=== PATIENT | female | born 1930 | race Caucasian/White ===

== ENCOUNTER 2017-08-10 09:43 | Observation (INO) | payer MEDICARE, OTHER ==
[~2017-08-10] VITALS: Ht 162.6 cm; Wt 63.5 kg
[~2017-08-10 09:43] MED LIST: ADVAIR 100-501 EACH; ALLEGRA ALLERG180 MG PO; AMLODIPINE-BEN1 EACH PO; ASPIRIN81 MG PO; BILBERRY PO; BRIMONIDINE OU; BRINZOLAMIDE OU; CALCIUM,MAG,ZINC PO; CENTRUM COMPLE1 EACH PO; CLOBETASOL1 EA/15 GM TOP; CYANOCOBALAMIN SL; FISH OIL 1,0001 EAC2 PO; LEVOTHYROXINE100 MCG PO; MYRBETRIQ50 MG PO; NEXIUM40 MG PO; NIACIN500 M2 PO; PONARIS NASAL E30 ML; TOPROL XL100 MG PO; TRICOR145 MG PO; VESICARE5 MG PO; ZANTAC150 MG PO; ZETIA10 MG PO
[2017-08-10 10:34] LABS: BASOPHILS % 0.3 % (0.0-1.0); EOSINOPHILS % 0.3 % (0.0-6.0); HEMATOCRIT 40.9 % (34.2-44.1); HEMOGLOBIN 13.8 g/dL (12.0-16.0); LYMPHOCYTES # (AUTO) 1.2 (1.0-3.2); LYMPHOCYTES % 10.2 % (18.0-39.1); MEAN CORPUSCULAR HEMOGLOBIN 29.4 pg (28-32); MEAN CORPUSCULAR HGB CONC 33.7 g/dL (31-35); MONOCYTES # (AUTO) 0.8 (0.2-0.8); MONOCYTES % 7.1 % (4.4-11.3); NEUTROPHILS # (AUTO) 9.4 (2.1-6.9); NEUTROPHILS % 81.8 % (38.7-80.0); PLATELET COUNT 337 x10e3/uL (140-360); RED CELL DISTRIBUTION WIDTH 14.6 % (11.7-14.4)
[2017-08-10 10:38] LABS: INR 1.66; PROTHROMBIN TIME 18.4 seconds (11.9-14.5)
[2017-08-10 10:40] LABS: PARTIAL THROMBOPLASTIN TIME 29.1 seconds (23.8-35.5)
[2017-08-10 10:47] LABS: ALBUMIN 3.7 g/dL (3.5-5.0); ALBUMIN/GLOBULIN RATIO 1.2 (0.8-2.0); ANION GAP 14.9 mmol/L (8-16); CALCIUM 9.4 mg/dL (8.4-10.2); CREATININE, SERUM 1.19 mg/dL (0.57-1.11); MAGNESIUM 1.8 MG/DL (1.3-2.1); POTASSIUM 3.9 mmol/L (3.5-5.1)
[2017-08-10 10:55] LABS: CREATINE KINASE MB 2.7 ng/mL (0-5.0)
[2017-08-10 10:55] LABS: CLARITY,URINE CLEAR (CLEAR); COLOR,URINE YELLOW (YELLOW)
[2017-08-10 10:56] LABS: BILIRUBIN,URINE NEGATIVE (NEGATIVE); KETONES,URINE NEGATIVE (NEGATIVE); LEUKOCYTE ESTERASE ,URINE NEGATIVE (NEGATIVE); NITRITE,URINE NEGATIVE (NEGATIVE); PROTEIN,URINE DIPSTICK NEGATIVE (NEGATIVE); URINE UROBILINOGEN 0.2 mg/dL (0.2 - 1)
[2017-08-10 11:08] LABS: EPITHELIAL CELLS,URINE RARE /LPF
[2017-08-10 11:09] LABS: RBC,URINE 0-5 /HPF (0-5); WBC,URINE (MAN) 0-5 /HPF (0-5)
[2017-08-10 11:10] LABS: HYALINE CASTS 0-1 (0-1)
--- NOTE | 2017-08-10 11:25 | Diagnostic Imaging Report ---
History:Confused Comparison studies:None Technique: Axial images were obtained from the skull base to the vertex. Coronal and sagittal images reconstructed from the axial data. Intravenous contrast: None Findings: Scalp/skull: No abnormalities. Extra-axial spaces: No masses. No fluid collections. Brain sulci: Mildly prominent. Ventricles: Mild compensatory dilatation. No hydrocephalus. Parenchyma: Ill-defined confluent hypodensities in the supratentorial white matter are small vessel ischemic changes. No masses, hemorrhage, acute or chronic cortical vascular insults. Sellar/suprasellar region: No abnormalities. Craniocervical junction: Patent foramen magnum. No Chiari one malformation. Incidental findings: Atherosclerotic calcifications in the carotid siphons and distal vertebral arteries. Impression: No acute abnormalities. Chronic findings: 1. Mild generalized volume loss. 2. Diffuse supratentorial white matter small vessel ischemic changes. Signed by: Dr. Gee Martínez M.D. on 08/10/2017 4:40 PM
[2017-08-10] MEDS ORDERED: SODIUM CHLORIDE 0.9% 1000ML 1,000 ML ONE (13:08)
--- NOTE | 2017-08-10 13:49 | Diagnostic Imaging Report ---
PROCEDURE: A single AP view of the chest. COMPARISON: None. INDICATIONS: COUGH FINDINGS: Lines/tubes: None. Lungs: The lungs are well inflated and clear. Mild bibasilar atelectasis. There is no evidence of pneumonia or pulmonary edema. Pleura: There is no pleural effusion or pneumothorax. Heart and mediastinum: Calcified mediastinal lymph node. The heart and the mediastinum are unremarkable. Bones: No acute bony abnormality. Upper abdomen: No free air under the diaphragm. IMPRESSION: No acute cardiopulmonary disease. Dictated by: Ivan Paredes M.D. on 08/10/2017 at 13:54 Electronically approved by: Ivan Paredes M.D. on 08/10/2017 at 13:54
[2017-08-10] MEDS ORDERED: AMLODIPINE BESYL5 MG PO (14:07)
[2017-08-10] MEDS ORDERED: METOPROLOL TART50 MG PO (14:14)
[2017-08-10] MEDS ORDERED: COLACE100 MG PO (14:17)
[2017-08-10] MEDS ORDERED: DIGOXIN125 MCG PO (14:19)
[2017-08-10] MEDS ORDERED: LASIX20 MG PO (14:19)
[2017-08-10] MEDS ORDERED: e PO (14:23)
[2017-08-10] MEDS ORDERED: LISINOPRIL10 MG PO (14:24)
[2017-08-10] MEDS ORDERED: LATANOPROST2.5 ML OP (14:24)
[2017-08-10] MEDS ORDERED: TOPROL XL50 MG PO (15:00)
[2017-08-10] MEDS ORDERED: VESICARE5 MG PO (15:01)
[2017-08-10] MEDS ORDERED: AZELASTINE HCL6 ML OU (15:06)
[2017-08-10] MEDS ORDERED: AMLODIPINE-BEN1 EACH PO (15:18)
[2017-08-10 15:19] VITALS: BP 91/55
[2017-08-10 16:44] VITALS: BP 118/81
[2017-08-10] MEDS ORDERED: [UNRECOGNIZED DRUG - OTHER] PO SCH (17:45)
[2017-08-10] MEDS ORDERED: FAMOTIDINE 20 MG TAB PO PRN (17:45)
[2017-08-10] MEDS ORDERED: DOCUSATE SODIUM 100 MG CAP PO PRN (17:45)
--- NOTE | 2017-08-10 19:29 | History and Physical ---
HISTORY OF PRESENT ILLNESS: This is an 86-year-old female patient of mine who presented to the emergency room from [facility]. The history was obtained from the patient with the help of the daughter. The patient had recently moved from [place], and the patient was recently admitted to [facility] with atrial fibrillation with rapid ventricular rate and pneumonia, and from there the patient was discharged home. The patient was having some issues at home, so the patient was admitted to the [facility] senior care care unit and the patient was supposed to be discharged tomorrow from the [facility], and the patient was found to be confused last night. The patient was disoriented and anxious as per family, and so the patient was transferred to the ER for further evaluation. The patient was confused with increased BUN and creatinine. ALLERGIES: LATEX. PAST MEDICAL HISTORY: Hypertension, atrial fibrillation, hypothyroidism, dementia, GERD, hyperlipidemia. Recent history of pneumonia. Frequent falls. SOCIAL HISTORY: Denies smoking, denies using alcohol. FAMILY HISTORY: Hypertension. REVIEW OF SYSTEMS: As per history of present illness. The patient has weakness, moderate and generalized. PHYSICAL EXAMINATION VITAL SIGNS: Temperature 98, pulse rate 84, respirations 20, blood pressure 148/74. Pulse ox 100% on room air. HEENT: Normocephalic atraumatic. NECK: No JVD, no lymphadenopathy. LUNGS: Bilateral equal air entry; no rales, no rhonchi. HEART: S1, S2, irregularly irregular systolic murmur. ABDOMEN: Soft, bowel sounds present. NEUROLOGIC: No neurological deficit. EXTREMITIES: No edema. ADMITTING IMPRESSION DIAGNOSES: 1. Altered mental status, possible metabolic encephalopathy. 2. Frequent urination, urinary incontinence. 3. Atrial fibrillation with rapid ventricular rate. 4. Congestive heart failure secondary to atrial fibrillation. 5. Hypertension. 6. Hypothyroidism. 7. Hyperlipidemia. 8. Incontinence. 9. Gastroesophageal reflux disease. 10. Dementia. PLAN: The patient was admitted with the above diagnoses. Will restart her digoxin that was stopped because of non-availability including to control her heart rate, to be monitored. Will do PT and OT evaluation, and also will have case management evaluation for possible placement in assisted living facility and outpatient services. Will repeat laboratory examination tomorrow. The patient has elevated white count. I have discussed in detail with this patient's family. Job#: [id number] [place]
[2017-08-10 20:00] VITALS: BP 105/63
[2017-08-10] MEDS ORDERED: LATANOPROST(OPTH) 2.5 ML BTL OP SCH (21:00)
[2017-08-10] MEDS ORDERED: SOLIFENACIN SUCCINATE 5 MG TAB PO SCH (21:00)
[2017-08-11] VITALS: BP 122/60
[2017-08-11 04:00] VITALS: BP 128/74
[2017-08-11] MEDS ORDERED: APIXABAN 5 MG TABLET PO SCH (05:45)
[2017-08-11] MEDS ORDERED: LEVOTHYROXINE SODIUM 100 MCG TAB PO SCH (06:00)
[2017-08-11 06:14] LABS: BASOPHILS % 0.4 % (0.0-1.0); EOSINOPHILS # (AUTO) 0.1 (0.0-0.4); EOSINOPHILS % 1.3 % (0.0-6.0); HEMATOCRIT 37.3 % (34.2-44.1); HEMOGLOBIN 12.3 g/dL (12.0-16.0); LYMPHOCYTES # (AUTO) 1.5 (1.0-3.2); LYMPHOCYTES % 16.7 % (18.0-39.1); MEAN CORPUSCULAR HEMOGLOBIN 29.3 pg (28-32); MEAN CORPUSCULAR VOLUME 88.8 fL (81-99); MONOCYTES # (AUTO) 0.9 (0.2-0.8); MONOCYTES % 9.4 % (4.4-11.3); NEUTROPHILS # (AUTO) 6.5 (2.1-6.9); NEUTROPHILS % 71.9 % (38.7-80.0); PLATELET COUNT 275 x10e3/uL (140-360); RED CELL DISTRIBUTION WIDTH 14.9 % (11.7-14.4)
[2017-08-11 06:45] LABS: ALBUMIN 3.1 g/dL (3.5-5.0); ALBUMIN/GLOBULIN RATIO 1.2 (0.8-2.0); CALCIUM 8.6 mg/dL (8.4-10.2); CREATININE, SERUM 0.98 mg/dL (0.57-1.11)
--- NOTE | 2017-08-11 06:57 | Diagnostic Imaging Report ---
EXAMINATION: CHEST 2 VIEWS INDICATION: CHF. COMPARISON: 08/10/2017 FINDINGS: TUBES and LINES: None. LUNGS: Lungs are well inflated. Left lung base ill-defined nodularity only seen on AP view measuring 1.5 cm in diameter. There is no evidence of pneumonia or pulmonary edema. PLEURA: No pleural effusion or pneumothorax. HEART AND MEDIASTINUM: The cardiomediastinal silhouette is stable with calcified aortopulmonary window lymph node.. BONES AND SOFT TISSUES: No acute osseous lesion. Soft tissues are unremarkable. UPPER ABDOMEN: No free air under the diaphragm. IMPRESSION: 1. No acute thoracic abnormality. 2. Indeterminate nodule in the left hemithorax measuring 1.5 cm in diameter only seen on AP view Signed by: Dr. John Lopez M.D. on 08/11/2017 6:54 AM
[2017-08-11 08:00] VITALS: BP 112/68
[2017-08-11] MEDS ORDERED: METOPROLOL TARTRATE INJ 1 MG/ML VIAL IV PRN (08:15)
[2017-08-11] MEDS ORDERED: AZELASTINE HCL(OPTH) 6 ML BOTTLE OP SCH (09:00)
[2017-08-11] MEDS ORDERED: FENOFIBRATE 145 MG TAB PO SCH (09:00)
[2017-08-11] MEDS ORDERED: EZETIMIBE 10 MG TAB PO SCH (09:00)
[2017-08-11] MEDS ORDERED: NON-FORMULARY MEDICATION (Amlodipine Besylate/Benazepril (Amlodipine-Benazepril 5-20 Mg) 1 PO SCH (09:00)
[2017-08-11] MEDS ORDERED: BENAZEPRIL HCL 10 MG TAB PO SCH (09:00)
[2017-08-11] MEDS ORDERED: DIGOXIN 0.125 MG TAB PO SCH (09:00)
[2017-08-11] MEDS ORDERED: METOPROLOL SUCCINATE 50 MG TAB XL PO SCH ×2 (09:00)
[2017-08-11] MEDS ORDERED: PANTOPRAZOLE SOD 40 MG TABEC PO SCH (09:00)
[2017-08-11] MEDS ORDERED: AMLODIPINE BESYLATE 5 MG TAB PO SCH (09:00)
--- NOTE | 2017-08-11 09:54 | Consultation ---
DATE OF CONSULTATION: August 10, 2017 CARDIOLOGY CONSULTATION INDICATIONS: AFib. HPI: This is a pleasant 86-year-old female that presented with dysuria, urinary frequency and altered mental status. According to the patient and daughter at the bedside, she used to live at [facility], and relocated to [place], [place], to spend some time with her daughter. While over here, she was admitted at [facility] with pneumonia and later discharged to [facility] for rehab. Over there, she developed some confusion, urinary frequency, and she was admitted for evaluation. She has a history of AFib that was diagnosed earlier this year by her command center analyst in [facility]. She was started on Eliquis. She also stated she had a history of right leg DVT, and was on Coumadin for over 6 months, and later was stopped by her command center analyst over there. She denies any chest pain, any dizziness, any shortness of breath, any diaphoresis, or headache. She also complained of bilateral lower extremity coolness and pain and on the fingers also. BNP was 370. EKG showed AFib, irregularly irregular. Troponin was negative. PAST MEDICAL HISTORY: Hypothyroidism, AFib, hypertension, dementia, GERD, hyperlipidemia, falls, pneumonia, incontinence, broken back bone on the neck, allergies, DVT on the right leg, and pain to lower extremities. PAST SURGICAL HISTORY: Hernia repair and bilateral cataract surgery. FAMILY HISTORY: Positive for hypertension. SOCIAL HISTORY: No smoking. No drinking. She is living with her daughter over here. MEDICATIONS: She was on Norvasc, Colace, Nexium, Zetia, TriCor, Synthroid, metoprolol, Zantac, VESIcare, Eliquis, digoxin, metoprolol, benazepril, pantoprazole, and eye drops. ALLERGIES: SHE IS ALLERGIC TO LATEX. REVIEW OF SYSTEMS: Negative except those mentioned above. PHYSICAL EXAMINATION VITAL SIGNS: Temperature 97, heart rate 90, blood pressure 110/70, respirations 18, oxygen saturation 100% on room air. GENERAL: She is awake, alert and oriented times 3, but complaining of coolness to lower extremities and on the fingers. HEENT: Mucous membrane moist. NECK: Supple. LUNGS: Lungs bilateral clear to auscultation. CARDIOVASCULAR: Irregularly irregular. ABDOMEN: Soft. NEUROLOGICAL: Intact. EXTREMITIES: With no edema. LABS: Sodium 139, potassium 4, chloride 105, CO2 26, BUN 39, creatinine 0.98, glucose 92. White blood cell 9.03, hemoglobin 12.3, hematocrit 37.3, and platelets 275,000. PT 18.4, PTT 29.1 and INR 1.66. IMPRESSION 1. Atrial fibrillation. 2. Hypothyroidism. 3. History of deep venous thrombosis on the right leg. 4. Hypertension. 5. Altered mental status. 6. Hyperlipidemia. PLAN 1. Will go ahead and get an echocardiogram to assess the LV and the valve function. 2. Heart rate fluctuates. She is on Eliquis, beta bethanie and digoxin. Will go ahead and get bilateral lower extremity venous Doppler to rule out any DVT. Will also get bilateral carotid Doppler to rule out any occlusion due to the altered mental status. Will check a dig level and get an EKG. Her blood pressure has been running in the 110s. Will go ahead and decrease the beta bethanie. Further cardiac workup pending clinical course. Thank you for this consultation. DICTATED BY NICCI LORENZANA NP Job#: [id number] [place]
[2017-08-11 12:00] VITALS: BP 103/56
--- NOTE | 2017-08-11 14:23 | Discharge Summary ---
She is an 86-year-old female patient who was admitted under observation for altered mental status, metabolic encephalopathy. ADMITTING IMPRESSION/DIAGNOSIS 1. Altered mental status. 2. Urinary frequency. 3. Atrial fibrillation with rapid rate. 4. Decompensated congestive heart failure secondary to the atrial fibrillation with the uncontrolled rate. 5. Recent pneumonia. 6. Dementia. 7. Hypertension. 8. Hypothyroidism. 9. Urinary incontinence. HOSPITAL COURSE SUMMARY: Patient was admitted with the above diagnoses. Patient was admitted under observation. Telemetry monitoring was done. Patient's urine was negative for an infection. Patient was given metoprolol 100 mg twice a day. Patient will need local wound care for the foot abrasions that were secondary to the compression stockings. Patient's metoprolol will be increased to 100 mg twice a day. Patient will be followed up as outpatient with me tomorrow. Patient was recently admitted at [facility]; so, her previous echocardiogram and all the results will be obtained, and if necessary other workup will be done as outpatient. The patient will be discharged home with home health therapy. The patient will be followed up as outpatient with me as well as Cardiology. EMELIA BECKFORD MD Job#: [id number] MARTINA
== END 2017-08-11 14:46 | disposition home or self-care (01) ==
LOC: ER 09:47 → ERHOLD 12:54 → MED/SURG2 13:38
PROVIDERS: ADMIT Internal Medicine; ATTEND Internal Medicine
DX: G93.41 Metabolic encephalopathy (principal); R30.0 Dysuria; N39.41 Urge incontinence; I48.91 Unspecified atrial fibrillation; E03.9 Hypothyroidism, unspecified; E78.5 Hyperlipidemia, unspecified; K21.9 Gastro-esophageal reflux disease without esophagitis; F03.90 Unspecified dementia, unspecified severity, without behavioral disturbance, psychotic disturbance, mood disturbance, and anxiety; Z86.718 Personal history of other venous thrombosis and embolism; Z79.01 Long term (current) use of anticoagulants; S90.812A Abrasion, left foot, initial encounter; S90.811A Abrasion, right foot, initial encounter; I11.0 Hypertensive heart disease with heart failure; I50.9 Heart failure, unspecified
CPT/HCPCS: 36415 ×2; 70450; 71045; 71046; 80053 ×2; 80162; 81001; 82150; 82550; 82553; 83690; 83735; 83880; 84484; 85025 ×2; 85610; 85730; 87086; 93005; 93306; 93880; 93970; 97116; 97161; 99285; G0378 ×2; J7030; S0164

== ENCOUNTER → 2017-08-15 | Outpatient (CLI) | payer MEDICARE, OTHER ==
[~2017-08-15] MED LIST changes: +AMLODIPINE BESYL5 MG PO; +AZELASTINE HCL6 ML OU; +COLACE100 MG PO; +DIGOXIN125 MCG PO; +GADOBENATE DIMEGLUMINE 1 ML IV ONE; +LASIX20 MG PO; +LATANOPROST2.5 ML OP; +LISINOPRIL10 MG PO; +METOPROLOL TART50 MG PO; +TOPROL XL50 MG PO; +e PO
--- NOTE | 2017-08-15 18:29 | Diagnostic Imaging Report ---
EXAMINATION: MRI of the brain with and without contrast HISTORY: Confusion, hallucinations. COMPARISON: Head CT on 08/10/2017 TECHNIQUE: Pre-contrast: Sagittal T2; axial T1-IR, T2, MPGR, DWI, FLAIR; Post-contrast: axial and coronal T1. Intravenous contrast: 10 mL of Gadavist. IMAGE QUALITY: Motion artifact limits evaluation of the sequences. FINDINGS: Parenchyma: 1. Scattered and moderate confluent periventricular white matter T2 hyperintense foci, most likely nonspecific chronic medical vascular ischemic changes. Otherwise no areas of abnormal signal intensity or enhancement in the brain parenchyma. 2. No mass or hemorrhage. No acute or chronic vascular insult. Skull: No abnormal signal intensity or enhancement. Major arteries: Expected flow voids present. Dural sinuses: Expected flow voids present. Ventricles: No hydrocephalus or displacement. Subarachnoid spaces: No abnormal signal intensity or enhancement. Brain volume: Normal for age. Foramen magnum: No mass, Chiari malformation, or basilar invagination. Sella: No gross mass. Paranasal/mastoid sinuses: Unremarkable. IMPRESSION: Mild chronic microvascular ischemic changes, otherwise no intracranial abnormalities. Signed by: Dr. Yamile Amador M.D. on 08/15/2017 6:25 PM
== END ==
LOC: MRI 14:26
PROVIDERS: ATTEND Internal Medicine
DX: F03.91 Unspecified dementia, unspecified severity, with behavioral disturbance (principal)
CPT/HCPCS: 70553

== ENCOUNTER 2017-11-14 22:39 | Emergency (ER) | payer MEDICARE, OTHER ==
[~2017-11-14] VITALS: Ht 162.6 cm; Wt 63.5 kg
[~2017-11-14 22:39] MED LIST changes: -GADOBENATE DIMEGLUMINE 1 ML IV ONE
[2017-11-14] MEDS ORDERED: ACETAMINOPHEN 325 MG TAB PO ONE (23:00)
[2017-11-14] MEDS ORDERED: ASPIRIN 81 MG CHEW TAB PO ONE (23:00)
[2017-11-14 23:55] LABS: BASOPHILS # (AUTO) 0.1 (0.0-0.1); BASOPHILS % 0.6 % (0.0-1.0); EOSINOPHILS # (AUTO) 0.8 (0.0-0.4); EOSINOPHILS % 8.2 % (0.0-6.0); HEMOGLOBIN 12.2 g/dL (12.0-16.0); LYMPHOCYTES # (AUTO) 1.6 (1.0-3.2); LYMPHOCYTES % 16.3 % (18.0-39.1); MEAN CORPUSCULAR HEMOGLOBIN 28.6 pg (28-32); MEAN CORPUSCULAR HGB CONC 32.1 g/dL (31-35); MONOCYTES # (AUTO) 0.8 (0.2-0.8); MONOCYTES % 7.8 % (4.4-11.3); NEUTROPHILS # (AUTO) 6.5 (2.1-6.9); NEUTROPHILS % 66.8 % (38.7-80.0); PLATELET COUNT 332 x10e3/uL (140-360); RED BLOOD COUNT 4.27 x10e6/uL (3.6-5.1); RED CELL DISTRIBUTION WIDTH 14.1 % (11.7-14.4)
[2017-11-15 00:04] LABS: INR 1.23; PROTHROMBIN TIME 16.6 seconds (11.9-14.5)
[2017-11-15 00:05] LABS: PARTIAL THROMBOPLASTIN TIME 32.6 seconds (23.8-35.5)
[2017-11-15 00:16] LABS: ALANINE AMINOTRANSFERASE 19 IU/L (0-55); ALBUMIN 3.2 g/dL (3.5-5.0); ALBUMIN/GLOBULIN RATIO 0.8 (0.8-2.0); ALKALINE PHOSPHATASE 61 IU/L (40-150); ANION GAP 16.6 mmol/L (8-16); BLOOD UREA NITROGEN 15 mg/dL (7-26); BUN/CREATININE RATIO 18 (6-25); CALCIUM 9.1 mg/dL (8.4-10.2); CARBON DIOXIDE 27 mmol/L (22-29); CHLORIDE 102 mmol/L (98-107); CREATINE KINASE 28 IU/L (29-168); CREATININE, SERUM 0.84 mg/dL (0.57-1.11); EST GLOMERULAR FILTRATION RATE > 60 ML/MIN (60-); GLUCOSE 111 mg/dL (74-118); POTASSIUM 3.6 mmol/L (3.5-5.1); SODIUM 142 mmol/L (136-145)
--- NOTE | 2017-11-15 00:31 | Diagnostic Imaging Report ---
History:AMS, high blood pressure Comparison studies:None Technique: Axial images were obtained from the skull base to the vertex. Coronal and sagittal images reconstructed from the axial data. Intravenous contrast: None Dose modulation, iterative reconstruction, and/or weight based adjustment of the mA/kV was utilized to reduce the radiation dose to as low as reasonably achievable. Findings: Scalp/skull: No abnormalities. Extra-axial spaces: No masses. No fluid collections. Brain sulci: Mildly prominent. Ventricles: Mild compensatory dilatation. No hydrocephalus. Parenchyma: Scattered small hypodensities in the supratentorial white matter are small vessel ischemic changes. No masses, hemorrhage, acute or chronic cortical vascular insults. Sellar/suprasellar region: No abnormalities. Craniocervical junction: Patent foramen magnum. No Chiari one malformation. Incidental findings: Atherosclerotic calcifications in the carotid siphons . Impression: No acute abnormalities. Chronic findings: 1. Mild generalized volume loss. 2. Mild to moderate supratentorial white matter small vessel ischemic changes. Signed by: DR Chencho Zhong M.D. on 11/15/2017 12:28 AM
[2017-11-15 02:44] VITALS: BP 151/78
== END 2017-11-15 03:20 | disposition home or self-care (01) ==
LOC: ER 22:39
DX: G44.1 Vascular headache, not elsewhere classified (principal); I48.91 Unspecified atrial fibrillation; I10 Essential (primary) hypertension; E03.9 Hypothyroidism, unspecified; K21.9 Gastro-esophageal reflux disease without esophagitis; E78.5 Hyperlipidemia, unspecified; Z91.81 History of falling; Z79.01 Long term (current) use of anticoagulants
CPT/HCPCS: 36415; 70450; 80053; 82550; 82553; 84484; 85025; 85610; 85730; 93005; 99284

== ENCOUNTER 2017-11-28 08:09 | Emergency (ER) | payer MEDICARE, OTHER ==
[~2017-11-28] VITALS: Ht 162.6 cm; Wt 63.5 kg
--- NOTE | 2017-11-28 10:04 | Diagnostic Imaging Report ---
History:Fall, on blood thinners Comparison studies:CT head 11/15/2017 and 08/10/2017. MRI brain 2017 Technique: Axial images were obtained from the skull base to the vertex. Coronal and sagittal images reconstructed from the axial data. Intravenous contrast: None Dose modulation, iterative reconstruction, and/or weight based adjustment of the mA/kV was utilized to reduce the radiation dose to as low as reasonably achievable. Findings: Scalp/skull: No abnormalities. Extra-axial spaces: No masses. No fluid collections. Brain sulci: Mildly prominent. Ventricles: Mild compensatory dilatation. No hydrocephalus. Parenchyma: Scattered hypodensities in the supratentorial white matter are small vessel ischemic changes. No masses, hemorrhage, acute or chronic cortical vascular insults. Sellar/suprasellar region: No abnormalities. Craniocervical junction: Patent foramen magnum. No Chiari one malformation. Incidental findings: Atherosclerotic calcifications in the carotid siphons and vertebral arteries . Impression: No acute abnormalities. Chronic findings: 1. Mild generalized volume loss. 2. Moderate supratentorial white matter small vessel ischemic changes. Signed by: DR Chencho Zhong M.D. on 11/28/2017 10:01 AM
--- NOTE | 2017-11-28 10:08 | Diagnostic Imaging Report ---
History: Fall Comparison studies: None Technique: Axial images were obtained through the cervical region.. Coronal and sagittal images reconstructed from the axial data.. Intravenous contrast: None Dose modulation, iterative reconstruction, and/or weight based adjustment of the mA/kV was utilized to reduce the radiation dose to as low as reasonably achievable. Findings: Fractures: None. Soft tissues: No gross abnormalities. Atlantoaxial articulation: Degenerative changes without acute abnormality. Alignment: Normal lordosis. No scoliosis. Cervicomedullary junction: No abnormalities. The foramen magnum is patent. Vertebrae: No infection or neoplasm. Small limbus vertebra at C5 superior endplate. Degenerative changes: Uncinate process and facet hypertrophy results in multilevel moderate foraminal narrowing, from C4 through C6 without significant canal stenosis. Atherosclerotic calcifications of the carotid bulbs IMPRESSION: 1. No acute cervical spine abnormalities. 2. Cannot exclude ligament, spinal cord and or vascular abnormalities on the basis of this examination. Signed by: DR Chencho Zhong M.D. on 11/28/2017 10:05 AM
[2017-11-28 11:10] VITALS: BP 158/85
[2017-11-28] MEDS ORDERED: NIFEDIPINE 10 MG CAP PO ONE (11:30)
== END 2017-11-28 12:50 | disposition home or self-care (01) ==
LOC: ER 08:09
DX: Z04.3 Encounter for examination and observation following other accident (principal); W06.XXXA Fall from bed, initial encounter; Y93.84 Activity, sleeping; Y92.003 Bedroom of unspecified non-institutional (private) residence as the place of occurrence of the external cause; I10 Essential (primary) hypertension; E03.9 Hypothyroidism, unspecified; I50.9 Heart failure, unspecified
CPT/HCPCS: 70450; 72125; 99283

== ENCOUNTER 2017-12-29 14:05 | Inpatient (IN) | payer MEDICARE, OTHER ==
[~2017-12-29] VITALS: Ht 160 cm; Wt 63.1 kg
--- OUTSIDE RECORDS SUMMARY | 2017-12-29 14:09 | XMS REPORT | Continuity of Care Document ---
Author Author [facility] Interface Address Unknown Phone Unavailable Problems Problem Status Onset Date Classification Date Reported Comments Source XRAY Active 07/06/2017 [facility] AFIB Active 06/23/2017 [facility] PNEUMONIA, A FIB, CHF Active 06/23/2017 [facility] Pneumonia, unspecified organism 06/29/2017 [facility] UNSPECIFIED ATRIAL FIBRILLATION Active [facility] PNEUMONIA, UNSPECIFIED ORGANISM Active [facility] HEART FAILURE, UNSPECIFIED Active [facility] COUGH Active [facility] Medications Medication Details Route Status Patient Instructions Ordering Provider Order Date Source Furosemide 40 MG Oral Tablet [Lasix] 40 mg, 1 tab, Route: PO, Drug form: TAB, Daily, Dosing Weight 71.591, kg, Start date: 06/27/17 9:00:00 CDT, Duration: 30 day, Stop date: 07/26/17 9:00:00 CDTNotes: (Same as: Lasix) May cause GI upset. Give with food or milk. No Longer Active 06/27/2017 [facility] Amlodipine 5 MG / Benazepril hydrochloride 20 MG Oral Capsule 1 cap, Route: PO, Drug Form: CAP, Dosing Weight 71.591, kg, Daily, Start date: 06/26/17 17:00:00 CDT, Duration: 30 day, Stop date: 07/26/17 9:00:00 CDT No Longer Active 06/26/2017 [facility] potassium chloride 10 mEq oral tablet, extended release 10 mEq=1 tab, PO, Daily, # 14 tab, 0 Refill(s), Pharmacy: [facility] [id number] Active 06/26/2017 [facility] Digoxin 0.25 MG Oral Tablet 0.25 mg=1 tab, PO, Daily, # 30 tab, 0 Refill(s), Pharmacy: [facility] [id number] Active 06/26/2017 [facility] Saccharomyces boulardii lyo 250 MG Oral Capsule [Florastor] 250 mg=1 cap, PO, BID, X 7 day, # 20 cap, 0 Refill(s), Pharmacy: [facility] [id number] Active 06/26/2017 [facility] Cefuroxime 500 MG Oral Tablet [Ceftin] 500 mg=1 tab, PO, Q12H, X 5 day, # 10 tab, 0 Refill(s), Pharmacy: [facility] [id number] Active 06/26/2017 [facility] Furosemide 20 MG Oral Tablet [Lasix] 20 mg=1 tab, PO, Daily, # 30 tab, 0 Refill(s), Pharmacy: [facility] [place] [id number] Active 06/26/2017 [facility] Dextromethorphan Hydrobromide 2 MG/ML / Guaifenesin 20 MG/ML Oral Solution 10 mL, PO, Q4H, PRN Cough, X 7 day, # 120 mL, 0 Refill(s), Pharmacy: [facility] [place] [id number] Active 06/26/2017 [facility] potassium chloride 20 mEq oral tablet, extended release 40 mEq, 2 tab, Route: PO, Drug form: ERTAB, ONCE, Dosing Weight 71.591, kg, Start date: 06/26/17 11:31:00 CDT, Stop date: 06/26/17 11:31:00 CDTNotes: (Same as: K-Dur 20) "Do Not Crush" For patients unable to swallow tablet, dissolve in one half glass of water. Allow about 2 minutes for the tablets to disintegrate. Stir before giving to prepare slurry and administer. Please exclude Patient’s with feeding tube less than 14 Norwegian (Dobhoff, J-tube etc) and pediatric and patients. With food and full glass of water Inactive 06/26/2017 [facility] amLODIPine 5 mg, 1 tab, Route: PO, Drug form: TAB, Daily, Start date: 06/25/17 17:00:00 CDT, Duration: 30 day, Stop date: 07/24/17 17:00:00 CDTNotes: (Same as: Norvasc) No Longer Active 06/25/2017 [facility] lisinopril 20 mg, 1 tab, Route: PO, Drug form: TAB, Q24H, Start date: 06/25/17 14:00:00 CDT, Duration: 30 day, Stop date: 07/24/17 17:00:00 CDTNotes: (Same as: Prinivil, Zestril) No Longer Active 06/25/2017 [facility] Digoxin 0.25 MG Oral Tablet 0.25 mg, 1 tab, Route: PO, Drug form: TAB, Daily, Dosing Weight 71.591, kg, Priority: Routine, Start date: 06/25/17 9:00:00 CDT, Duration: 30 day, Stop date: 07/24/17 9:00:00 CDTNotes: Take on an Empty Stomach (Same as: Lanoxin) No Longer Active 06/25/2017 [facility] Lasix 40 mg, 4 mL, Route: IVP, Drug form: INJ, Daily, Dosing Weight 71.591, kg, Priority: NOW, Start date: 06/24/17 11:19:00 CDT, Duration: 30 day, Stop date: 07/24/17 9:00:00 CDTNotes: (Same as: Lasix) MEDICATION WASTE Product Size: 40 mg Product Wasted: ___ mg No Longer Active 06/24/2017 [facility] pneumococcal capsular polysaccharide type 1 vaccine / pneumococcal capsular polysaccharide type 10A vaccine / pneumococcal capsular polysaccharide type 11A vaccine / pneumococcal capsular polysaccharide type 12F vaccine / pneumococcal capsular polysacchar 0.5 mL, Route: IM, Drug Form: INJ, Daily, Start date: 06/24/17 11:00:00 CDT, Duration: 1 doses or times, Stop date: 06/24/17 11:00:00 CDTNotes: (Same as: Pneumovax 23) Refrigerate Inactive 06/24/2017 [facility] Tricor 145 mg, 1 tab, Route: PO, Drug form: TAB, Daily, Dosing Weight 71.591, kg, Start date: 06/24/17 9:00:00 CDT, Duration: 30 day, Stop date: 07/23/17 9:00:00 CDTNotes: (Same as: Tricor) No Longer Active 06/24/2017 [facility] Zetia 10 mg, 1 tab, Route: PO, Drug form: TAB, Daily, Dosing Weight 71.591, kg, Start date: 06/24/17 9:00:00 CDT, Duration: 30 day, Stop date: 07/23/17 9:00:00 CDTNotes: (Same as: Zetia) No Longer Active 06/24/2017 [facility] Nexium 40 mg, Route: PO, Drug form: ECCAP, Daily, Dosing Weight 71.591, kg, Start date: 06/24/17 9:00:00 CDT, Duration: 30 day, Stop date: 07/23/17 9:00:00 CDT No Longer Active 06/24/2017 [facility] 24 HR mirabegron 50 MG Extended Release Tablet [Myrbetriq] 50 mg, 1 tab, Route: PO, Drug form: ERTAB, Daily, Dosing Weight 71.591, kg, Start date: 06/24/17 9:00:00 CDT, Duration: 30 day, Stop date: 07/23/17 9:00:00 CDT No Longer Active 06/24/2017 [facility] Protonix 40 mg, 1 tab, Route: PO, Drug form: ECTAB, Daily, Start date: 06/24/17 9:00:00 CDT, Duration: 30 day, Stop date: 07/23/17 9:00:00 CDTNotes: Tablet should not be chewed or crushed. (Same as: Protonix) No Longer Active 06/24/2017 [facility] Niacin 500 mg, 1 tab, Route: PO, Drug form: TAB, Daily, Dosing Weight 71.591, kg, Start date: 06/24/17 9:00:00 CDT, Duration: 30 day, Stop date: 07/23/17 9:00:00 CDTNotes: With food. No Longer Active 06/24/2017 [facility] please bring pt's MYRBETRIQ to pharmacy for verification please bring pt's MYRBETRIQ to pharmacy for verification, reminder, Drug form: MISC, Route: MISC, Daily, 06/24/17 9:00:00 CDT, Duration: 30 day, Stop date: 07/23/17 9:00:00 CDT No Longer Active 06/24/2017 [facility] *Pts own med-Myrbetriq* *Pts own med-Myrbetriq*, 50 mg, 1 tab, Drug form: MISC, Route: PO, Daily, 06/24/17 9:00:00 CDT, Duration: 30 day, Stop date: 07/23/17 9:00:00 CDT No Longer Active 06/24/2017 [facility] Synthroid 100 microgram, 1 tab, Route: PO, Drug form: TAB, [id number], Dosing Weight 71.591, kg, Start date: 06/24/17 6:30:00 CDT, Duration: 30 day, Stop date: 07/23/17 6:30:00 CDTNotes: Take 1 hour before or 2 hours after meal; Enteral feeds may interefere with the absorption of this medication. (Same as:Levothroid, Synthroid) No Longer Active 06/24/2017 [facility] Azithromycin 500 mg, 2 tab, Route: PO, Drug form: TAB, [id number], Dosing Weight 71.591, kg, Start date: 06/24/17 6:00:00 CDT, Duration: 2 day, Stop date: 06/25/17 6:00:00 CDT, ABX Indication: PneumoniaNotes: Take 1 ho ur before or 2 hours after meals. (Same As: Zithromax) No Longer Active 06/24/2017 [facility] Eliquis 5 mg, 1 tab, Route: PO, Drug form: TAB, Q12H, Dosing Weight 71.591, kg, Start date: 06/23/17 21:00:00 CDT, Duration: 30 day, Stop date: 07/23/17 9:00:00 CDTNotes: Same as: Eliquis No Longer Active 06/24/2017 [facility] 24 HR Metoprolol Tartrate 100 MG Extended Release Tablet [Toprol] 100 mg, 1 tab, Route: PO, Drug form: ERTAB, Q12H, Start date: 06/23/17 21:00:00 CDT, Duration: 30 day, Stop date: 07/23/17 9:00:00 CDTNotes: (Same as: Toprol XL) May split tab, but do not crush. No Longer Active 06/24/2017 [facility] Azelastine hydrochloride 0.5 MG/ML Ophthalmic Solution 1 drp, Route: BOTH EYES, BID, Drug form: SOLN, PRN Allergic reaction, Start date: 06/23/17 20:29:00 CDT, Duration: 30 day, Stop date: 07/23/17 20:28:00 CDTNotes: Non-Formulary Drug (Same As: Optivar) No Longer Active 06/24/2017 [facility] latanoprost 1 drp, Route: BOTH EYES, QPM, Drug form: SOLN, Start date: 06/23/17 17:00:00 CDT, Duration: 30 day, Stop date: 07/22/17 17:00:00 CDTNotes: Keep refrigerated. (Same as:Xalatan) Opened bottle may be s tored at room temperature for 6 weeks No Longer Active 06/23/2017 [facility] Budesonide 0.5 mg, 2 mL, Route: NEB, Drug form: SUSP, RBID, Dosing Weight 71.591, kg, Start date: 06/23/17 16:12:00 CDT, Duration: 30 day, Stop date: 07/23/17 8:00:00 CDTNotes: (Same As: Pulmicort) No Longer Active 06/23/2017 [facility] potassium chloride 20 mEq oral tablet, extended release 20 mEq, 1 tab, Route: PO, Drug form: ERTAB, Q4H, Dosing Weight 71.591, kg, Start date: 06/23/17 16:00:00 CDT, Duration: 2 doses or times, Stop date: 06/23/17 20:00:00 CDTNotes: (Same as: K-Dur 20) "Do Not Crush" For patients unable to swallow tablet, dissolve in one half glass of water. Allow about 2 minutes for the tablets to disintegrate. Stir before giving to prepare slurry and administer. Please exclude Patients with feeding tube less than 14 Norwegian (Dobhoff, J-tube etc) and pediatric and patients. With food and full glass of water Inactive 06/23/2017 [facility] Omnipaque 350 100 ml, Route: IV, Drug Form: SOLN, Dosing Weight 71.591, kg, ONCE, Start date: 06/23/17 15:37:00 CDT, Stop date: 06/23/17 15:37:00 CDTNotes: (same as:Omnipaque 350). WASTE: F/P - Black; E - Municipal Trash Bin Inactive 06/23/2017 [facility] Digoxin 0.25 mg, 1 mL, Route: IVP, Drug form: INJ, Daily, Dosing Weight 71.591, kg, Start date: 06/23/17 15:30:00 CDT, Duration: 30 day, Stop date: 07/22/17 15:30:00 CDTNotes: (Same as: Lanoxin) No Longer Active 06/23/2017 [facility] normal saline 0.9% IV 1,000 mL 1,000 mL, Rate: 75 ml/hr, Infuse over: 13.3 hr, Route: IV, Dosing Weight 71.591 kg, Total Volume: 1,000, Start date: 06/23/17 14:58:00 CDT, Duration: 30 day, Stop date: 07/23/17 14:57:00 CDT, 1.77, m2 No Longer Active 06/23/2017 [facility] NS (Bolus) IV 250 mL, 250 ml/hr, Infuse Over: 1 hr, Route: IV, 250, Drug form: INJ, ONCE, Priority: STAT, Dosing Weight 71.591 kg, Start date: 06/23/17 14:58:00 CDT, Stop date: 06/23/17 14:58:00 CDT Inactive 06/23/2017 [facility] normal saline 0.9% IV 500 mL 500 mL, Rate: 60 ml/hr, Infuse over: 8.3 hr, Route: IV, Dosing Weight 71.591 kg, Total Volume: 500, Start date: 06/23/17 14:45:00 CDT, Duration: 30 day, Stop date: 07/23/17 14:44:00 CDT, 1.77, m2 Inactive 06/23/2017 [facility] Pepcid AC 10 mg, 1 tab, Route: PO, Drug form: TAB, Q12H, PRN Heartburn, Start date: 06/23/17 10:05:00 CDT, Duration: 30 day, Stop date: 07/23/17 10:04:00 CDTNotes: (Same as: Pepcid AC) No Longer Active 06/23/2017 [facility] Docusate Sodium 100 MG Oral Capsule [Colace] 100 mg, 1 cap, Route: PO, Drug form: CAP, BID, Dosing Weight 71.591, kg, PRN Constipation, Start date: 06/23/17 9:58:00 CDT, Duration: 30 day, Stop date: 07/23/17 9:57:00 CDTNotes: (Same as: Colace) (Do Not Crush) No Longer Active 06/23/2017 [facility] Zantac 75 mg, Route: PO, BID, Dosing Weight 71.591, kg, PRN Heartburn, Start date: 06/23/17 9:58:00 CDT, Duration: 30 day, Stop date: 07/23/17 9:57:00 CDT Inactive 06/23/2017 [facility] azelastine 1 drp, BOTH EYES, BID, 0 Refill(s) Active 06/23/2017 [facility] Zyrtec 10 mg, PO, Daily, 0 Refill(s) No Longer Active 06/23/2017 [facility] Docusate Sodium 100 MG Oral Capsule [Colace] 100 mg=1 cap, PO, BID, PRN as needed for constipation, # 60 cap, 0 Refill(s) Active 06/23/2017 [facility] oral tablet 1 tab, PO, Daily, 0 Refill(s) Active 06/23/2017 [facility] Streptococcus pneumoniae serotype 1 capsular antigen diphtheria [id number] protein conjugate vaccine / Streptococcus pneumoniae serotype 14 capsular antigen diphtheria [id number] protein conjugate vaccine / Streptococcus pneumoniae serotype 18C capsular antigen d 0.5 mL, Route: IM, Drug Form: INJ, Daily, Start date: 06/23/17 9:00:00 CDT, Duration: 1 doses or times, Stop date: 06/23/17 9:00:00 CDT No Longer Active 06/23/2017 [facility] metoprolol tartrate 25 mg, 1 tab, Route: PO, Drug form: TAB, Q12H, kg, Start date: 06/23/17 9:00:00 CDT, Duration: 30 day, Stop date: 07/22/17 21:00:00 CDTNotes: (Same as: Lopressor) Inactive 06/23/2017 [facility] Eliquis 5 mg, 1 tab, Route: PO, Drug form: TAB, Q12H, kg, Start date: 06/23/17 9:00:00 CDT, Duration: 30 day, Stop date: 07/22/17 21:00:00 CDTNotes: Same as: Eliquis Inactive 06/23/2017 [facility] Calcium 500+D 1 tab, CHEW, BID, 0 Refill(s) Active 06/23/2017 [facility] Zantac 75 mg, PO, BID, PRN Heartburn, 0 Refill(s) Active 06/23/2017 [facility] Amlodipine 5 MG / Benazepril hydrochloride 20 MG Oral Capsule 1 cap, PO, Daily, # 30 cap, 0 Refill(s) Active 06/23/2017 [facility] biotin PO, Daily, 0 Refill(s) Active 06/23/2017 [facility] Esomeprazole 40 MG Enteric Coated Capsule [Nexium] 40 mg=1 cap, PO, Daily, # 30 cap, 0 Refill(s) Active 06/23/2017 [facility] Levothyroxine Sodium 0.1 MG Oral Tablet [Synthroid] 100 microgram=1 tab, PO, Daily, # 30 tab, 0 Refill(s) Active 06/23/2017 [facility] ezetimibe 10 MG Oral Tablet [Zetia] 10 mg=1 tab, PO, Daily, # 30 tab, 0 Refill(s) Active 06/23/2017 [facility] Tricor 145 mg, PO, Daily, 0 Refill(s) Active 06/23/2017 [facility] 24 HR Metoprolol Tartrate 100 MG Extended Release Tablet [Toprol] 100 mg=1 tab, PO, BID, 0 Refill(s) Active 06/23/2017 [facility] latanoprost 1 drp, BOTH EYES, QPM, 0 Refill(s) Active 06/23/2017 [facility] apixaban 5 MG Oral Tablet [Eliquis] 5 mg, PO, Q12H, 0 Refill(s) Active 06/23/2017 [facility] solifenacin succinate 5 MG Oral Tablet [VESICARE] 5 mg=1 tab, PO, Daily, # 30 tab, 0 Refill(s) No Longer Active 06/23/2017 [facility] niacin 500 mg oral capsule 500 mg=1 cap, PO, Daily, 0 Refill(s) Active 06/23/2017 [facility] 24 HR mirabegron 50 MG Extended Release Tablet [Myrbetriq] 50 mg=1 tab, PO, Daily, # 30 tab, 0 Refill(s) Active 06/23/2017 [facility] calcium carbonate-magnesium carbonate 250 mg-300 mg oral tablet 1 tab, PO, Daily, 0 Refill(s) Active 06/23/2017 [facility] Ceftriaxone 1 gm, Route: IV, [id number], kg, Start date: 06/23/17 5:00:00 CDT, Duration: 7 day, Stop date: 06/29/17 17:00:00 CDT, ABX Indication: PneumoniaNotes: (Same As: Rocephin). Use with 100 mL NS and infuse over 30 min MEDICATION WASTE Product Size: 1000 mg Product Wasted: ___ mg No Longer Active 06/23/2017 [facility] RN UPDATE H/W/A RN UPDATE H/W/A, ATTN:RN - UPDATE, Drug form: MISC, Route: MISC, Q5Min, 06/23/17 3:40:00 CDT, Duration: 2 hr, Stop date: 06/23/17 5:35:00 CDT Inactive 06/23/2017 [facility] Azithromycin 500 mg, Route: IVPB, [id number], kg, Start date: 06/23/17 3:00:00 CDT, Duration: 3 day, Stop date: 06/25/17 3:00:00 CDT, ABX Indication: PneumoniaNotes: (Same As: Zithromax IV) Inactive 06/23/2017 [facility] Codeine Phosphate 2 MG/ML / Guaifenesin 20 MG/ML Oral Solution 5 mL, Route: PO, Drug Form: LIQ, kg, Q4H, PRN Cough, Start date: 06/23/17 2:02:00 CDT, Duration: 30 day, Stop date: 07/23/17 2:01:00 CDTNotes: (Same As: Robitussin AC) No Longer Active 06/23/2017 [facility] Dextromethorphan Hydrobromide 2 MG/ML / Guaifenesin 20 MG/ML Oral Solution 10 mL, Route: PO, Drug Form: LIQ, kg, Q4H, PRN Cough, Start date: 06/23/17 2:02:00 CDT, Duration: 30 day, Stop date: 07/23/17 2:01:00 CDTNotes: (dextromethorphan-guaifenesin 10-100/5 ml LIQ) (Same as: Robitussin-DM) No Longer Active 06/23/2017 [facility] Acetaminophen 650 mg, 2 tab, Route: PO, Drug form: TAB, Q4H, kg, PRN Pain Score 1-3, For fever > 100.4. Not to exceed 4 grams in 24 hours, Start date: 06/23/17 2:02:00 CDT, Duration: 30 day, Stop date: 07/23/17 2:01:00 CDTNotes: Do not exceed 4 gm/day. (Same as: Tylenol) No Longer Active 06/23/2017 [facility] Allergies, Adverse Reactions, Alerts Substance Category Reaction Severity Reaction type Status Date Reported Comments Source Latex Assertion Mild Allergy to substance Active [facility] Immunizations Immunization Date Given Site Status Last Updated Comments Source influenza virus vaccine, inactivated<sup>1</sup> 06/24/2017 completed [facility] Note: recieved Nov 2016 [facility] pneumococcal 23-valent vaccine 06/24/2017 Right deltoid completed [facility] pneumococcal 13-valent vaccine<sup>2</sup> 06/24/2017 completed [facility] Note: received at dr's office 2 yrs ago [facility] Results Order Name Results Value Reference Range Date Interpretation Comments Source Chest 2 views DX Chest 2 views DX PROCEDURE: Chest, PA and lateral radiographs, 2 views. INDICATION: R05 Cough. COMPARISON: None. FINDINGS: No pleural effusion or pneumothorax. Lungs are clear without acute infiltrates. Calcified granuloma within the aorticopulmonary window. Mild aortic wall calcifications. Mediastinum is otherwise unremarkable. Degenerative changes in the spine and shoulders. Decreased bone density. IMPRESSION: 1. No evidence for acute infiltrates. SL: [id number] 07/06/2017 - - Read by: Renzo Roy MD Dictated Date/time: 07/06/17 18:06 Electronically Signed by: Renzo Roy MD 07/06/17 18:07 FINAL REPORT [facility] CHEM PANEL eGFR 54 mL/min/1.73m2 06/26/2017 Result Comment: The eGFR is calculated using the CKD-EPI formula. In most young, healthy individuals the eGFR will be >90 mL/min/1.73m2. The eGFR declines with age. An eGFR of 60-89 may be normal in some populations, particularly the elderly, for whom the CKD-EPI formula has not been extensively validated. Use of the eGFR is not recommended in the following populations: Individuals with unstable creatinine concentrations, including patients and those with serious co-morbid conditions. Patients with extremes in muscle mass or diet. The data above are obtained from the National Kidney Disease Education Program (NKDEP) which additionally recommends that when the eGFR is used in patients with extremes of body mass index for purposes of drug dosing, the eGFR should be multiplied by the estimated BMI. [facility] CHEM PANEL Glucose Lvl 103 mg/dL 70 - 99 06/26/2017 [facility] CHEM PANEL Sodium Lvl 140 meq/L 135 - 145 06/26/2017 [facility] CHEM PANEL Chloride Lvl 99 meq/L 95 - 109 06/26/2017 [facility] CHEM PANEL Creatinine Lvl 0.97 mg/dL 0.50 - 1.40 06/26/2017 [facility] CHEM PANEL BUN 23 mg/dL 7 - 22 06/26/2017 [facility] CHEM PANEL Potassium Lvl 3.3 meq/L 3.5 - 5.1 06/26/2017 [facility] CHEM PANEL Calcium Lvl 8.9 mg/dL 8.5 - 10.5 06/26/2017 [facility] CHEM PANEL CO2 34 meq/L 24 - 32 06/26/2017 [facility] CHEM PANEL AGAP 10.3 meq/L 10.0 - 20.0 06/26/2017 [facility] CHEM PANEL Magnesium Lvl 2.0 mg/dL 1.8 - 2.4 06/26/2017 [facility] MPV 8.8 fL 7.4 - 10.4 06/26/2017 [facility] Platelet 304 K/CMM 133 - 450 06/26/2017 [facility] RDW 14.6 % 11.5 - 14.5 06/26/2017 [facility] MCHC 33.8 g/dL 32.0 - 36.0 06/26/2017 [facility] MCH 29.3 pg 27.0 - 31.0 06/26/2017 [facility] MCV 86.6 fL 80.0 - 98.0 06/26/2017 [facility] RBC 4.35 M/CMM 4.20 - 5.40 06/26/2017 [facility] Hct 37.7 % 36.0 - 48.0 06/26/2017 [facility] Hgb 12.7 g/dL 12.0 - 16.0 06/26/2017 [facility] WBC 7.0 K/CMM 3.7 - 10.4 06/26/2017 [facility] Monocytes # 0.7 K/CMM 0.0 - 0.8 06/26/2017 [facility] HEMATOLOGY Eosinophils # 0.4 K/CMM 0.0 - 0.5 06/26/2017 [facility] HEMATOLOGY Lymphocytes # 1.3 K/CMM 1.0 - 5.5 06/26/2017 [facility] HEMATOLOGY Segs-Bands # 4.6 K/CMM 1.5 - 8.1 06/26/2017 [facility] HEMATOLOGY Lymphocytes 18.4 % 20.0 - 40.0 06/26/2017 [facility] HEMATOLOGY Segs 64.8 % 45.0 - 75.0 06/26/2017 [facility] HEMATOLOGY Monocytes 10.0 % 2.0 - 12.0 06/26/2017 [facility] HEMATOLOGY Basophils 0.5 % 0.0 - 1.0 06/26/2017 [facility] HEMATOLOGY Eosinophils 6.3 % 0.0 - 4.0 06/26/2017 [facility] CHEM PANEL eGFR 59 mL/min/1.73m2 06/25/2017 Result Comment: The eGFR is calculated using the CKD-EPI formula. In most young, healthy individuals the eGFR will be >90 mL/min/1.73m2. The eGFR declines with age. An eGFR of 60-89 may be normal in some populations, particularly the elderly, for whom the CKD-EPI formula has not been extensively validated. Use of the eGFR is not recommended in the following populations: Individuals with unstable creatinine concentrations, including patients and those with serious co-morbid conditions. Patients with extremes in muscle mass or diet. The data above are obtained from the National Kidney Disease Education Program (NKDEP) which additionally recommends that when the eGFR is used in patients with extremes of body mass index for purposes of drug dosing, the eGFR should be multiplied by the estimated BMI. [facility] CHEM PANEL AGAP 11.6 meq/L 10.0 - 20.0 06/25/2017 [facility] CHEM PANEL Calcium Lvl 8.5 mg/dL 8.5 - 10.5 06/25/2017 [facility] CHEM PANEL CO2 34 meq/L 24 - 32 06/25/2017 [facility] CHEM PANEL Potassium Lvl 3.6 meq/L 3.5 - 5.1 06/25/2017 [facility] CHEM PANEL Chloride Lvl 101 meq/L 95 - 109 06/25/2017 [facility] CHEM PANEL Sodium Lvl 143 meq/L 135 - 145 06/25/2017 [facility] CHEM PANEL BUN 19 mg/dL 7 - 22 06/25/2017 [facility] CHEM PANEL Glucose Lvl 97 mg/dL 70 - 99 06/25/2017 [facility] CHEM PANEL Creatinine Lvl 0.90 mg/dL 0.50 - 1.40 06/25/2017 [facility] TOXICOLOGY Digoxin Lvl 0.5 ng/mL 0.8 - 2.0 06/25/2017 [facility] CHEM PANEL eGFR 65 mL/min/1.73m2 06/24/2017 Result Comment: The eGFR is calculated using the CKD-EPI formula. In most young, healthy individuals the eGFR will be >90 mL/min/1.73m2. The eGFR declines with age. An eGFR of 60-89 may be normal in some populations, particularly the elderly, for whom the CKD-EPI formula has not been extensively validated. Use of the eGFR is not recommended in the following populations: Individuals with unstable creatinine concentrations, including patients and those with serious co-morbid conditions. Patients with extremes in muscle mass or diet. The data above are obtained from the National Kidney Disease Education Program (NKDEP) which additionally recommends that when the eGFR is used in patients with extremes of body mass index for purposes of drug dosing, the eGFR should be multiplied by the estimated BMI. [facility] CHEM PANEL Sodium Lvl 140 meq/L 135 - 145 06/24/2017 [facility] CHEM PANEL Creatinine Lvl 0.83 mg/dL 0.50 - 1.40 06/24/2017 [facility] CHEM PANEL BUN 16 mg/dL 7 - 22 06/24/2017 [facility] CHEM PANEL Glucose Lvl 91 mg/dL 70 - 99 06/24/2017 [facility] CHEM PANEL Potassium Lvl 4.3 meq/L 3.5 - 5.1 06/24/2017 [facility] CHEM PANEL Calcium Lvl 8.5 mg/dL 8.5 - 10.5 06/24/2017 [facility] CHEM PANEL CO2 31 meq/L 24 - 32 06/24/2017 [facility] CHEM PANEL Chloride Lvl 105 meq/L 95 - 109 06/24/2017 [facility] CHEM PANEL AGAP 8.3 meq/L 10.0 - 20.0 06/24/2017 [facility] HEMATOLOGY Hct 35.2 % 36.0 - 48.0 06/24/2017 [facility] HEMATOLOGY WBC 7.7 K/CMM 3.7 - 10.4 06/24/2017 [facility] HEMATOLOGY RBC 3.99 M/CMM 4.20 - 5.40 06/24/2017 [facility] Hgb 11.7 g/dL 12.0 - 16.0 06/24/2017 [facility] Platelet 234 K/CMM 133 - 450 06/24/2017 [facility] MPV 8.7 fL 7.4 - 10.4 06/24/2017 [facility] MCV 88.2 fL 80.0 - 98.0 06/24/2017 [facility] MCH 29.4 pg 27.0 - 31.0 06/24/2017 [facility] MCHC 33.3 g/dL 32.0 - 36.0 06/24/2017 [facility] RDW 14.6 % 11.5 - 14.5 06/24/2017 [facility] Eosinophils # 0.5 K/CMM 0.0 - 0.5 06/24/2017 [facility] Monocytes # 0.5 K/CMM 0.0 - 0.8 06/24/2017 [facility] Segs-Bands # 5.9 K/CMM 1.5 - 8.1 06/24/2017 [facility] Lymphocytes # 0.7 K/CMM 1.0 - 5.5 06/24/2017 [facility] Basophils 0.7 % 0.0 - 1.0 06/24/2017 [facility] Eosinophils 6.7 % 0.0 - 4.0 06/24/2017 [facility] Monocytes 6.6 % 2.0 - 12.0 06/24/2017 [facility] Segs 77.0 % 45.0 - 75.0 06/24/2017 [facility] Lymphocytes 9.0 % 20.0 - 40.0 06/24/2017 [facility] Chest Pulmonary Embolism CTA Chest Pulmonary Embolism CTA Patient Name: YOLANDE ARIZMENDI : 1930; Age: 86 years y/o Female MR: [id number] Study: Chest Pulmonary Embolism CTA 06/23/2017 2:43 PM CDT Ordering Physician: Rigo Corona MD Clinical Indication: Shortness of Breath - dyspna, tachycardia, tachypnea Comparison: None TECHNIQUE: Sequential trans-axial images were obtained thru the chest and upper abdomen after administration of iodinated contrast. Coronal, sagittal and MIP reconstructions were obtained. 100 mL of Omnipaque intravenously were used for the exam. Dose: NPH=275.64 mGy-cm FINDINGS: LUNG PARENCHYMA AND PLEURA: The lungs are notable for LLL air space disease, otherwise no acute pathology. There are no pleural effusions. There is no pneumothorax. AIRWAY: The central airway is demonstrates no acute pathology. MEDIASTINUM: No significant mediastinal lymphadenopathy. Coronary artery calcifications noted. HEART: There is no evidence of RV strain. The cardiac chambers are otherwise unremarkable. There is no pericardial effusion. VASCULAR STRUCTURES: There are no filling defects appreciated to suggest PE. The great vessels are unremarkable. The thoracic aorta demonstrates no aneurysm or dissection. The superior vena cava is unremarkable. OSSEOUS STRUCTURES: There are no definite significant osseous abnormalities seen. VISUALIZED UPPER ABDOMEN: Included portions of the upper abdomen demonstrate no acute pathology. Gallstones noted, no clifton acute cholecystitis. IMPRESSION: LLL pneumonia, otherwise no PE or other acute pathology appreciated. Cholelithiasis. Follow up recommended to document resolution and exclude underlying lesion. SL: LASHONDA 06/23/2017 - - Read by: Tabatha Stafford MD Dictated Date/time: 06/23/17 22:47 Electronically Signed by: Tabatha Stafford MD 06/23/17 23:10 FINAL REPORT [facility] CARDIAC ENZYMES BNP 764 pg/mL <=100 pg/mL 06/23/2017 [facility] HEMATOLOGY D-Dimer 0.73 ug/mL FEU 06/23/2017 [facility] VIRAL - SEROLOGY Influ A Negative (06/23/17 9:40 AM) Negative 06/23/2017 [facility] VIRAL - SEROLOGY Influ B Negative (06/23/17 9:40 AM) Negative 06/23/2017 [facility] CARDIAC ENZYMES CK MB 2.4 ng/mL 0.5 - 3.6 06/23/2017 [facility] CARDIAC ENZYMES CK MB Index 1.5 0.0 - 2.5 06/23/2017 [facility] CARDIAC ENZYMES Troponin-I null 0.00 - 0.40 06/23/2017 [facility] CARDIAC ENZYMES Total CK 156 unit/L 12 - 191 06/23/2017 [facility] CHEM PANEL Lactic Acid Lvl 1.4 mMol/L 0.5 - 2.2 06/23/2017 [facility] CARDIAC ENZYMES Total CK 157 unit/L 12 - 191 06/23/2017 [facility] CARDIAC ENZYMES Troponin-I null 0.00 - 0.40 06/23/2017 [facility] CARDIAC ENZYMES CK MB Index 1.3 0.0 - 2.5 06/23/2017 [facility] CARDIAC ENZYMES CK MB 2.0 ng/mL 0.5 - 3.6 06/23/2017 [facility] CHEM PANEL Lactic Acid Lvl 2.7 mMol/L 0.5 - 2.2 06/23/2017 [facility] CHEM PANEL A/G Ratio 0.8 0.7 - 1.6 06/23/2017 [facility] CHEM PANEL Globulin 4.1 g/dL 2.7 - 4.2 06/23/2017 [facility] CHEM PANEL B/C Ratio 15 6 - 25 06/23/2017 [facility] CHEM PANEL Albumin Lvl 3.1 g/dL 3.5 - 5.0 06/23/2017 [facility] CHEM PANEL Total Protein 7.2 g/dL 6.4 - 8.4 06/23/2017 [facility] CHEM PANEL AST 17 unit/L 0 - 37 06/23/2017 [facility] CHEM PANEL Bili Total 0.9 mg/dL 0.2 - 1.3 06/23/2017 [facility] CHEM PANEL Alk Phos 46 unit/L 39 - 136 06/23/2017 [facility] CHEM PANEL ALT 19 unit/L 0 - 65 06/23/2017 [facility] HEMATOLOGY MPV 9.0 fL 7.4 - 10.4 06/23/2017 [facility] HEMATOLOGY Platelet 255 K/CMM 133 - 450 06/23/2017 [facility] HEMATOLOGY RDW 14.9 % 11.5 - 14.5 06/23/2017 [facility] MCHC 33.1 g/dL 32.0 - 36.0 06/23/2017 [facility] MCH 29.1 pg 27.0 - 31.0 06/23/2017 [facility] HEMATOLOGY MCV 87.8 fL 80.0 - 98.0 06/23/2017 [facility] HEMATOLOGY Hct 38.4 % 36.0 - 48.0 06/23/2017 [facility] HEMATOLOGY Hgb 12.7 g/dL 12.0 - 16.0 06/23/2017 [facility] HEMATOLOGY RBC 4.37 M/CMM 4.20 - 5.40 06/23/2017 [facility] HEMATOLOGY WBC 15.6 K/CMM 3.7 - 10.4 06/23/2017 [facility] HEMATOLOGY Eosinophils 0.1 % 0.0 - 4.0 06/23/2017 [facility] HEMATOLOGY Basophils 0.3 % 0.0 - 1.0 06/23/2017 [facility] HEMATOLOGY Monocytes 3.4 % 2.0 - 12.0 06/23/2017 [facility] HEMATOLOGY Segs 90.2 % 45.0 - 75.0 06/23/2017 [facility] HEMATOLOGY Lymphocytes 6.0 % 20.0 - 40.0 06/23/2017 [facility] HEMATOLOGY Monocytes # 0.5 K/CMM 0.0 - 0.8 06/23/2017 [facility] HEMATOLOGY Segs-Bands # 14.0 K/CMM 1.5 - 8.1 06/23/2017 [facility] HEMATOLOGY Lymphocytes # 0.9 K/CMM 1.0 - 5.5 06/23/2017 [facility] Chest 1view DX Chest 1view DX Chest 1view DX CLINICAL HISTORY:Pneumonia - SOB COMPARISON: None FINDINGS: Limited AP portable study. Support Lines/Devices: none Lungs: There is mild generalized prominence of the interstitium. Mild scarring is present in the upper lobes and at the lung bases. No consolidation or effusion. Cardiomediastinum: Cardiac silhouette size is mildly enlarged. Bone and Soft Tissues: No acute bony abnormality is evident. Multiple EKG leads and other wires project over the patient's chest. IMPRESSION: No acute abnormality is noted in the chest. SL: [id number] 06/23/2017 - - Read by: Rafiq Wallace MD Dictated Date/time: 06/23/17 07:02 Electronically Signed by: Rafiq Wallace MD 06/23/17 07:03 FINAL REPORT [facility] Vital Signs Vital Sign Value Date Comments Source Systolic (mm Hg) 133 06/26/2017 [facility] Diastolic (mm Hg) 75 06/26/2017 [facility] Heart Rate 83 06/26/2017 [facility] Temperature Oral (F) 97.3 F 06/26/2017 [facility] Systolic (mm Hg) 136 06/26/2017 [facility] Diastolic (mm Hg) 79 06/26/2017 [facility] Temperature Oral (F) 98.5 F 06/26/2017 [facility] Heart Rate 83 06/26/2017 [facility] Respitory Rate 16 06/26/2017 [facility] Systolic (mm Hg) 151 06/26/2017 [facility] Diastolic (mm Hg) 94 06/26/2017 [facility] Respitory Rate 17 06/26/2017 [facility] Heart Rate 81 06/26/2017 [facility] Temperature Oral (F) 97.7 F 06/26/2017 [facility] Respitory Rate 17 06/26/2017 [facility] Weight 71.591 06/23/2017 [facility] BMI Calculated 30.82 06/23/2017 [facility] Height 152.4 cm 06/23/2017 [facility] Encounters Location Location Details Encounter Type Encounter Number Reason For Visit Attending Provider ADM Date DC Date Status Source [facility] Inpatient [id number] Rigo Kratfati 06/23/2017 06/27/[address] [facility] Outpatient [id number] Abhay Dumont 07/06/2017 07/07/2017 [facility] Procedures Procedure Code Date Perfomer Comments Source Cataract surgery [id number] 02/14/2015 [facility] Hernia repair [id number] 02/14/2015 [facility] D&C - Dilatation and curettage [id number] 02/15/1952 [facility]
[2017-12-29 15:02] LABS: BASOPHILS % 0.4 % (0.0-1.0); EOSINOPHILS # (AUTO) 0.1 (0.0-0.4); EOSINOPHILS % 1.4 % (0.0-6.0); HEMATOCRIT 39.3 % (34.2-44.1); HEMOGLOBIN 12.6 g/dL (12.0-16.0); MEAN CORPUSCULAR HEMOGLOBIN 27.8 pg (28-32); MEAN CORPUSCULAR HGB CONC 32.1 g/dL (31-35); MEAN CORPUSCULAR VOLUME 86.8 fL (81-99); MONOCYTES # (AUTO) 0.8 (0.2-0.8); MONOCYTES % 7.9 % (4.4-11.3); NEUTROPHILS % 79.9 % (38.7-80.0); PLATELET COUNT 304 x10e3/uL (140-360); RED BLOOD COUNT 4.53 x10e6/uL (3.6-5.1); RED CELL DISTRIBUTION WIDTH 13.7 % (11.7-14.4)
--- NOTE | 2017-12-29 15:05 | Diagnostic Imaging Report ---
Exam: Head CT without contrast History: Altered mental status Comparison studies: Multiple prior head CTs which date to 08/10/2017, most recent head CT of 11/28/2017. Brain MRI 08/15/2017. Technique: Axial images were obtained from the skull base to the vertex. Coronal and sagittal images reconstructed from the axial data. Dose modulation, iterative reconstruction, and/or weight based adjustment of the mA/kV was utilized to reduce the radiation dose to as low as reasonably achievable. Radiation dose: Total DLP: 832 mGy*cm. Estimated effective dose: DLP x 0.015 Intravenous contrast: None Findings: Scalp: No abnormalities. Bones: No fractures, blastic or lytic lesions. Brain sulci: Mildly prominent. Ventricles: Moderate compensatory dilatation. No hydrocephalus. Extra-axial spaces: No masses, no fluid collection. Parenchyma: No mass, acute hemorrhage or acute or chronic cortical vascular insults. Confluent hypodensities in the supratentorial white matter are nonspecific but most compatible with chronic microvascular ischemic changes. Sellar/suprasellar region: No abnormalities. Craniocervical junction: Patent foramen magnum. No Chiari one malformation. Incidental findings: Bilateral lens replacements for previous scattered surgery. Atherosclerotic calcifications in the carotid siphons and in the left intradural vertebral artery. IMPRESSION: No acute abnormalities. No changes from the previous head CT of 11/28/2017. Chronic findings: 1. Mild generalized volume loss. 2. Moderate supratentorial microvascular ischemic changes. Signed by: Dr. Neftaly Watt M.D. on 12/29/2017 3:02 PM
[2017-12-29 15:07] LABS: INR 1.28; PROTHROMBIN TIME 17.1 seconds (11.9-14.5)
--- NOTE | 2017-12-29 15:11 | Diagnostic Imaging Report ---
Examination: Single AP view of the chest. COMPARISON: None. INDICATION: Altered mental status DISCUSSION: The lungs are well-inflated. No focal airspace consolidation, pleural effusion, or pneumothorax. Cardiomediastinal contour and pulmonary vasculature are notable for calcified mediastinal lymph node and atherosclerotic calcification of the thoracic aorta. No acute osseous abnormality. IMPRESSION: 1. No acute cardiopulmonary abnormalities. Signed by: Dr. Neftaly Foote M.D. on 12/29/2017 3:08 PM
[2017-12-29 15:17] LABS: ALBUMIN 3.5 g/dL (3.5-5.0); ALBUMIN/GLOBULIN RATIO 1.1 (0.8-2.0); ANION GAP 13.9 mmol/L (8-16); CALCIUM 8.9 mg/dL (8.4-10.2); CREATININE, SERUM 0.93 mg/dL (0.57-1.11)
[2017-12-29 15:18] LABS: CREATINE KINASE MB 0.8 ng/mL (0-5.0)
[2017-12-29 15:19] LABS: POTASSIUM 2.9 mmol/L (3.5-5.1)
[2017-12-29] MEDS ORDERED: POTASSIUM CHLORIDE 20 MEQ TAB CR PO STA (15:25)
[2017-12-29] MEDS ORDERED: SODIUM CHLORIDE 0.9% 1000ML 1,000 ML IV STA (15:25)
[2017-12-29] MEDS ORDERED: IBUPROFEN 200 MG TAB PO PRN (15:30)
[2017-12-29] MEDS ORDERED: ACETAMINOPHEN 325 MG TAB PO PRN (15:30)
[2017-12-29] MEDS ORDERED: ONDANSETRON HCL INJ 2 MG/ML VIAL IV PRN (15:30)
[2017-12-29] MEDS ORDERED: DIPHENHYDRAMINE HCL INJ 50 MG/ML VIAL IV PRN (15:30)
[2017-12-29] MEDS ORDERED: MORPHINE SULFATE 2 MG/ML SYR IV PRN (15:30)
[2017-12-29 17:15] LABS: BILIRUBIN,URINE NEGATIVE (NEGATIVE); CLARITY,URINE SL CLOUDY (CLEAR); COLOR,URINE YELLOW (YELLOW); KETONES,URINE NEGATIVE (NEGATIVE); LEUKOCYTE ESTERASE ,URINE NEGATIVE (NEGATIVE); NITRITE,URINE NEGATIVE (NEGATIVE); PROTEIN,URINE DIPSTICK 1+ (NEGATIVE); URINE UROBILINOGEN 0.2 mg/dL (0.2 - 1)
[2017-12-29 17:31] LABS: BACTERIA,URINE FEW /HPF; MUCUS,URINE MODERATE (RARE); RBC,URINE 0-5 /HPF (0-5)
[2017-12-29] MEDS ORDERED: POTASSIUM CHLORIDE 20MEQ/100ML 100 ML IV ONE ×3 (18:00→23:45)
[2017-12-29] MEDS ORDERED: SODIUM CHLORIDE 0.9% 500ML 500 ML ONE (18:31)
[2017-12-29] MEDS: FAMOTIDINE 20 MG/2 ML VIAL IV SCH (18:44)
[2017-12-29] MEDS: ENALAPRILAT IV INJ 1.25 MG/ML VIAL IV PRN (19:57)
[2017-12-29] MEDS ORDERED: HYDRALAZINE HCL 20 MG/ML VIAL IV STA (20:27)
[2017-12-29] MEDS: CEFTRIAXONE SOD 1 GM VIAL IV SCH (22:37)
[2017-12-29 23:00] VITALS: BP 173/94
[2017-12-29] MEDS: SODIUM CHLORIDE 0.9% 1000ML 1,000 ML IV SCH (23:30)
[2017-12-30] VITALS (9 sets, daily range): BP systolic 134–175; BP diastolic 67–95
[2017-12-30] MEDS ORDERED: ZOLOFT50 MG PO (02:25)
[2017-12-30] MEDS ORDERED: LEVOTHYROXINE75 MCG PO (02:25)
[2017-12-30] MEDS ORDERED: BENAZEPRIL HCL10 MG PO (02:25)
[2017-12-30] MEDS ORDERED: CATAPRES-TTS 11 EACH TD (02:25)
[2017-12-30] MEDS ORDERED: BIOTIN1 MG PO (02:25)
[2017-12-30] MEDS ORDERED: LORAZEPAM0.5 MG PO (02:25)
[2017-12-30] MEDS ORDERED: SINGULAIR10 MG PO (02:25)
[2017-12-30] MEDS ORDERED: DONEPEZIL HCL10 MG PO (02:25)
[2017-12-30] MEDS ORDERED: METOPROLOL TART25 MG PO (02:25)
[2017-12-30] MEDS ORDERED: HYDROCHLOROTHIA25 MG PO (02:25)
[2017-12-30] MEDS ORDERED: ACETAMINOPHEN325 M1 PO (02:25)
[2017-12-30 02:30] LABS: CREATINE KINASE MB 0.9 ng/mL (0-5.0)
[2017-12-30 06:00] LABS: BASOPHILS % 0.4 % (0.0-1.0); EOSINOPHILS # (AUTO) 0.1 (0.0-0.4); EOSINOPHILS % 1.1 % (0.0-6.0); HEMATOCRIT 34.9 % (34.2-44.1); LYMPHOCYTES # (AUTO) 1.1 (1.0-3.2); LYMPHOCYTES % 15.2 % (18.0-39.1); MEAN CORPUSCULAR HEMOGLOBIN 26.9 pg (28-32); MEAN CORPUSCULAR HGB CONC 31.5 g/dL (31-35); MEAN CORPUSCULAR VOLUME 85.3 fL (81-99); MONOCYTES # (AUTO) 0.6 (0.2-0.8); MONOCYTES % 7.6 % (4.4-11.3); NEUTROPHILS # (AUTO) 5.4 (2.1-6.9); NEUTROPHILS % 75.3 % (38.7-80.0); PLATELET COUNT 246 x10e3/uL (140-360); RED BLOOD COUNT 4.09 x10e6/uL (3.6-5.1); RED CELL DISTRIBUTION WIDTH 13.7 % (11.7-14.4)
[2017-12-30 06:25] LABS: ALANINE AMINOTRANSFERASE 11 IU/L (0-55); ALBUMIN/GLOBULIN RATIO 1.1 (0.8-2.0); ALKALINE PHOSPHATASE 57 IU/L (40-150); ANION GAP 13.4 mmol/L (8-16); BLOOD UREA NITROGEN 14 mg/dL (7-26); BUN/CREATININE RATIO 18 (6-25); CALCIUM 7.9 mg/dL (8.4-10.2); CARBON DIOXIDE 27 mmol/L (22-29); CHLORIDE 103 mmol/L (98-107); CREATININE, SERUM 0.76 mg/dL (0.57-1.11); EST GLOMERULAR FILTRATION RATE > 60 ML/MIN (60-); GLUCOSE 84 mg/dL (74-118); MAGNESIUM 1.5 MG/DL (1.3-2.1); PHOSPHORUS 3.6 MG/DL (2.3-4.7); POTASSIUM 3.4 mmol/L (3.5-5.1); SODIUM 140 mmol/L (136-145)
[2017-12-30 07:20] LABS: CREATINE KINASE MB 0.9 ng/mL (0-5.0)
[2017-12-30] MEDS: FAMOTIDINE 20 MG/2 ML VIAL IV SCH ×2 (09:06→16:49)
[2017-12-30] MEDS: CEFTRIAXONE SOD 1 GM VIAL IV SCH ×2 (09:06→21:57)
[2017-12-30] MEDS ORDERED: ACETAMINOPHEN 325 MG TAB PO PRN (10:30)
[2017-12-30] MEDS ORDERED: LORAZEPAM 0.5 MG TAB PO PRN (10:30)
--- NOTE | 2017-12-30 11:28 | History and Physical ---
This 87-year-old female patient of mine presented to the emergency room with altered mental status. HISTORY OF PRESENT ILLNESS: Ms. Mary Callahan is an 87-year-old female patient with a history of dementia, AFib, CHF secondary to diastolic dysfunction and AFib, hypertensive heart disease, GERD, depression, and frequent falls. She was living at assisted living. The patient was found to be more confused. The patient was having trouble staying awake and while eating. She was falling asleep. The patient had urinary frequency and incontinence. The patient also had watery diarrhea on a couple of occasions. REVIEW OF SYSTEMS: As per history of present illness. The patient is not able to give much detailed history, but the patient was having generalized weakness and poor appetite. PAST SURGICAL HISTORY: and hernia repair. PAST MEDICAL HISTORY: AFib, hypertensive heart disease, diastolic CHF, hyperlipidemia, thyroid disease, dementia. ALLERGIES: THE PATIENT IS ALLERGIC TO LATEX. SOCIAL HISTORY: Denies using alcohol or smoking. The patient used to drink 10 years ago. FAMILY HISTORY: Hypertension. PHYSICAL EXAMINATION GENERAL: She is an elderly, female patient lying in bed, not in acute distress. VITAL SIGNS: Temperature 98, pulse rate 88, respirations 16, blood pressure 110/70. HEENT: Normocephalic, atraumatic. NECK: No JVD. No lymphadenopathy. LUNGS: Bilateral equal air entry. No rales. No rhonchi. HEART: S1 and S2, regular. No murmur or gallop. ABDOMEN: Soft. Bowel sounds are present. NEUROLOGIC: The patient is alert but not oriented completely. ADMITTING IMPRESSION AND DIAGNOSES 1. Altered mental status, likely from metabolic encephalopathy. CT scan was negative for any acute stroke. 2. The patient has cloudy urine with some blood, possible urinary tract infection. 3. The patient also has diarrhea, hypokalemia, dehydration. 4. Protein-calorie malnutrition, acute on chronic, with hypoalbuminemia. PLAN: The patient will be admitted with the above diagnoses. We will treat the patient with IV antibiotic Rocephin and IV fluids. We will do calorie count and dietary evaluation, physical therapy and occupational therapy evaluation. Will obtain stool culture as the patient had diarrhea prior to the admission. The patient is coming from the long-term care institution. EMELIA BECKFORD MD Job#: [id number]
[2017-12-30] MEDS ORDERED: POTASSIUM CHLORIDE 20 MEQ TAB CR PO NR (14:45)
[2017-12-30 14:56] LABS: CREATINE KINASE MB 0.9 ng/mL (0-5.0)
[2017-12-30] MEDS: METOPROLOL TARTRATE 25 MG TAB PO SCH ×2 (15:00→21:20)
[2017-12-30] MEDS: SODIUM CHLORIDE 0.9% 1000ML 1,000 ML IV SCH ×2 (15:45→21:16)
[2017-12-30] MEDS ORDERED: POTASSIUM CHLORIDE 20MEQ/100ML 100 ML IV ONE (16:30)
[2017-12-30] MEDS ORDERED: LORAZEPAM INJ 2 MG/ML VIAL IV PRN (16:30)
[2017-12-30] MEDS: AZELASTINE HCL(OPTH) 6 ML BOTTLE OP SCH (16:49)
[2017-12-30] MEDS: ENALAPRILAT IV INJ 1.25 MG/ML VIAL IV PRN (16:54)
[2017-12-30] MEDS: LATANOPROST(OPTH) 2.5 ML BTL OP SCH (21:00)
[2017-12-31] VITALS (8 sets, daily range): BP systolic 167–195; BP diastolic 75–100
[2017-12-31] MEDS: ENALAPRILAT IV INJ 1.25 MG/ML VIAL IV PRN ×2 (01:51→16:58)
[2017-12-31] MEDS: CLONIDINE HCL 0.1 MG TAB PO PRN ×2 (05:30→15:26)
[2017-12-31 06:08] LABS: BASOPHILS % 0.5 % (0.0-1.0); EOSINOPHILS # (AUTO) 0.2 (0.0-0.4); EOSINOPHILS % 1.9 % (0.0-6.0); HEMOGLOBIN 11.1 g/dL (12.0-16.0); LYMPHOCYTES % 12.4 % (18.0-39.1); MEAN CORPUSCULAR HEMOGLOBIN 27.3 pg (28-32); MEAN CORPUSCULAR HGB CONC 31.7 g/dL (31-35); MONOCYTES # (AUTO) 0.7 (0.2-0.8); MONOCYTES % 8.2 % (4.4-11.3); NEUTROPHILS # (AUTO) 6.4 (2.1-6.9); NEUTROPHILS % 76.8 % (38.7-80.0); PLATELET COUNT 243 x10e3/uL (140-360); RED BLOOD COUNT 4.07 x10e6/uL (3.6-5.1)
[2017-12-31] MEDS: LEVOTHYROXINE SODIUM 75 MCG TAB PO SCH (06:25)
[2017-12-31 06:28] LABS: ALANINE AMINOTRANSFERASE 12 IU/L (0-55); ALBUMIN 2.9 g/dL (3.5-5.0); ALBUMIN/GLOBULIN RATIO 1.1 (0.8-2.0); ALKALINE PHOSPHATASE 52 IU/L (40-150); ANION GAP 13.1 mmol/L (8-16); BLOOD UREA NITROGEN 12 mg/dL (7-26); BUN/CREATININE RATIO 16 (6-25); CALCIUM 7.9 mg/dL (8.4-10.2); CARBON DIOXIDE 24 mmol/L (22-29); CHLORIDE 106 mmol/L (98-107); CREATININE, SERUM 0.75 mg/dL (0.57-1.11); EST GLOMERULAR FILTRATION RATE > 60 ML/MIN (60-); GLUCOSE 92 mg/dL (74-118); POTASSIUM 3.1 mmol/L (3.5-5.1); SODIUM 140 mmol/L (136-145)
[2017-12-31 06:32] LABS: CLARITY,URINE HAZY (CLEAR); COLOR,URINE YELLOW (YELLOW); KETONES,URINE NEGATIVE (NEGATIVE); LEUKOCYTE ESTERASE ,URINE NEGATIVE (NEGATIVE); NITRITE,URINE NEGATIVE (NEGATIVE); PROTEIN,URINE DIPSTICK TRACE (NEGATIVE); URINE UROBILINOGEN 0.2 mg/dL (0.2 - 1)
[2017-12-31 06:33] LABS: BILIRUBIN,URINE NEGATIVE (NEGATIVE)
[2017-12-31 06:44] LABS: BACTERIA,URINE FEW /HPF; EPITHELIAL CELLS,URINE FEW /LPF; WBC,URINE (MAN) 0-5 /HPF (0-5)
[2017-12-31] MEDS ORDERED: POTASSIUM CHLORIDE 20 MEQ TAB CR PO STA (07:34)
[2017-12-31] MEDS ORDERED: LEVOTHYROXINE SODIUM 75 MCG TAB PO SCH (09:00)
[2017-12-31] MEDS: BENAZEPRIL HCL 10 MG TAB PO SCH (09:31)
[2017-12-31] MEDS: FAMOTIDINE 20 MG/2 ML VIAL IV SCH ×2 (09:31→17:16)
[2017-12-31] MEDS: SERTRALINE HCL 50 MG TAB PO SCH (09:31)
[2017-12-31] MEDS: CEFTRIAXONE SOD 1 GM VIAL IV SCH ×2 (09:31→21:21)
[2017-12-31] MEDS: PANTOPRAZOLE SOD 40 MG TABEC PO SCH (09:31)
[2017-12-31] MEDS: AZELASTINE HCL(OPTH) 6 ML BOTTLE OP SCH ×2 (09:31→17:16)
[2017-12-31] MEDS: METOPROLOL TARTRATE 25 MG TAB PO SCH ×3 (09:31→21:23)
[2017-12-31] MEDS: MONTELUKAST SODIUM 10 MG TAB PO SCH (09:31)
[2017-12-31] MEDS: SODIUM CHLORIDE 0.9% 1000ML 1,000 ML IV SCH ×3 (10:36→23:56)
[2017-12-31 11:03] LABS: WBC,FECAL (FECAL LACTOFERRIN) POSITIVE (NEGATIVE)
[2017-12-31 13:54] LABS: C DIFFICILE TOXIN A&B AMP PROB NEGATIVE (NEGATIVE)
[2017-12-31] MEDS: LATANOPROST(OPTH) 2.5 ML BTL OP SCH (21:21)
[2017-12-31] MEDS ORDERED: CLONIDINE HCL 0.1 MG TAB PO STA (22:05)
[2017-12-31] MEDS: HYDRALAZINE HCL 20 MG/ML VIAL IV PRN (22:59)
[2018-01-01] VITALS (8 sets, daily range): BP systolic 130–188; BP diastolic 64–100
[2018-01-01] MEDS: LEVOTHYROXINE SODIUM 75 MCG TAB PO SCH (05:01)
[2018-01-01] MEDS: HYDRALAZINE HCL 20 MG/ML VIAL IV PRN ×3 (05:02→22:00)
[2018-01-01 05:22] LABS: ANION GAP 14.5 mmol/L (8-16); BLOOD UREA NITROGEN 10 mg/dL (7-26); BUN/CREATININE RATIO 13 (6-25); CARBON DIOXIDE 23 mmol/L (22-29); CHLORIDE 107 mmol/L (98-107); CREATININE, SERUM 0.76 mg/dL (0.57-1.11); EST GLOMERULAR FILTRATION RATE > 60 ML/MIN (60-); GLUCOSE 96 mg/dL (74-118); MAGNESIUM 1.5 MG/DL (1.3-2.1); POTASSIUM 3.5 mmol/L (3.5-5.1); SODIUM 141 mmol/L (136-145)
[2018-01-01] MEDS ORDERED: POTASSIUM CHLORIDE 20 MEQ TAB CR PO NR (08:00)
[2018-01-01] MEDS: METOPROLOL TARTRATE 25 MG TAB PO SCH ×3 (09:00→21:00)
[2018-01-01] MEDS: SERTRALINE HCL 50 MG TAB PO SCH (09:00)
[2018-01-01] MEDS: MONTELUKAST SODIUM 10 MG TAB PO SCH (09:00)
[2018-01-01] MEDS: PANTOPRAZOLE SOD 40 MG TABEC PO SCH (09:00)
[2018-01-01] MEDS: BENAZEPRIL HCL 10 MG TAB PO SCH (09:00)
[2018-01-01] MEDS: AZELASTINE HCL(OPTH) 6 ML BOTTLE OP SCH ×2 (09:00→16:39)
[2018-01-01] MEDS: FAMOTIDINE 20 MG/2 ML VIAL IV SCH ×2 (09:14→16:29)
[2018-01-01] MEDS: CEFTRIAXONE SOD 1 GM VIAL IV SCH ×2 (09:14→21:59)
--- NOTE | 2018-01-01 11:02 | Consultation ---
DATE OF CONSULTATION: December 31, 2017 REASON FOR CONSULTATION: Elevated high blood pressure. CONSULTING PHYSICIAN: Dr. Kadi Collazo. HPI: This is a pleasant 87-year-old female, resident of assisted living that presented with altered mental status. According to medical record and bedside nurse, she was found with altered mental status, confused with decreased alertness and she was brought over here for evaluation. She has a history of AFib, was anticoagulated with Eliquis. She was also admitted in July 2017 with the same symptoms of altered mental status. She had a carotid Doppler that showed carotid disease with no significant stenosis. She denied any chest pain, any palpitation, any shortness of breath, or diaphoresis. She had chest x-ray done that showed no acute cardiopulmonary abnormalities and also CT of the brain showed mild generalized volume loss and moderate supratentorial microvascular ischemic changes. Troponin x3 was negative. She was also found with diarrhea and low potassium that has been replaced. PAST MEDICAL HISTORY: Multiple falls, UTI, altered mental status, dementia, hypothyroidism, AFib, hypertension, GERD, hyperlipidemia, and pneumonia. PAST SURGICAL HISTORY: Hernia repair, bilateral cataract surgery, and . FAMILY HISTORY: Positive for hypertension. SOCIAL HISTORY: No smoking, no drinking. She lives at assisted living. MEDICATIONS: See med list. ALLERGIES: SHE IS ALLERGIC TO LATEX. REVIEW OF SYSTEMS: Negative except those mentioned above. PHYSICAL EXAMINATION VITAL SIGNS: Temperature 98, heart rate 92, blood pressure 144/60, respirations 20, oxygen saturation 97% on room air. GENERAL: She is awake, but lethargic. HEENT: Mucous membrane dry. NECK: Supple. LUNGS: Bilateral clear to auscultation. CARDIOVASCULAR: Irregularly irregular. ABDOMEN: Soft. NEUROLOGIC: She is able to move all extremities bilaterally. Lower extremities with no edema. LABS: Sodium 141, potassium 3.5, chloride 107, CO2 of 23, BUN 10, creatinine 0.76, glucose 96. White blood cell 8.34, hemoglobin 11.1, hematocrit 35.0, platelet 243. PT 17.1, PTT 29.9, INR 1.28. IMPRESSION 1. Hypertension. 2. Altered mental status with dementia. 3. Atrial fibrillation. 4. Diarrhea with hypokalemia. ASSESSMENT AND PLAN 1. She had an echocardiogram done in July 2017 that showed normal systolic function, ejection fraction 55-60%. 1. She also had a bilateral carotid Doppler that showed some carotid disease without significant carotid stenosis. She is on multiple blood pressure medication. We will continue the same and do some adjustments. Her heart rate is controlled and she has been on Eliquis. 2. She may have possible urinary tract infection. She is pending urinalysis, culture and sensitivity. Potassium has been replaced. Further cardiac workup pending clinical course. Thank you for this consultation. Dictated by: Flavio Martinez NP Job#: [id number] JULES
[2018-01-01] MEDS ORDERED: METOPROLOL TARTRATE INJ 1 MG/ML VIAL IV NR (12:30)
[2018-01-01] MEDS ORDERED: POTASSIUM CHLORIDE 20MEQ/100ML 100 ML IV ONE (12:45)
--- NOTE | 2018-01-01 14:39 | Consultation ---
NEUROLOGY CONSULT NOTE DATE OF CONSULTATION: January 01, 2018 HISTORY OF PRESENT ILLNESS: Ms. Callahan is encephalopathic and is unable to provide any medical history. There are no family members available at the bedside at present. History is obtained from review of the electronic medical records. Ms. Callahan presented to the emergency center at [facility] on December 29, 2017 with a 2 to 3 day history of worsening of baseline confusion, decreased level of alertness, decreased oral intake, urinary frequency and incontinence, watery diarrhea, and generalized weakness. Upon arrival in the emergency room, the patient was afebrile with blood pressure of 156/94 mmHg and a pulse of 77 beats per minute. Ms. Callahan's neurological examination was significant for a decreased level of alertness. The patient did not answer questions and did not follow commands. Routine laboratory data showed the patient to be hypokalemic with a potassium of 2.9 and mildly dehydrated. A CT of the brain without contrast did not show evidence of recent large territorial ischemia or hemorrhage. Ms. Callahan was admitted to [facility] on December 29, 2017, for further evaluation and treatment of encephalopathy as well as hypokalemia. Over the past 2 days, the patient's potassium has been repleted. A urine culture collected on December 29, 2017 revealed no growth at 36 to 48 hours. Blood cultures collected on December 29, 2017 have shown no growth after 48 hours. Stool studies were negative for C. difficile toxin A and B x1. However, stool lactoferrin was positive. Stool cultures are pending. At present, Ms. Callahan is receiving intravenous ceftriaxone for an as yet undetermined infection. In addition to Rocephin, the patient has orders for both morphine sulfate and lorazepam. At present, the patient has not received a dose of lorazepam. Her last dose of morphine sulfate was December 31, 2017 at 2123. REVIEW OF SYSTEMS: Unable to obtain as the patient is encephalopathic. PAST MEDICAL HISTORY: Hypertension, hyperlipidemia, diastolic congestive heart failure, atrial fibrillation, thyroid disease, multiple urinary tract infections, gastroesophageal reflux disease, depression, dementia, type unknown, frequent falls, and pneumonia. PAST SURGICAL HISTORY: section, hernia repair. PAST HOSPITALIZATIONS: Surgeries/procedures as listed, hospitalized at [facility] in July of 2017 for encephalopathy, other hospitalizations are unknown. FAMILY MEDICAL HISTORY: The only documented family medical history is for hypertension. SOCIAL HISTORY: Ms. Callahan is . She resides in an assisted living facility. The patient is retired. There is no reported current or prior tobacco or recreational drug use. The patient does have prior history of alcohol use with last use being approximately 10 years ago. HOME MEDICATIONS: Acetaminophen 325 mg by mouth every 4 hours as needed for pain, azelastine 1 drop OU twice a day, benazepril 40 mg by mouth daily, biotin 1 mg by mouth daily, clonidine, donepezil 10 mg by mouth at bedtime daily, Nexium 40 mg by mouth daily, hydrochlorothiazide 25 mg by mouth daily, latanoprost 2.5 mL OP q.h.s., levothyroxine 75 mcg by mouth daily, lorazepam 0.5 mg by mouth every 6 hours as needed, metoprolol 25 mg by mouth 3 times daily, Myrbetriq 50 mg by mouth at bedtime daily, Singulair 10 mg by mouth daily, multivitamin 1 tablet by mouth daily, Zoloft 100 mg by mouth daily, Eliquis 5 mg by mouth twice daily, calcium, magnesium, and zinc. HOSPITAL MEDICATIONS: Acetaminophen, azelastine, benazepril, ceftriaxone, diphenhydramine, enalapril, famotidine, hydralazine, ibuprofen, latanoprost, levothyroxine, lorazepam, metoprolol, montelukast, morphine, ondansetron, pantoprazole, and sertraline. ALLERGIES: NO KNOWN DRUG ALLERGIES. NO KNOWN FOOD ALLERGIES. THE PATIENT DOES HAVE A DOCUMENTED ALLERGY TO LATEX. NO KNOWN ALLERGIES TO IODINE OR OTHER CONTRAST MATERIALS. PHYSICAL EXAMINATION VITAL SIGNS: Height 63 inches, weight 141 pounds, BMI 25.1 kg per meter squared. Blood pressure 144/80 mmHg, pulse 98 beats per minute, respiratory rate 18 breaths per minute, oxygen saturation 94% on room air. GENERAL: The patient is awake and alert, does not appear distressed. HEENT: Normocephalic, atraumatic. Pupils are equal, round, and reactive to light. Moist mucous membranes. NECK: Supple. No appreciable thyromegaly. No appreciable carotid bruits. CARDIOVASCULAR: S1 and S2, regular rate, but irregular rhythm. No murmurs, rubs, or gallops. RESPIRATORY: Clear to auscultation bilaterally. No wheezes, rhonchi, or rales. EXTREMITIES: The skin is warm and dry. No clubbing, cyanosis, or edema. The posterior tibial and dorsalis pedis pulses are 2+ and symmetric. SKIN: No rashes or lesions. NEUROLOGIC Memory/Attention: The patient is awake and alert, encephalopathic. Cranial Nerves: Cranial nerve I- not tested. Cranial nerve II, III, IV, and - pupils are equal and round, react briskly to light (from 4 mm to 2 mm). Cranial nerve V - sensation to light touch is grossly intact in the bilateral V1 through V3 distributions. Cranial nerve VII - the face is symmetric as are all facial movements. Cranial nerve VIII - hearing is grossly intact to voice bilaterally. Strength: Bulk is mildly diminished throughout. Ms. Callahan was just having her arms and legs moved. Once moved, the patient maintains posture. Tone appears to be normal, but the assessment is limited by the patient maintaining postures. DTRs: Deep tendon reflexes are 1+ and symmetric at the triceps, biceps, brachioradialis, and patellas. Deep tendon reflexes are absent and symmetric at the Achilles. Plantar responses are flexor bilaterally. Sensation: Ms. Callahan withdraws all extremities to peripheral noxious stimulation. Cerebellar: Unable to assess secondary to encephalopathy. Gait: Unable to assess secondary to encephalopathy. Speech: No verbalization. Involuntary Movements: There is a high-frequency, low-amplitude tremor affecting both hands and arms, left greater than right, as well as the mouth. Pronator Drift: None. LABORATORY DATA: The most recent basic metabolic panel is significant for mild hypocalcemia with a calcium of 8.0. Previously ordered hepatic function panels have been unremarkable. Cardiac enzymes are negative x4. Lactic acid 10.3. The CBC with differential and platelets reveals a white blood cell count of 8.34 with 76.8% neutrophils, 12.4% lymphocytes, 8.2% monocytes, 1.9% eosinophils, and 0.5% basophils. PT on December 29, 2017 was 17.1. INR and PTT on December 29, 2017 were within normal limits. A urinalysis collected on December 31, 2017 reveals trace protein, 1+ blood, and 11 to 20 red blood cells. C. difficile toxin A and B is negative x1. Stool lactoferrin is positive on December 31, 2017. Blood cultures collected on December 29, 2017 showed no growth at 48 hours. A urine culture collected on December 29, 2017 showed no growth at 36 to 48 hours. A stool culture is pending. DIAGNOSTIC STUDIES 1. Echocardiogram on August 11, 2017: Ejection fraction 55% to 60%. Mildly enlarged right atrium. Mild mitral and tricuspid regurgitation. 2. Bilateral carotid artery ultrasound with Doppler on August 11, 2017: There is atherosclerosis without hemodynamically significant stenosis at the bilateral carotid bulbs, carotid bifurcations, and external carotid arteries. Flow is antegrade in the bilateral vertebral arteries. 3. Electrocardiogram on December 30, 2017: Atrial fibrillation. Rate controlled at 86 beats per minute. 4. Chest x-ray on December 29, 2017: No acute cardiopulmonary abnormalities. 5. CT of the brain without contrast on December 29, 2017: On my review, there is no evidence of recent large territorial ischemia, hemorrhage, mass, or mass effect. There is diffuse cerebral atrophy, more than expected for age, with compensatory dilatation of the ventricles. There are findings compatible with [id number] chronic small vessel ischemic disease. ASSESSMENT AND PLAN: Ms. Callahan is an 87-year-old woman with an extensive past medical history, including baseline dementia, type unknown, admitted to [facility] on December 29, 2017 with a 2 to 3 day history of worsening of baseline confusion, decreased level of alertness, decreased oral intake, urinary frequency and incontinence, watery diarrhea, and generalized weakness. On neurological examination, the patient is encephalopathic. Other findings of from the patient's neurological examination are detailed above. Ms. Callahan's laboratory data and other diagnostic studies have been reviewed and are documented above. In my opinion, Ms. Callahan probably has a metabolic encephalopathy. In addition to baseline dementia, dehydration, possible infection, treatment with sedative/hypnotic and pain medications, and delirium are the factors resulting in metabolic encephalopathy. RECOMMENDATIONS: Recommendation for further evaluation are as follows; 1. Ms. Callahan is afebrile. She does not have an elevated white blood cell count. There is no evidence of meningismus on general physical and neurological examinations. Therefore, a lumbar puncture will be deferred at present as the suspicion for meningitis is low. 2. Additional laboratory data will be ordered as follows: Thyroid function panel, ammonia level, vitamin B1 level, vitamin B12 level, RPR. 3. The results of pending cultures should be followed. 4. A routine EEG will be ordered to evaluate for metabolic encephalopathy as well as any seizure activity. 5. Limit the use of sedative/hypnotic and pain medications as these will alter the patient's sensorium. To this end, morphine and lorazepam will be removed from the patient's MAR. 6. Utilize environmental cues to combat delirium. 7. Treatment with the patient's home medication of donepezil 10 mg by mouth at bedtime daily will be resumed once access for administration of oral medications is established. 8. Defer treatment of the remaining medical comorbidities to the primary and other services following the patient. Thank you for this consultation. I will continue to follow the patient while she remains in the hospital. Job#: [id number] YAEL DILL
[2018-01-01 15:09] LABS: FREE THYROXINE INDEX 2.1723 (1.4-3.8); THYROID STIMULATING HORMONE 2.512 uIU/mL (0.350-4.940)
[2018-01-01] MEDS: METOPROLOL TARTRATE INJ 1 MG/ML VIAL IV PRN ×2 (16:29→22:01)
[2018-01-01] MEDS: SODIUM CHLORIDE 0.9% 1000ML 1,000 ML IV SCH (16:33)
[2018-01-01] MEDS: LATANOPROST(OPTH) 2.5 ML BTL OP SCH (21:59)
[2018-01-02 00:16] VITALS: BP 177/98
[2018-01-02 05:41] LABS: BASOPHILS # (AUTO) 0.1 (0.0-0.1); BASOPHILS % 0.6 % (0.0-1.0); EOSINOPHILS # (AUTO) 0.1 (0.0-0.4); EOSINOPHILS % 1.2 % (0.0-6.0); HEMATOCRIT 36.1 % (34.2-44.1); HEMOGLOBIN 11.6 g/dL (12.0-16.0); LYMPHOCYTES % 10.7 % (18.0-39.1); MEAN CORPUSCULAR HEMOGLOBIN 27.8 pg (28-32); MEAN CORPUSCULAR HGB CONC 32.1 g/dL (31-35); MEAN CORPUSCULAR VOLUME 86.4 fL (81-99); MONOCYTES # (AUTO) 0.8 (0.2-0.8); MONOCYTES % 8.5 % (4.4-11.3); NEUTROPHILS # (AUTO) 7.1 (2.1-6.9); NEUTROPHILS % 78.6 % (38.7-80.0); PLATELET COUNT 268 x10e3/uL (140-360); RED BLOOD COUNT 4.18 x10e6/uL (3.6-5.1); RED CELL DISTRIBUTION WIDTH 14.4 % (11.7-14.4)
[2018-01-02] MEDS: LEVOTHYROXINE SODIUM 75 MCG TAB PO SCH ×2 (05:44→21:57)
[2018-01-02 05:51] VITALS: BP 149/85
[2018-01-02 06:17] LABS: ALANINE AMINOTRANSFERASE 13 IU/L (0-55); ALBUMIN 2.8 g/dL (3.5-5.0); ALBUMIN/GLOBULIN RATIO 0.8 (0.8-2.0); ALKALINE PHOSPHATASE 55 IU/L (40-150); ANION GAP 14.5 mmol/L (8-16); BLOOD UREA NITROGEN 12 mg/dL (7-26); BUN/CREATININE RATIO 14 (6-25); CALCIUM 8.9 mg/dL (8.4-10.2); CARBON DIOXIDE 21 mmol/L (22-29); CHLORIDE 109 mmol/L (98-107); CREATININE, SERUM 0.85 mg/dL (0.57-1.11); EST GLOMERULAR FILTRATION RATE > 60 ML/MIN (60-); GLUCOSE 87 mg/dL (74-118); POTASSIUM 3.5 mmol/L (3.5-5.1); SODIUM 141 mmol/L (136-145)
[2018-01-02 08:00] VITALS: BP 168/84
[2018-01-02] MEDS: PANTOPRAZOLE SOD 40 MG TABEC PO SCH (09:00)
[2018-01-02] MEDS: SERTRALINE HCL 50 MG TAB PO SCH (09:00)
[2018-01-02] MEDS: BENAZEPRIL HCL 10 MG TAB PO SCH (09:00)
[2018-01-02] MEDS: AZELASTINE HCL(OPTH) 6 ML BOTTLE OP SCH ×2 (09:00→17:00)
[2018-01-02] MEDS: CEFTRIAXONE SOD 1 GM VIAL IV SCH ×2 (09:00→21:00)
[2018-01-02] MEDS: MONTELUKAST SODIUM 10 MG TAB PO SCH (09:00)
[2018-01-02] MEDS: METOPROLOL TARTRATE 25 MG TAB PO SCH ×3 (09:00→21:00)
[2018-01-02] MEDS: FAMOTIDINE 20 MG/2 ML VIAL IV SCH ×2 (09:00→17:00)
[2018-01-02] MEDS: KCL 20MEQ/.9 SOD CHL 1,000 ML IV SCH ×2 (11:00→23:50)
[2018-01-02 12:00] VITALS: BP 175/85
[2018-01-02] MEDS: HYDRALAZINE HCL 20 MG/ML VIAL IV PRN ×2 (12:14→18:47)
[2018-01-02] MEDS: METOPROLOL TARTRATE INJ 1 MG/ML VIAL IV PRN ×2 (16:09→22:40)
[2018-01-02] MEDS: DRONABINOL 2.5MG PO SCH (16:30)
[2018-01-02 20:00] VITALS: BP 141/79
[2018-01-02] MEDS: LATANOPROST(OPTH) 2.5 ML BTL OP SCH (21:00)
[2018-01-03] VITALS (7 sets, daily range): BP systolic 129–190; BP diastolic 77–100
[2018-01-03 05:37] LABS: BASOPHILS % 0.4 % (0.0-1.0); EOSINOPHILS # (AUTO) 0.1 (0.0-0.4); EOSINOPHILS % 1.8 % (0.0-6.0); HEMATOCRIT 34.9 % (34.2-44.1); HEMOGLOBIN 10.9 g/dL (12.0-16.0); LYMPHOCYTES # (AUTO) 1.1 (1.0-3.2); LYMPHOCYTES % 14.3 % (18.0-39.1); MEAN CORPUSCULAR HEMOGLOBIN 27.2 pg (28-32); MEAN CORPUSCULAR HGB CONC 31.2 g/dL (31-35); MONOCYTES # (AUTO) 0.7 (0.2-0.8); MONOCYTES % 9.9 % (4.4-11.3); NEUTROPHILS # (AUTO) 5.4 (2.1-6.9); NEUTROPHILS % 73.3 % (38.7-80.0); PLATELET COUNT 233 x10e3/uL (140-360); RED BLOOD COUNT 4.01 x10e6/uL (3.6-5.1); RED CELL DISTRIBUTION WIDTH 14.6 % (11.7-14.4)
[2018-01-03 06:01] LABS: ALANINE AMINOTRANSFERASE 10 IU/L (0-55); ALBUMIN 2.6 g/dL (3.5-5.0); ALBUMIN/GLOBULIN RATIO 0.8 (0.8-2.0); ALKALINE PHOSPHATASE 52 IU/L (40-150); ANION GAP 14.3 mmol/L (8-16); BLOOD UREA NITROGEN 14 mg/dL (7-26); BUN/CREATININE RATIO 18 (6-25); CALCIUM 8.5 mg/dL (8.4-10.2); CARBON DIOXIDE 21 mmol/L (22-29); CHLORIDE 108 mmol/L (98-107); EST GLOMERULAR FILTRATION RATE > 60 ML/MIN (60-); GLUCOSE 67 mg/dL (74-118); POTASSIUM 3.3 mmol/L (3.5-5.1); SODIUM 140 mmol/L (136-145)
[2018-01-03] MEDS: DRONABINOL 2.5MG PO SCH ×2 (08:45→16:30)
[2018-01-03] MEDS: METOPROLOL TARTRATE 25 MG TAB PO SCH ×2 (09:00→15:00)
[2018-01-03] MEDS: SERTRALINE HCL 50 MG TAB PO SCH (09:00)
[2018-01-03] MEDS: FAMOTIDINE 20 MG/2 ML VIAL IV SCH ×2 (09:00→17:00)
[2018-01-03] MEDS: AZELASTINE HCL(OPTH) 6 ML BOTTLE OP SCH ×2 (09:00→17:00)
[2018-01-03] MEDS: PANTOPRAZOLE SOD 40 MG TABEC PO SCH (09:00)
[2018-01-03] MEDS: CEFTRIAXONE SOD 1 GM VIAL IV SCH (09:00)
[2018-01-03] MEDS: MONTELUKAST SODIUM 10 MG TAB PO SCH (09:00)
[2018-01-03] MEDS: BENAZEPRIL HCL 10 MG TAB PO SCH (09:00)
[2018-01-03] MEDS: KCL 20MEQ/.9 SOD CHL 1,000 ML IV SCH ×2 (12:19→17:00)
[2018-01-03] MEDS: HYDRALAZINE HCL 20 MG/ML VIAL IV PRN ×2 (15:58→20:20)
--- NOTE | 2018-01-03 19:24 | Electroencephalogram ---
DATE OF STUDY: January 03, 2018 PROCEDURE: Electroencephalogram. REQUESTING PHYSICIAN: Dr. Park Pickett PATIENT HISTORY: This 87-year-old woman with a history of encephalopathy, is having an EEG for evaluation of epileptiform activity. The patient is not taking any medications that might affect the EEG. TECHNIQUE: This is a routine, portable EEG, recorded digitally, using the international 10/20 electrode placement system, and done in the inpatient setting with the patient awake and confused. The EEG is technically limited because of muscle and electrical artifact. DESCRIPTION: Well-organized, well-sustained 6 to 7 Hz activity is best seen symmetrically over the posterior head regions. No focal or epileptiform activity is recorded. Sleep is not recorded. Photic stimulation produces a driving response. Hyperventilation is not performed. INTERPRETATION: This electroencephalogram is abnormal with the patient awake and confused due to diffuse slowing of background electrocortical activity compatible with mild generalized encephalopathy. No epileptiform discharges are seen. Clinical correlation is recommended. Job#: [id number] DR DILL
== END 2018-01-03 20:25 | DRG 689 ==
LOC: ER 14:05 → ERHOLD 18:43 → MED/SURG3 22:51
PROVIDERS: ADMIT Internal Medicine; ATTEND Internal Medicine
DX: N39.0 Urinary tract infection, site not specified (principal); G93.41 Metabolic encephalopathy; E43 Unspecified severe protein-calorie malnutrition; I50.32 Chronic diastolic (congestive) heart failure; F03.90 Unspecified dementia, unspecified severity, without behavioral disturbance, psychotic disturbance, mood disturbance, and anxiety; R19.7 Diarrhea, unspecified; E87.6 Hypokalemia; E86.0 Dehydration; I48.91 Unspecified atrial fibrillation; I11.0 Hypertensive heart disease with heart failure; E78.5 Hyperlipidemia, unspecified; I48.2 Chronic atrial fibrillation; Z79.01 Long term (current) use of anticoagulants; F32.9 Major depressive disorder, single episode, unspecified
CPT/HCPCS: 36415; 51700; 70450; 71045; 80048; 80053; 81001; 82140; 82550; 82553; 82607; 83605; 83630; 83735; 84100; 84425; 84436; 84443; 84479; 84484; 85025; 85610; 85730; 86592; 87040; 87045; 87086; 87493; 93005; 95816; 97139; 99284; J0360; J0696; J2270; J3480; J7030; J7040

== ENCOUNTER 2019-01-24 11:32 | Inpatient (IN) | payer MEDICARE, OTHER ==
[~2019-01-24] VITALS: Ht 160 cm; Wt 63.6 kg
[~2019-01-24 11:32] MED LIST changes: +ACETAMINOPHEN325 M1 PO; +BENAZEPRIL HCL10 MG PO; +BIOTIN1 MG PO; +CATAPRES-TTS 11 EACH TD; +DONEPEZIL HCL10 MG PO; +HYDROCHLOROTHIA25 MG PO; +LEVOTHYROXINE75 MCG PO; +LORAZEPAM0.5 MG PO; +METOPROLOL TART25 MG PO; +SINGULAIR10 MG PO; +ZOLOFT50 MG PO
[2019-01-24] MEDS ORDERED: SODIUM CHLORIDE 0.9% 1000ML 1,000 ML IV STA (11:37)
[2019-01-24 12:56] LABS: BASOPHILS # (AUTO) 0.1 (0.0-0.1); BASOPHILS % 0.4 % (0.0-1.0); EOSINOPHILS # (AUTO) 0.1 (0.0-0.4); EOSINOPHILS % 0.9 % (0.0-6.0); HEMATOCRIT 44.1 % (34.2-44.1); HEMOGLOBIN 14.4 g/dL (12.0-16.0); LYMPHOCYTES # (AUTO) 1.4 (1.0-3.2); LYMPHOCYTES % 10.9 % (18.0-39.1); MEAN CORPUSCULAR HEMOGLOBIN 29.8 pg (28-32); MEAN CORPUSCULAR HGB CONC 32.7 g/dL (31-35); MEAN CORPUSCULAR VOLUME 91.1 fL (81-99); MONOCYTES # (AUTO) 0.8 (0.2-0.8); MONOCYTES % 6.4 % (4.4-11.3); NEUTROPHILS # (AUTO) 10.3 (2.1-6.9); NEUTROPHILS % 80.9 % (38.7-80.0); PLATELET COUNT 290 x10e3/uL (140-360); RED BLOOD COUNT 4.84 x10e6/uL (3.6-5.1); RED CELL DISTRIBUTION WIDTH 15.1 % (11.7-14.4)
[2019-01-24 13:22] LABS: ALBUMIN 3.3 g/dL (3.5-5.0); ALBUMIN/GLOBULIN RATIO 0.8 (0.8-2.0); ANION GAP 14.9 mmol/L (8-16); CALCIUM 9.1 mg/dL (8.4-10.2); CREATININE, SERUM 1.25 mg/dL (0.57-1.11)
[2019-01-24] MEDS ORDERED: HYDRALAZINE HCL 20 MG/ML VIAL IV ONE (13:23)
[2019-01-24 13:28] LABS: POTASSIUM 2.9 mmol/L (3.5-5.1)
[2019-01-24 13:33] LABS: B-TYPE NATRIURETIC PEPTIDE2 223.1 pg/mL (0-100)
[2019-01-24 13:35] LABS: CREATINE KINASE MB 0.7 ng/mL (0-5.0)
[2019-01-24 13:45] LABS: BILIRUBIN,URINE NEGATIVE (NEGATIVE); CLARITY,URINE CLEAR (CLEAR); COLOR,URINE YELLOW (YELLOW); KETONES,URINE NEGATIVE (NEGATIVE); LEUKOCYTE ESTERASE ,URINE NEGATIVE (NEGATIVE); NITRITE,URINE NEGATIVE (NEGATIVE); PROTEIN,URINE DIPSTICK NEGATIVE (NEGATIVE); URINE UROBILINOGEN 0.2 mg/dL (0.2 - 1)
[2019-01-24] MEDS ORDERED: PANTOPRAZOLE SO20 MG PO (13:57)
[2019-01-24] MEDS ORDERED: AMIODARONE HCL200 MG PO (13:57)
[2019-01-24] MEDS ORDERED: METOPROLOL TART25 MG PO (13:57)
[2019-01-24 14:09] LABS: BACTERIA,URINE MANY /HPF; EPITHELIAL CELLS,URINE FEW /LPF
--- NOTE | 2019-01-24 14:10 | Diagnostic Imaging Report ---
EXAM: CHEST SINGLE (PORTABLE) DATE: 01/24/2019 11:37 AM INDICATION: Weakness, abnormal blood work COMPARISON: 12/29/2017 FINDINGS: The trachea is midline. Suspected calcified granuloma noted within the left lower lobe. Lungs are otherwise symmetrically expanded without evidence for focal consolidation, pneumothorax, or significant pleural effusion. Stable calcified mediastinal lymph nodes noted. Atherosclerotic calcifications noted within the aortic arch. The cardiomediastinal silhouette is otherwise unremarkable. No acute osseous abnormality identified. IMPRESSION: No acute cardiopulmonary process identified. Signed by: Dr. Schuyler Chadwick MD on 01/24/2019 2:07 PM
[2019-01-24] MEDS ORDERED: POTASSIUM CHLORIDE 20MEQ/15ML UDC PO ONE (14:30)
[2019-01-24] MEDS ORDERED: POTASSIUM CHLORIDE 20MEQ/100ML 200 ML IV ONE (14:30)
[2019-01-24] MEDS ORDERED: ONDANSETRON HCL INJ 2MG/ML 2ML 2 MG/ML VIAL IV PRN (14:30)
[2019-01-24] MEDS: SODIUM CHLORIDE 0.9% 1000ML 1,000 ML IV SCH (14:57)
[2019-01-24] MEDS: CEFTRIAXONE SOD 1 GM/NS 50 ML 50 ML IV SCH (14:57)
[2019-01-24 17:35] VITALS: BP 176/99
[2019-01-24 17:51] VITALS: BP 176/99
[2019-01-24] MEDS ORDERED: LORAZEPAM 0.5 MG TAB PO PRN (18:00)
[2019-01-24] MEDS ORDERED: [UNRECOGNIZED DRUG - OTHER] PO SCH (18:00)
[2019-01-24] MEDS ORDERED: CLONIDINE HCL 0.1 MG/24 HR 1 EA PATCH TOP SCH (19:00)
--- NOTE | 2019-01-24 19:00 | NUR ---
Complete nursing report with morning nurse. Pt alert to name, lying in bed, HOB 45 degrees. Denies pain at this time. Bed low and locked. Family at bedside. Call light within reach. Will continue to monitor.
--- NOTE | 2019-01-24 19:18 | Diagnostic Imaging Report ---
Exam: Head CT without contrast History: Altered mental status, headache Comparison studies: Head CT multiple head CTs which date to 08/10/2017, most recent of 12/29/2017. Brain MRI 08/15/2017 Technique: Axial images were obtained from the skull base to the vertex. Coronal and sagittal images reconstructed from the axial data. Dose modulation, iterative reconstruction, and/or weight based adjustment of the mA/kV was utilized to reduce the radiation dose to as low as reasonably achievable. Radiation dose: Total DLP: 921 mGy*cm. Estimated effective dose: DLP x 0.015 Intravenous contrast: None Findings: Scalp: No abnormalities. Bones: No fractures, blastic or lytic lesions. Brain sulci: Mildly prom. Ventricles: Mild compensatory dilatation. No hydrocephalus. Extra-axial spaces: No masses, no fluid collection. Parenchyma: No mass, acute hemorrhage or acute cortical insults. Chronic cortical/subcortical infarct centered in the right occipital lobe which extends above and below the calcarine fissure with encephalomalacia and gliosis in the right [employer] [facility] territory. Chronic lacunar infarct present in the right thalamus. These findings are new from the prior head CT 12/29/2017. Chronic lacunar infarcts present in the anterior limb of the right internal capsule and bilateral subinsular regions as well as confluent hypodensities in the supratentorial white matter which are most compatible with chronic microvascular ischemic changes. Sellar/suprasellar region: No abnormalities. Craniocervical junction: Patent foramen magnum. No Chiari one malformation. Incidental findings: Lens replacements for previous cataract surgery. Atherosclerotic calcifications in the carotid siphons an in the left intradural vertebral artery. IMPRESSION: No acute intracranial abnormalities. Chronic findings: 1. Mild generalized parenchymal volume loss. 2. Old right occipital infarct, new from 12/29/2017. 3. Old right thalamic lacunar infarct, new from 12/29/2017. 4. Moderate chronic microvascular ischemic changes with additional small chronic lacunar infarcts as described. Signed by: Dr. Neftaly Watt M.D. on 01/24/2019 7:15 PM
[2019-01-24 20:00] VITALS: BP 149/110
[2019-01-24] MEDS: NON-FORMULARY MEDICATION (Mirabegron (Myrbetriq) 50 MG) PO SCH (20:34)
[2019-01-24] MEDS: DONEPEZIL HCL 5 MG TAB PO SCH (20:36)
[2019-01-24] MEDS: APIXAB 2.5 MG TABLET PO SCH (20:36)
[2019-01-24] MEDS: MONTELUKAST SODIUM 10 MG TAB PO SCH (20:36)
[2019-01-24] MEDS: LATANOPROST(OPTH) 2.5 ML BTL OP SCH (20:37)
[2019-01-24 21:00] VITALS: BP 149/110
[2019-01-24] MEDS ORDERED: NON-FORMULARY MEDICATION (Donepezil Hcl 10 MG) PO SCH (21:00)
[2019-01-25] VITALS (8 sets, daily range): BP systolic 134–181; BP diastolic 72–110
[2019-01-25] MEDS: HYDRALAZINE HCL 20 MG/ML VIAL IV PRN (00:39)
--- NOTE | 2019-01-25 00:39 | NUR ---
Pt BP elevated 155/110, prn Hydralazine admin.
--- NOTE | 2019-01-25 00:55 | History and Physical ---
HISTORY OF PRESENT ILLNESS: She is an 88-year-old female patient, who was transferred from to detention as the patient was having altered mental status and the patient was having mental status changes. The patient is a poor historian, but most of the history was obtained from the family and the daughter at the bedside. Ms. Callahan is an 88-year-old female patient with a history of underlying Alzheimer dementia and was having decreased appetite and altered mental status. The patient was lot confused and outpatient checkup was done and was treated outpatient. Her potassium was low, so potassium supplement was done and antibiotics were given. The patient was not improving. The patient was getting more and more weak. So, the patient was brought into the emergency room. REVIEW OF SYSTEMS: The patient has profound weakness and decreased alertness. The patient has a dark urination. The patient denies any shortness of breath. The patient has eye redness also and eyes getting sticky. ALLERGIES: THE PATIENT IS ALLERGIC TO LATEX. PAST MEDICAL HISTORY: Hypertension, atrial fibrillation, arthritis, and advanced dementia. SOCIAL HISTORY: The patient denies smoking. Denies using alcohol. FAMILY HISTORY: Hypertension. PAST HISTORY: As previously dictated, atrial fibrillation, hypertension, and dementia. PHYSICAL EXAMINATION: VITAL SIGNS: Temperature 99, pulse 82, respiratory rate 16, blood pressure 130/90. HEENT: Normocephalic and atraumatic. NECK: No JVD. No lymphadenopathy. LUNGS: Bilateral equal air entry. Occasional rales present. HEART: S1 and S2, irregularly irregular. Systolic murmur present. ABDOMEN: Soft. Bowel sounds present. NEUROLOGICAL: The patient moves all extremities and the patient is confused. ADMITTING IMPRESSION/DIAGNOSES: Metabolic encephalopathy with urinary tract infection and generalized weakness and as mentioned conjunctivitis, worsening underlying dementia with urinary tract infection. PLAN: We will give potassium supplements for hypokalemia. We will give the patient Bleph-10 ophthalmic drops for both eyes. The patient will have PT, OT therapy. The patient will be getting the Rocephin, IV antibiotic. We will obtain urine culture and further plans as per the culture and sensitivity reports. Popeye Collazo MD VMP/MODL /[id number]
[2019-01-25] MEDS: CEFTRIAXONE SOD 1 GM/NS 50 ML 50 ML IV SCH ×2 (02:50→15:07)
[2019-01-25 05:07] LABS: BASOPHILS # (AUTO) 0.1 (0.0-0.1); BASOPHILS % 0.6 % (0.0-1.0); EOSINOPHILS # (AUTO) 0.1 (0.0-0.4); EOSINOPHILS % 0.8 % (0.0-6.0); HEMATOCRIT 44.9 % (34.2-44.1); HEMOGLOBIN 14.9 g/dL (12.0-16.0); LYMPHOCYTES # (AUTO) 1.2 (1.0-3.2); LYMPHOCYTES % 11.4 % (18.0-39.1); MEAN CORPUSCULAR HGB CONC 33.2 g/dL (31-35); MEAN CORPUSCULAR VOLUME 90.3 fL (81-99); MONOCYTES # (AUTO) 0.7 (0.2-0.8); MONOCYTES % 6.6 % (4.4-11.3); NEUTROPHILS # (AUTO) 8.6 (2.1-6.9); NEUTROPHILS % 80.1 % (38.7-80.0); PLATELET COUNT 285 x10e3/uL (140-360); RED BLOOD COUNT 4.97 x10e6/uL (3.6-5.1); RED CELL DISTRIBUTION WIDTH 15.5 % (11.7-14.4)
[2019-01-25 05:32] LABS: ALBUMIN 3.2 g/dL (3.5-5.0); ALBUMIN/GLOBULIN RATIO 0.9 (0.8-2.0); ANION GAP 15.1 mmol/L (8-16); CALCIUM 8.9 mg/dL (8.4-10.2); CREATININE, SERUM 1.06 mg/dL (0.57-1.11); POTASSIUM 3.1 mmol/L (3.5-5.1)
[2019-01-25] MEDS: SULFACETAMIDE SODIUM OP SCH ×4 (08:59→21:00)
[2019-01-25] MEDS: PANTOPRAZOLE SOD 40 MG TABEC PO SCH ×2 (08:59→17:07)
[2019-01-25] MEDS: AZELASTINE HCL(OPTH) 6 ML BOTTLE OP SCH ×2 (08:59→17:25)
[2019-01-25] MEDS: APIXAB 2.5 MG TABLET PO SCH ×2 (09:00→21:00)
[2019-01-25] MEDS ORDERED: NON-FORMULARY MEDICATION (Pantoprazole Sodium 40 MG) PO SCH (09:00)
[2019-01-25] MEDS: NON-FORMULARY MEDICATION (Biotin 1 MG) PO SCH (09:00)
[2019-01-25] MEDS ORDERED: PANTOPRAZOLE SOD 40 MG TABEC PO SCH (09:00)
[2019-01-25] MEDS: AMIODARONE HCL 200 MG TAB PO SCH ×2 (09:00→17:09)
[2019-01-25] MEDS: METOPROLOL TARTRATE 25 MG TAB PO SCH ×2 (09:01→17:09)
[2019-01-25] MEDS: SERTRALINE HCL 50 MG TAB PO SCH (09:02)
[2019-01-25] MEDS: BENAZEPRIL HCL 10 MG TAB PO SCH (09:02)
[2019-01-25] MEDS: SODIUM CHLORIDE 0.9% 1000ML 1,000 ML IV SCH ×4 (09:11→22:23)
[2019-01-25] MEDS: LEVOTHYROXINE SODIUM 75 MCG TAB PO SCH (09:11)
[2019-01-25] MEDS ORDERED: POTASSIUM CHLORIDE 10MEQ EA PO NR (10:45)
[2019-01-25] MEDS ORDERED: POTASSIUM CHLORIDE 10MEQ EA PO ONE (13:00)
--- NOTE | 2019-01-25 18:55 | NUR ---
Report received from morning nurse. Pt alert to name, lying in bed, HOB 45 degrees. Denies pain at this time. Bed low and locked. Call light within reach. Will continue to monitor.
[2019-01-25] MEDS: DONEPEZIL HCL 5 MG TAB PO SCH (21:00)
[2019-01-25] MEDS: NON-FORMULARY MEDICATION (Mirabegron (Myrbetriq) 50 MG) PO SCH (21:00)
[2019-01-25] MEDS: MONTELUKAST SODIUM 10 MG TAB PO SCH (21:00)
[2019-01-25] MEDS: LATANOPROST(OPTH) 2.5 ML BTL OP SCH (21:00)
[2019-01-26] VITALS (8 sets, daily range): BP systolic 132–167; BP diastolic 83–105
[2019-01-26] MEDS: CEFTRIAXONE SOD 1 GM/NS 50 ML 50 ML IV SCH ×2 (02:30→14:56)
[2019-01-26 05:42] LABS: ALBUMIN 2.7 g/dL (3.5-5.0); ALBUMIN/GLOBULIN RATIO 0.9 (0.8-2.0); ANION GAP 13.3 mmol/L (8-16); CALCIUM 8.2 mg/dL (8.4-10.2); CREATININE, SERUM 1.1 mg/dL (0.57-1.11); POTASSIUM 3.3 mmol/L (3.5-5.1)
[2019-01-26] MEDS: LEVOTHYROXINE SODIUM 75 MCG TAB PO SCH (05:51)
[2019-01-26] MEDS: SODIUM CHLORIDE 0.9% 1000ML 1,000 ML IV SCH ×2 (06:19→14:56)
--- NOTE | 2019-01-26 06:40 | NUR ---
Pt lying in bed, HOB 60 degrees, resting with eyes closed, RR even and unlabored. No acute distress noted.
--- NOTE | 2019-01-26 07:00 | NUR ---
BEDSIDE SHIFT REPORT RECEIVED FROM THE PSYCHOLOGICAL STRESS EVALUATOR RN. PT IS CONFUSED. CALL LIGHT WITH IN EASY REACH. BED IS LOW AND LOCKED. SIDE RAILS X2. BED ALARM IS ON. PT DENIES NEEDS AT THIS TIME.
[2019-01-26] MEDS: PANTOPRAZOLE SOD 40 MG TABEC PO SCH ×2 (08:25→17:07)
[2019-01-26] MEDS: AMIODARONE HCL 200 MG TAB PO SCH ×2 (08:25→17:07)
[2019-01-26] MEDS: METOPROLOL TARTRATE 25 MG TAB PO SCH ×2 (08:26→17:08)
[2019-01-26] MEDS: APIXAB 2.5 MG TABLET PO SCH ×2 (08:26→21:39)
[2019-01-26] MEDS: SERTRALINE HCL 50 MG TAB PO SCH (08:27)
[2019-01-26] MEDS: BENAZEPRIL HCL 10 MG TAB PO SCH (08:27)
[2019-01-26] MEDS: NON-FORMULARY MEDICATION (Biotin 1 MG) PO SCH (08:37)
[2019-01-26] MEDS: SULFACETAMIDE SODIUM OP SCH ×4 (08:37→21:39)
[2019-01-26] MEDS: AZELASTINE HCL(OPTH) 6 ML BOTTLE OP SCH ×2 (08:37→17:07)
[2019-01-26] MEDS ORDERED: POTASSIUM CHLORIDE 10MEQ EA PO ONE (11:15)
--- NOTE | 2019-01-26 13:36 | NUR ---
Spoke to pt's daughter at bedside and discussed dc plan. She states plan for her mom to return to [facility]. Informed her that we will start process today, in case Dr. Collazo is ready to discharge her over the weekend. She verbalized understanding. Choice letter signed and placed in chart. Copy to daughter. IMM letter delivered and explained to pt's daughter. She verbalized understanding. Signed copy placed in chart. Copy to pt's daughter. Clinicals faxed to Viktor Powell at [phone]
[2019-01-26] MEDS ORDERED: ONDANSETRON HCL 4 MG ORAL DISINTEGRATING TAB PO PRN (15:45)
--- NOTE | 2019-01-26 16:03 | Diagnostic Imaging Report ---
Modified barium swallow, 01/26/2019. History: Dysphagia. Fluoro time: 1.4 min. Dose: 4.3 mGy (ROSSANA) Technique: Fluoroscopic observation and imaging of the oral cavity, oropharynx, and hypopharynx was performed in the lateral projection during swallowing of liquids and solids, administered by speech pathology. IMPRESSION: No evidence of penetration or aspiration. See speech pathologist report for complete details. Signed by: Bruno Monroy MD on 01/26/2019 3:59 PM
--- NOTE | 2019-01-26 16:39 | NUR ---
Nutrition Screen Note RD Recommendation for Physician: -Continue current diet as ordered Plan of Care: RD following, monitoring for tolerance and adequacy Nutrition reason for involvement: MST Primary Diagnose(s): UTI and AMS PMH: HTN, afib, dementia Ht: 63 in Wt:140 lb BMI: 24.8 kg/m2 IBW:[address] Assessment: (01/26/19) Chart reviewed. Labs and meds reviewed. Pt is an 88 year old female admitted with UTI and AMS. It is documented that pt is confused and there were no family members present at time of visit; therefore, prior nutrition history is limited. ST evaluated pt and recommended a mechanical soft diet with thin liquids. Per chart, pt has been consuming 50-75% of meals during admission. Will continue to monitor. Current Diet: Cardiac diet with mechanical soft consistency Malnutrition Evaluation (01/26/19) The patient does not meet criteria for a specified degree of malnutrition at this time. Will re-evaluate at follow-up as appropriate. Diet Education Needs Assessment: Diet education not indicated. Nutrition Care Level: low Signed: Kalina Peres, RD, LD
--- NOTE | 2019-01-26 19:00 | NUR ---
BEDSIDE SHIFT REPORT GIVEN TO THE HIGH SCHOOL BUSINESS TEACHER RN. PT DENIED FURTHER NEEDS.
[2019-01-26] MEDS: NON-FORMULARY MEDICATION (Mirabegron (Myrbetriq) 50 MG) PO SCH (21:00)
[2019-01-26] MEDS: LATANOPROST(OPTH) 2.5 ML BTL OP SCH (21:39)
[2019-01-26] MEDS: DONEPEZIL HCL 5 MG TAB PO SCH (21:39)
[2019-01-26] MEDS: MONTELUKAST SODIUM 10 MG TAB PO SCH (21:39)
[2019-01-27] VITALS (8 sets, daily range): BP systolic 133–175; BP diastolic 62–88
[2019-01-27] MEDS: CEFTRIAXONE SOD 1 GM/NS 50 ML 50 ML IV SCH ×2 (02:17→14:08)
[2019-01-27] MEDS: SODIUM CHLORIDE 0.9% 1000ML 1,000 ML IV SCH ×4 (04:33→18:17)
[2019-01-27] MEDS: HYDRALAZINE HCL 20 MG/ML VIAL IV PRN (04:34)
[2019-01-27] MEDS: LEVOTHYROXINE SODIUM 75 MCG TAB PO SCH (04:42)
[2019-01-27 05:41] LABS: ALBUMIN 2.5 g/dL (3.5-5.0); ALBUMIN/GLOBULIN RATIO 0.9 (0.8-2.0); ANION GAP 11.3 mmol/L (8-16); CREATININE, SERUM 1.11 mg/dL (0.57-1.11); POTASSIUM 3.3 mmol/L (3.5-5.1)
--- NOTE | 2019-01-27 07:00 | NUR ---
RECEIVED PATIENT ASLEEP IN BED NO S/S OF DISTRESS. BED LOW, WHEELS LOCKED, SIDE RAILS X2, CALL LIGHT IN REACH WILL CONTINUE TO MONITOR PATIENT.
[2019-01-27] MEDS: SERTRALINE HCL 50 MG TAB PO SCH (08:42)
[2019-01-27] MEDS: AMIODARONE HCL 200 MG TAB PO SCH ×2 (08:42→17:32)
[2019-01-27] MEDS: NON-FORMULARY MEDICATION (Biotin 1 MG) PO SCH (08:42)
[2019-01-27] MEDS: METOPROLOL TARTRATE 25 MG TAB PO SCH ×2 (08:42→17:33)
[2019-01-27] MEDS: APIXAB 2.5 MG TABLET PO SCH ×2 (08:42→21:26)
[2019-01-27] MEDS: BENAZEPRIL HCL 10 MG TAB PO SCH (08:42)
[2019-01-27] MEDS: AZELASTINE HCL(OPTH) 6 ML BOTTLE OP SCH ×2 (08:42→17:32)
[2019-01-27] MEDS: PANTOPRAZOLE SOD 40 MG TABEC PO SCH ×2 (08:42→17:32)
[2019-01-27] MEDS: SULFACETAMIDE SODIUM OP SCH ×4 (08:42→21:38)
--- NOTE | 2019-01-27 10:05 | NUR ---
PATIENT A/O X2, EVEN RESPIRATIONS ON RA. LUNG SOUNDS CLEAR TO AUSCULTATION. PATIENT INCONTINENT VOIDS IN DIAPER. CAREGIVER AT BEDSIDE. REDNESS TO SACRUM, ALTERNATING PRESSURE MATTRESS IN PLACE. RIGHT UA 22 GAUGE IV SL. PATIENT DENIES PAIN AT THIS TIME. CALL LIGHT IN REACH WILL CONTINUE TO MONITOR PATIENT.
[2019-01-27] MEDS: POTASSIUM BICARBONATE/CIT AC 20 MEQ TABLET.EFF PO ONE ×2 (15:01→17:37)
[2019-01-27] MEDS ORDERED: AMLODIPINE BESYLATE 5 MG TAB PO SCH (17:00)
--- NOTE | 2019-01-27 17:42 | NUR ---
SPOKE WITH DR. RIVER REGARDING PATIENT REFUSING LIQUID POTASSIUM. NEW ORDER FOR POTASSIUM TABLET 40 MEQ PO X1. NEW ORDERS IMPLEMENTED.
[2019-01-27] MEDS ORDERED: POTASSIUM CHLORIDE 10MEQ EA PO NR (17:45)
[2019-01-27] MEDS: NON-FORMULARY MEDICATION (Mirabegron (Myrbetriq) 50 MG) PO SCH (21:00)
[2019-01-27] MEDS: DONEPEZIL HCL 5 MG TAB PO SCH (21:26)
[2019-01-27] MEDS: MONTELUKAST SODIUM 10 MG TAB PO SCH (21:26)
[2019-01-27] MEDS: LATANOPROST(OPTH) 2.5 ML BTL OP SCH (21:38)
[2019-01-28] VITALS (8 sets, daily range): BP systolic 132–176; BP diastolic 68–90
[2019-01-28] MEDS: CEFTRIAXONE SOD 1 GM/NS 50 ML 50 ML IV SCH ×2 (02:23→15:03)
[2019-01-28] MEDS: LEVOTHYROXINE SODIUM 75 MCG TAB PO SCH (05:09)
[2019-01-28 05:11] LABS: BASOPHILS % 0.5 % (0.0-1.0); EOSINOPHILS # (AUTO) 0.2 (0.0-0.4); HEMATOCRIT 39.6 % (34.2-44.1); HEMOGLOBIN 12.8 g/dL (12.0-16.0); LYMPHOCYTES # (AUTO) 1.3 (1.0-3.2); LYMPHOCYTES % 17.4 % (18.0-39.1); MEAN CORPUSCULAR HEMOGLOBIN 30.1 pg (28-32); MEAN CORPUSCULAR HGB CONC 32.3 g/dL (31-35); MEAN CORPUSCULAR VOLUME 93.2 fL (81-99); MONOCYTES # (AUTO) 0.4 (0.2-0.8); MONOCYTES % 5.8 % (4.4-11.3); NEUTROPHILS # (AUTO) 5.6 (2.1-6.9); NEUTROPHILS % 73.9 % (38.7-80.0); PLATELET COUNT 223 x10e3/uL (140-360); RED BLOOD COUNT 4.25 x10e6/uL (3.6-5.1); RED CELL DISTRIBUTION WIDTH 15.6 % (11.7-14.4)
[2019-01-28 05:41] LABS: ANION GAP 13.7 mmol/L (8-16); CALCIUM 8.4 mg/dL (8.4-10.2); CREATININE, SERUM 1.13 mg/dL (0.57-1.11); MAGNESIUM 1.6 MG/DL (1.3-2.1); POTASSIUM 3.7 mmol/L (3.5-5.1)
[2019-01-28 06:01] LABS: THYROID STIMULATING HORMONE 17.449 uIU/mL (0.350-4.940)
[2019-01-28] MEDS: PANTOPRAZOLE SOD 40 MG TABEC PO SCH ×2 (08:11→16:13)
--- NOTE | 2019-01-28 08:37 | NUR ---
Report was received from the charge nurse and the pt. was received in stable condition. She is positioned in bed for morning meal.
[2019-01-28] MEDS: NON-FORMULARY MEDICATION (Biotin 1 MG) PO SCH (09:00)
[2019-01-28] MEDS: AMIODARONE HCL 200 MG TAB PO SCH ×2 (09:07→16:13)
[2019-01-28] MEDS: APIXAB 2.5 MG TABLET PO SCH ×2 (09:07→20:53)
[2019-01-28] MEDS: SERTRALINE HCL 50 MG TAB PO SCH (09:08)
[2019-01-28] MEDS: BENAZEPRIL HCL 10 MG TAB PO SCH (09:08)
[2019-01-28] MEDS: METOPROLOL TARTRATE 25 MG TAB PO SCH ×2 (09:08→16:13)
[2019-01-28] MEDS: AZELASTINE HCL(OPTH) 6 ML BOTTLE OP SCH ×2 (09:09→16:13)
[2019-01-28] MEDS: SULFACETAMIDE SODIUM OP SCH ×4 (09:09→20:53)
[2019-01-28] MEDS: SODIUM CHLORIDE 0.9% 1000ML 1,000 ML IV SCH ×2 (12:03→15:04)
[2019-01-28] MEDS: ACETAMINOPHEN 325 MG TAB PO PRN (14:54)
[2019-01-28] MEDS ORDERED: AMLODIPINE BESYLATE 5 MG TAB PO SCH (17:00)
[2019-01-28] MEDS: MONTELUKAST SODIUM 10 MG TAB PO SCH (20:53)
[2019-01-28] MEDS: NON-FORMULARY MEDICATION (Mirabegron (Myrbetriq) 50 MG) PO SCH (20:53)
[2019-01-28] MEDS: DONEPEZIL HCL 5 MG TAB PO SCH (20:53)
[2019-01-28] MEDS: LATANOPROST(OPTH) 2.5 ML BTL OP SCH (20:53)
[2019-01-29 00:48] VITALS: BP 149/78
[2019-01-29] MEDS: CEFTRIAXONE SOD 1 GM/NS 50 ML 50 ML IV SCH (02:55)
[2019-01-29] MEDS: SODIUM CHLORIDE 0.9% 1000ML 1,000 ML IV SCH (02:55)
[2019-01-29] MEDS: HYDRALAZINE HCL 20 MG/ML VIAL IV PRN (05:02)
[2019-01-29 05:30] VITALS: BP 176/87
[2019-01-29 05:41] LABS: ALBUMIN 2.6 g/dL (3.5-5.0); ALBUMIN/GLOBULIN RATIO 0.8 (0.8-2.0); CALCIUM 8.2 mg/dL (8.4-10.2); CREATININE, SERUM 1.04 mg/dL (0.57-1.11)
[2019-01-29] MEDS ORDERED: LEVOTHYROXINE SODIUM 112 MCG TAB PO SCH (06:00)
[2019-01-29 07:54] VITALS: BP 154/72
--- NOTE | 2019-01-29 08:25 | NUR ---
Paged Dr Celine Collazo regarding k-3.0, new order recvd for 40 meq PO
[2019-01-29 08:41] VITALS: BP 154/72
[2019-01-29] MEDS: NON-FORMULARY MEDICATION (Biotin 1 MG) PO SCH (09:00)
[2019-01-29] MEDS: AZELASTINE HCL(OPTH) 6 ML BOTTLE OP SCH (09:25)
[2019-01-29] MEDS: APIXAB 2.5 MG TABLET PO SCH (09:25)
[2019-01-29] MEDS: SULFACETAMIDE SODIUM OP SCH ×2 (09:25→13:50)
[2019-01-29] MEDS: AMIODARONE HCL 200 MG TAB PO SCH (09:25)
[2019-01-29] MEDS: PANTOPRAZOLE SOD 40 MG TABEC PO SCH (09:25)
[2019-01-29] MEDS: METOPROLOL TARTRATE 25 MG TAB PO SCH (09:26)
[2019-01-29] MEDS: SERTRALINE HCL 50 MG TAB PO SCH (09:26)
[2019-01-29] MEDS: BENAZEPRIL HCL 10 MG TAB PO SCH (09:26)
[2019-01-29] MEDS ORDERED: ALDACTONE25 MG PO (10:29)
[2019-01-29] MEDS ORDERED: POTASSIUM CHLORIDE 20 MEQ TAB CR PO ONE (11:30)
--- NOTE | 2019-01-29 11:37 | NUR ---
Called and spoke to Bessy at [facility]. Informed pt to return today. Pt will return to room 31A under Dr. Celine Collazo Shop Welder: Alyssa Roche [facility] [address] [place] [address] IMM letter delivered and discussed with pt's daughter Arlyn Callahan at bedside. She verbalized understanding. Signed copy placed in chart. Copy to daughter. GILBERT Poole was informed of bed assignment. RTF with pt's packet at nurses station.
[2019-01-29 11:58] VITALS: BP 140/68
[2019-01-29] MEDS: ACETAMINOPHEN 325 MG TAB PO PRN (12:45)
--- NOTE | 2019-01-29 15:30 | NUR ---
Patient discharged to [facility], [id number], Denies any pain, not in any distress, IV canula removed with tip intact, no infiltration noted, daughter at bed side, EMS here to pick patient. Report called to Dat PEREZ
[2019-01-29] MEDS ORDERED: CEFUROXIME AXETIL 250 MG TAB PO SCH (21:00)
--- NOTE | 2019-01-30 06:30 | Discharge Summary ---
This is an 88-year-old female patient of mine presented from the [facility] with altered mental status. ADMITTING IMPRESSION AND DIAGNOSES: 1. Metabolic encephalopathy with a urinary tract infection and hypokalemia. 2. Altered mental status. 3. Chronic protein-calorie malnutrition, moderate. 4. Advanced dementia, old cerebrovascular accident, frequent dysphagia. HOSPITAL COURSE SUMMARY: The patient was admitted with the above diagnoses. The patient was treated with IV antibiotics, Rocephin. The patient was given potassium supplement. The patient had a PT, OT, and speech therapy evaluation. Speech therapy had recommended a modified barium swallow, which did not show any aspiration. The patient has a CT scan of the brain done and the patient was found to have an old right occipital infarct and old right thalamic lacunar infarct, which probably will happen in less than a year. The patient's urine had showed E. coli, which was sensitive to Rocephin and cefepime. It is also sensitive to cefuroxime, now upon stabilization. The patient will be discharged home on oral cefuroxime. The patient will be given potassium supplement for hypokalemia. DISCHARGE DIAGNOSES: Urinary tract infection with metabolic encephalopathy equivalent with E coli UTI and hypokalemia and chronic protein-calorie malnutrition. The patient has a persistent hypokalemia as the patient is on hydrochlorothiazide. We will stop the hydrochlorothiazide. The patient is on spironolactone only once a day. MD CHRIS Thompson/KARISSA /[id number]
--- NOTE | 2019-01-31 11:01 | NUR ---
ST Note: Daughter Felipa Callahan phoned and asked for clinicals on pt Speech Therpay visit to hospital to share with WINDLASSER at facility. Felipa had business card from this therapist to share with WINDLASSER at facility and that WINDLASSER preferred to have a copy of the report rather than speak to this therapist on the phone. Spoke with My, rn field case manager, pt signed agreement to allow for hospital to fax clinicals, fax with MBS faxed to KEVIN York at [phone]
== END 2019-01-29 15:20 | DRG 689 ==
LOC: ER 11:32 → ERHOLD 14:19 → MED/SURG2 17:06
PROVIDERS: ADMIT Internal Medicine; ATTEND Internal Medicine
DX: N39.0 Urinary tract infection, site not specified (principal); G93.41 Metabolic encephalopathy; E44.0 Moderate protein-calorie malnutrition; E87.6 Hypokalemia; H10.9 Unspecified conjunctivitis; I48.91 Unspecified atrial fibrillation; Z79.01 Long term (current) use of anticoagulants; F03.90 Unspecified dementia, unspecified severity, without behavioral disturbance, psychotic disturbance, mood disturbance, and anxiety; M19.90 Unspecified osteoarthritis, unspecified site; Z68.24 Body mass index [BMI] 24.0-24.9, adult; Z86.73 Personal history of transient ischemic attack (TIA), and cerebral infarction without residual deficits; R13.10 Dysphagia, unspecified; B96.20 Unspecified Escherichia coli [E. coli] as the cause of diseases classified elsewhere
CPT/HCPCS: 36415; 70450; 71045; 74230; 80048; 80053; 81001; 82550; 82553; 83605; 83735; 83880; 84443; 84484; 85025; 87040; 87086; 87186; 87400; 93005; 96361; 97139; 99284; J0360; J0696; J2405; J3480; J7030

== ENCOUNTER 2019-06-02 21:42 | Inpatient (IN) | payer MEDICARE, OTHER ==
[~2019-06-02] VITALS: Ht 160 cm; Wt 57.6 kg
[~2019-06-02 21:42] MED LIST changes: +ALDACTONE25 MG PO; +AMIODARONE HCL200 MG PO; +PANTOPRAZOLE SO20 MG PO
[2019-06-02] MEDS ORDERED: CEFEPIME HCL 1 GM VIAL IV STA (21:55)
[2019-06-02] MEDS ORDERED: CEFEPIME 1GM/NS 0.9% 50 ML 50 ML IV ONE (22:23)
[2019-06-02 22:29] LABS: BASOPHILS # (AUTO) 0.1 (0.0-0.1); BASOPHILS % 0.2 % (0.0-1.0); EOSINOPHILS % 0.1 % (0.0-6.0); HEMATOCRIT 41.3 % (34.2-44.1); HEMOGLOBIN 13.5 g/dL (12.0-16.0); LYMPHOCYTES # (AUTO) 1.6 (1.0-3.2); LYMPHOCYTES % 4.4 % (18.0-39.1); MEAN CORPUSCULAR HEMOGLOBIN 30.7 pg (28-32); MEAN CORPUSCULAR HGB CONC 32.7 g/dL (31-35); MEAN CORPUSCULAR VOLUME 93.9 fL (81-99); MONOCYTES # (AUTO) 1.6 (0.2-0.8); MONOCYTES % 4.5 % (4.4-11.3); NEUTROPHILS # (AUTO) 31.4 (2.1-6.9); NEUTROPHILS % 89.7 % (38.7-80.0); PLATELET COUNT 314 x10e3/uL (140-360); RED CELL DISTRIBUTION WIDTH 14.6 % (11.7-14.4)
--- NOTE | 2019-06-02 22:36 | NUR ---
PATIENT RESTING IN BED COMFORTABLE, SIDE RAILS UP, BED IN LOW POSITION
[2019-06-02 22:45] LABS: ALBUMIN 2.8 g/dL (3.5-5.0); ALBUMIN/GLOBULIN RATIO 0.5 (0.8-2.0); ANION GAP 12.9 mmol/L (8-16); CALCIUM 9.9 mg/dL (8.4-10.2); CREATININE, SERUM 1.25 mg/dL (0.57-1.11)
[2019-06-02 22:50] LABS: POTASSIUM 7.9 mmol/L (3.5-5.1)
[2019-06-02 22:52] LABS: CREATINE KINASE MB 1.7 ng/mL (0-5.0)
[2019-06-02 23:49] LABS: CLARITY,URINE TURBID (CLEAR); COLOR,URINE YELLOW (YELLOW)
[2019-06-02 23:50] LABS: BACTERIA,URINE MANY /HPF; BILIRUBIN,URINE NEGATIVE (NEGATIVE); KETONES,URINE NEGATIVE (NEGATIVE); LEUKOCYTE ESTERASE ,URINE LARGE (NEGATIVE); NITRITE,URINE NEGATIVE (NEGATIVE); PROTEIN,URINE DIPSTICK >=300 (NEGATIVE); RBC,URINE >50 /HPF (0-5); URINE UROBILINOGEN 0.2 mg/dL (0.2 - 1); WBC,URINE (MAN) >50 /HPF (0-5)
[2019-06-02 23:51] LABS: EPITHELIAL CELLS,URINE MANY /LPF
--- NOTE | 2019-06-02 23:58 | Diagnostic Imaging Report ---
EXAMINATION: CHEST SINGLE (PORTABLE) INDICATION: Cough COMPARISON: Chest x-ray 01/24/2019 FINDINGS: TUBES and LINES: None. LUNGS: Normal lung volumes. Mild central bronchial wall thickening. Subtle left basilar haziness. No consolidations. PLEURA: No pleural effusion or pneumothorax. HEART AND MEDIASTINUM: The cardiomediastinal silhouette is within normal size limits. There are atherosclerotic calcifications within the aorta. Dense left perihilar calcified lymph node. BONES AND SOFT TISSUES: Degenerative changes in the spine and shoulders. No acute osseous lesion. Soft tissues are unremarkable. UPPER ABDOMEN: No free air under the diaphragm. IMPRESSION: Subtle findings of bronchitis. Subtle left basilar haziness can be due to atelectasis or pneumonia. Signed by: Bryant Andrade DO on 06/02/2019 11:54 PM
[2019-06-03] VITALS (9 sets, daily range): BP systolic 117–163; BP diastolic 64–109
[2019-06-03 00:10] LABS: ALANINE AMINOTRANSFERASE 21 IU/L (0-55); ALBUMIN 2.7 g/dL (3.5-5.0); ALBUMIN/GLOBULIN RATIO 0.6 (0.8-2.0); ALKALINE PHOSPHATASE 104 IU/L (40-150); ANION GAP 16.4 mmol/L (8-16); BLOOD UREA NITROGEN 33 mg/dL (7-26); BUN/CREATININE RATIO 29 (6-25); CALCIUM 9.6 mg/dL (8.4-10.2); CARBON DIOXIDE 25 mmol/L (22-29); CHLORIDE 100 mmol/L (98-107); CREATINE KINASE 87 IU/L (29-168); CREATININE, SERUM 1.14 mg/dL (0.57-1.11); EST GLOMERULAR FILTRATION RATE 45 ML/MIN (60-); GLUCOSE 140 mg/dL (74-118); POTASSIUM 4.4 mmol/L (3.5-5.1); SODIUM 137 mmol/L (136-145)
[2019-06-03] MEDS ORDERED: VANCOMYCIN 1GM/NS 250 ML 250 ML IV SCH (00:15)
[2019-06-03] MEDS ORDERED: IOPAMIDOL 370 MG/ML 200 ML INFUS..BTL INJ ONE (01:02)
--- NOTE | 2019-06-03 01:23 | Diagnostic Imaging Report ---
CT MAX FAC/PARANASAL W HISTORY: Left-sided facial swelling; history of right-sided hemiplegia with CVA at beginning of April (per submitted documents) COMPARISON: Head CT 01/24/[address] 11/28/2017 TECHNIQUE: Axial CT images through the face were obtained with intravenous contrast. Coronal/sagittal reformations were created. One or more of the following dose reduction techniques were used: Automated exposure control, adjustment of the mA and/or kV according to patient size, and/or utilization of iterative reconstruction technique. Dental prosthesis streak artifacts obscure some details. DISCUSSION: There is mild heterogeneous hyperenhancement of the left parotid gland and left submandibular gland. There is associated subcutaneous fat stranding adjacent to the left parotid gland. These findings are suggestive of left parotitis/left submandibular sialadenitis. No discrete drainable fluid collection is identified. The right submandibular and right parotid glands are otherwise unremarkable. Trace fluid layers in the pharynx. Otherwise, the imaged upper aerodigestive tract is unremarkable. Approximately 1.2 cm left upper jugular chain lymph node is likely reactive. No other radiographically significant cervical adenopathy is seen in the imaged upper neck. No acute fracture is seen. There are mild to moderate degenerative changes throughout the spine. There is an old mildly displaced right lamina papyracea fracture. The orbits are otherwise intact. Bilateral ocular lens replacement. Intraorbital contents are otherwise grossly unremarkable. There is minimal mucosal thickening in the right frontal and left maxillary sinuses. The paranasal sinuses are otherwise clear. There is generalized cerebral volume loss. Moderate periventricular white matter hypodensities are likely chronic microvascular ischemic changes. There is an associated old lacunar infarct in the posterior right thalamus. Old right occipital infarct is partially imaged. Focal hypodensity in the left magallanes radiata was not present on head CT dated 01/24/2019. Carotid siphon calcifications are present. IMPRESSION: 1. Findings suggestive of left parotitis/left submandibular sialadenitis. No discrete drainable fluid collection. 2. Mild left upper jugular chain lymphadenopathy is likely reactive. 3. Trace fluid layers in the pharynx. Otherwise, the imaged upper aerodigestive tract is unremarkable. 4. New focal hypodensity in the left magallanes radiata, which was not present on head CT dated 01/24/2019, could be due to a subacute to chronic infarct. Signed by: Dr. Jose L Mccray M.D. on 06/03/2019 1:19 AM
[2019-06-03] MEDS ORDERED: SODIUM CHLORIDE 0.9% 250ML 250 ML ONE (01:45)
--- NOTE | 2019-06-03 02:30 | NUR ---
RECEIVED PATIENT FROM ER IN STABLE CONDITION, NO SIGNS OF DISTRESS NOTED. IV ANTIBIOTICS ARE RUNNING AT ORDERED RATE AND PATIENT VOICES NO SOUNDS OF PAIN AT THIS TIME. BRUISING NOTED ON BOTH UPPER AND LOWER EXTREMITIES AND PATIENT'S LEFT ARM IS NOTED TO BE CONTRACTED. BED IS IN LOWEST POSITION, BOTH SIDE RAILS ARE UP, CALL LIGHT IS WITHIN EASY REACH, WILL CONTINUE TO MONITOR.
[2019-06-03] MEDS ORDERED: CEFEPIME HCL 1 GM VIAL IV SCH (06:00)
[2019-06-03] MEDS ORDERED: CEFEPIME 1GM/NS 0.9% 50 ML 50 ML IV SCH (06:00)
--- NOTE | 2019-06-03 07:15 | NUR ---
Received patient lying in bed with eyes open. Respiration even and unlabored without SOB. Call light in reach.
[2019-06-03] MEDS ORDERED: ACETAMINOPHEN 325 MG TAB PO PRN (10:15)
[2019-06-03] MEDS ORDERED: LORAZEPAM 0.5 MG TAB PO PRN (10:30)
[2019-06-03] MEDS: AMIODARONE HCL 200 MG TAB PO SCH ×2 (11:00→18:40)
[2019-06-03 11:45] LABS: BASOPHILS # (AUTO) 0.1 (0.0-0.1); BASOPHILS % 0.2 % (0.0-1.0); EOSINOPHILS % 0.2 % (0.0-6.0); HEMATOCRIT 35.1 % (34.2-44.1); HEMOGLOBIN 11.6 g/dL (12.0-16.0); LYMPHOCYTES # (AUTO) 1.3 (1.0-3.2); LYMPHOCYTES % 6.3 % (18.0-39.1); MEAN CORPUSCULAR VOLUME 93.9 fL (81-99); MONOCYTES # (AUTO) 0.8 (0.2-0.8); MONOCYTES % 3.8 % (4.4-11.3); NEUTROPHILS # (AUTO) 17.9 (2.1-6.9); NEUTROPHILS % 88.9 % (38.7-80.0); PLATELET COUNT 281 x10e3/uL (140-360); RED BLOOD COUNT 3.74 x10e6/uL (3.6-5.1); RED CELL DISTRIBUTION WIDTH 14.6 % (11.7-14.4)
--- NOTE | 2019-06-03 11:54 | NUR ---
PT LIVES IN PERSONAL SNF: [facility] [id number] [facility] TWISTER FRAME TENDER: JONNATHAN [phone] FAX [phone] PCP: DR. EMELIA CHEN AND EMERGENCY CONTACT: DAUGHTER: SILVIA ARIZMENDI: [phone] CM SPOKE W/ JONNATHAN W/ PERSONAL SNF. SHE STATED PT DOES HAVE HOME HEALTH (DOES NOT RECALL COMP NAME), BUT NO HOME HEALTH ARE ALLOWED IN HOME DUE TO COVID-19 PRECAUTIONS. DME: HOSPITAL BED, WHEELCHAIR JONNATHAN STATED PT HAS HAD 2 CVA'S IN THE PAST 4 MONTHS, AND HAS BECOME BEDBOUND. SHE STATES FAMILY ARE HOPEFUL THAT PT WILL GET BETTER MOBILITY YUAN. SHE DID HAVE HOME PHYSICAL THERAPY, BUT DID NOT RESPOND WELL. SHE HAS DISCOMFORT AND IS UNCOOPERATIVE. SHE WILL FIGHT AND BITE. JONNATHAN STATED PT WAS RECENTLY AT [facility], AND THAT HOSPICE WAS DISCUSSED W/ FAMILY, BUT THEY REFUSED. JONNATHAN ALSO RECOMMENDS HOSPICE, DUE TO PT COMFORT LEVEL AND NOW BEDBOUND. DC PLAN: POSS HOSPICE, OR RETURN TO PERSONAL SNF.
[2019-06-03 12:04] LABS: ALBUMIN 2.4 g/dL (3.5-5.0); ALBUMIN/GLOBULIN RATIO 0.7 (0.8-2.0); ANION GAP 10.7 mmol/L (8-16); CALCIUM 8.9 mg/dL (8.4-10.2); CREATININE, SERUM 0.9 mg/dL (0.57-1.11); POTASSIUM 3.7 mmol/L (3.5-5.1)
[2019-06-03] MEDS: HYDROCHLOROTHIAZIDE 25 MG TAB PO SCH (12:11)
[2019-06-03] MEDS: BENAZEPRIL HCL 10 MG TAB PO SCH (12:11)
[2019-06-03] MEDS: APIXABAN 5 MG TABLET PO SCH ×2 (12:11→19:59)
[2019-06-03] MEDS: LEVOTHYROXINE SODIUM 75 MCG TAB PO SCH (12:11)
[2019-06-03] MEDS: CEFEPIME 1GM/NS 0.9% 50 ML 50 ML IV SCH (12:12)
--- NOTE | 2019-06-03 12:40 | Consultation ---
DATE OF CONSULTATION: Pulmonary Critical Care Consultation CHIEF COMPLAINT: Leukocytosis and swollen parotid gland. HISTORY OF PRESENT ILLNESS: The patient is an 88-year-old woman. She stays at a halfway facility. She has a history of organic brain syndrome and dementia. She required hospitalization at [facility] in January of 2019. She was treated for urinary tract infection as well as metabolic encephalopathy. She also had a barium swallow at that time, which did not show any aspiration. The patient now returns with worsening obtundation and decreased appetite. In the emergency department, she was found to have a leukocytosis of 35. She also had polyuria as well as a possible infiltrate in her lung. A CT scan of her face showed possible parotitis and adenitis. PAST MEDICAL HISTORY: 1. Atrial fibrillation. 2. Hypertension. 3. Advanced dementia. 4. Recurrent urinary tract infections. PAST SURGICAL HISTORY: 1. Hernia repair. 2. . FAMILY HISTORY: Hypertension. SOCIAL HISTORY: The patient has no history of alcohol or tobacco use. She lives at a halfway facility. REVIEW OF SYSTEMS: The patient does not have fevers. There is some chronic dementia. She has no headache. She is not complaining of any neck pain. She does have some tenderness and pain in the left submandibular area. There was no history of respiratory problems or chest pain. There was no history of nausea or vomiting. PHYSICAL EXAMINATION: VITAL SIGNS: The blood pressure is 140/109, saturation is 92%, and respiratory rate is 18. The pulse is 90. HEENT: Shows no facial swelling or erythema. There is tenderness in the left parotid gland. There are also some enlarged lymph nodes in the cervical area. CARDIAC: Reveals a regular rate and rhythm with a normal S1, S2. LUNGS: Auscultation of lungs shows decreased breath sounds at the bases. ABDOMEN: Soft, nontender. There is no rebound or guarding. EXTREMITIES: Show no leg edema or calf tenderness. NEUROLOGICAL: Shows the patient to be chronically confused. RADIOGRAPHIC DATA: Chest x-ray shows possible left basilar haziness. CT scan of the face shows left parotitis and submandibular sialadenitis. CT of the head shows a focal hypodensity in the left magallanes radiata, which probably represents a subacute infarct. Modified barium swallow from January 26, 2019 shows no aspiration. LABORATORY DATA: White blood cell count is 34.96, and hemoglobin is 13.5. The platelet count is 314. The BUN to creatinine ratio is 33 to 1.14. Other electrolytes are within normal limits. The BNP is 450. TSH is 17.5 on the last admission. IMPRESSION: 1. Sepsis present on admission secondary to parotitis, urinary tract infection and possible pneumonia. 2. Dementia. 3. Metabolic encephalopathy. 4. Atrial fibrillation. 5. Subacute lacunar infarct. 6. Hypertension. 7. Hypothyroidism. 8. Acute on chronic renal failure. PLAN: 1. Continue current antibiotics. 2. Check vanco trough level. 3. Continue to monitor white count and culture results. 4. Repeat chest x-ray tomorrow. 5. Continue to monitor renal function. 6. Continue Synthroid. 7. ENT consultation. Dayron Demarco MD [facility] /[id number]
[2019-06-03] MEDS ORDERED: ONDANSETRON HCL INJ 2MG/ML 2ML 2 MG/ML VIAL IV PRN (13:30)
[2019-06-03] MEDS ORDERED: HYDRALAZINE HCL 20 MG/ML VIAL IV PRN (13:30)
--- NOTE | 2019-06-03 13:37 | NUR ---
Spoke with Boris Plunkett and notified about the consultation.
[2019-06-03] MEDS ORDERED: ACETAMINOPHEN 325 MG/10 ML UDC PEG PRN (13:45)
[2019-06-03] MEDS: VANCOMYCIN 1GM/NS 250 ML 250 ML IV SCH (13:46)
[2019-06-03] MEDS: GUAIFENESIN 200 MG/10 ML UDC PEG SCH ×3 (15:58→23:30)
[2019-06-03] MEDS: PANTOPRAZOLE SOD 40 MG TABEC PO SCH (15:58)
--- NOTE | 2019-06-03 16:19 | Consultation ---
DATE OF CONSULTATION: 06/03/2019 Hospital Consultation HISTORY OF PRESENT ILLNESS: I was kindly asked to see this 88-year-old woman for evaluation of left parotiditis. The patient presented with a 1-day history of left facial swelling as well as coughing up phlegm. History was obtained from the chart and the patient is able to respond. Her history of present illness, past medical history, and past surgical history were reviewed in detail in the chart. PHYSICAL EXAMINATION: There was a moderate amount of cerumen in the right external auditory canal. The visualized portion of the tympanic membrane was normal. The left external auditory canal had a moderate amount of cerumen and the tympanic membrane could not be visualized. There was no postauricular pain, swelling, or tenderness on either side. Intranasal examination was unremarkable. Oral cavity examination was unremarkable. There was no palpable cervical adenopathy; specifically, there was no palpable adenopathy to correlate with the abnormal CT scan findings of adenopathy on the left side. The left parotid gland was swollen with woody edema. There was minimal overlying skin changes. Saliva could not be expressed from Stensen's duct, although the examination was limited due to poor patient's cooperation. IMAGING DATA: CT scan was reviewed and there was no drainable abscess and findings were consistent with left parotiditis. ASSESSMENT: Left parotiditis. PLAN: 1. Continuation of IV antibiotic therapy. 2. No additional otolaryngology medications. MD JALEESA Monterroso/KARISSA /[id number]
[2019-06-03] MEDS: METOPROLOL TARTRATE 25 MG TAB PO SCH (18:40)
[2019-06-03] MEDS: AZELASTINE HCL(OPTH) 6 ML BOTTLE OP SCH (18:40)
--- NOTE | 2019-06-03 18:50 | NUR ---
Report given to overnight cashier nurse. Respiration even and unlabored without SOB. Call light in reach.
[2019-06-03] MEDS: IPRATROPIUM BROMIDE 0.02% 2.5 ML NEB NEB SCH ×2 (19:00→23:00)
--- NOTE | 2019-06-03 19:00 | NUR ---
PATIENT WAS ON 40ML/HR OF FIBERSOURCE AT [facility], PER INSIDE [employer] SALES MARY KLEIN FOR DR SEYMOUR GIVE PT JEVITY 1.2 BOLUSES OF 120 ML Q3H FOR 24 HOURS (WHICH STARTED ON PREVIOUS SHIFT) THEN CHANGE TO 240 ML BOLUSES Q6H UNTIL WE CAN GET A FEEDING PUMP TO RESUME CONTINUOUS FEEDINGS FOR PT. CALLED TO VERIFY IF WE SHOULD ADD H2O BOLUSES FOR PT WELL, AWAITING CALL BACK.
[2019-06-03] MEDS: LATANOPROST(OPTH) 2.5 ML BTL OP SCH (19:59)
[2019-06-03] MEDS: ATORVASTATIN 20 MG TAB PO SCH (19:59)
[2019-06-03] MEDS: MIRTAZAPINE 15 MG TAB PO SCH (19:59)
[2019-06-03] MEDS: DONEPEZIL HCL 5 MG TAB PO SCH (19:59)
[2019-06-03] MEDS: AMLODIPINE BESYLATE 5 MG TAB PO SCH (19:59)
--- NOTE | 2019-06-03 20:04 | NUR ---
Spoke with the daughter Arlyn Callahan and clarified the DNAR status on the SBAR. Daughter wants patient to be in DNR, no medication, no CPR, no intubation.
[2019-06-04] VITALS (8 sets, daily range): BP systolic 99–121; BP diastolic 44–73
[2019-06-04] MEDS: GUAIFENESIN 200 MG/10 ML UDC PEG SCH ×6 (02:12→23:54)
[2019-06-04] MEDS: IPRATROPIUM BROMIDE 0.02% 2.5 ML NEB NEB SCH ×6 (03:15→23:30)
[2019-06-04] MEDS: LEVALBUTEROL HCL SOLN NEBU 0.63 MG/3 ML NEB INH PRN (03:15)
--- NOTE | 2019-06-04 04:06 | NUR ---
CALLED FORESTRY PROFESSOR FOR [facility], AND NOTIFIED PT CURRENTLY HAS ONLY PUT OUT 220 ML URINE WITH 98 ML CURRENTLY IN THE BLADDER AT THIS TIME SINCE 5PM WITH TOTAL OF 250 ML H20 FLUSHED BETWEEN FEEDINGS. EDUCATED LAST LAB LEVELS OF GFR, BUN, CREAT. ORDERED TO START NS AT 100ML/HR IV. WILL CONT TO MONITOR.
[2019-06-04] MEDS: LEVOTHYROXINE SODIUM 75 MCG TAB PO SCH (04:47)
[2019-06-04] MEDS: SODIUM CHLORIDE 0.9% 1000ML 1,000 ML IV SCH ×2 (04:47→14:15)
[2019-06-04 05:28] LABS: BASOPHILS # (AUTO) 0.1 (0.0-0.1); BASOPHILS % 0.3 % (0.0-1.0); EOSINOPHILS # (AUTO) 0.3 (0.0-0.4); EOSINOPHILS % 1.7 % (0.0-6.0); HEMATOCRIT 31.9 % (34.2-44.1); LYMPHOCYTES # (AUTO) 2.1 (1.0-3.2); LYMPHOCYTES % 11.3 % (18.0-39.1); MEAN CORPUSCULAR HEMOGLOBIN 30.4 pg (28-32); MEAN CORPUSCULAR HGB CONC 31.3 g/dL (31-35); MONOCYTES # (AUTO) 1.2 (0.2-0.8); MONOCYTES % 6.2 % (4.4-11.3); NEUTROPHILS # (AUTO) 15.1 (2.1-6.9); NEUTROPHILS % 79.8 % (38.7-80.0); PLATELET COUNT 265 x10e3/uL (140-360); RED BLOOD COUNT 3.29 x10e6/uL (3.6-5.1); RED CELL DISTRIBUTION WIDTH 14.6 % (11.7-14.4)
[2019-06-04 05:49] LABS: ALANINE AMINOTRANSFERASE 36 IU/L (0-55); ALBUMIN 2.2 g/dL (3.5-5.0); ALBUMIN/GLOBULIN RATIO 0.6 (0.8-2.0); ALKALINE PHOSPHATASE 76 IU/L (40-150); ANION GAP 10.7 mmol/L (8-16); BLOOD UREA NITROGEN 32 mg/dL (7-26); BUN/CREATININE RATIO 36 (6-25); CALCIUM 8.4 mg/dL (8.4-10.2); CARBON DIOXIDE 28 mmol/L (22-29); CHLORIDE 104 mmol/L (98-107); CREATININE, SERUM 0.88 mg/dL (0.57-1.11); EST GLOMERULAR FILTRATION RATE > 60 ML/MIN (60-); GLUCOSE 139 mg/dL (74-118); POTASSIUM 3.7 mmol/L (3.5-5.1); SODIUM 139 mmol/L (136-145)
[2019-06-04 06:14] LABS: PHOSPHORUS 2.6 MG/DL (2.3-4.7)
[2019-06-04 06:29] LABS: THYROID STIMULATING HORMONE 37.688 uIU/mL (0.350-4.940)
--- NOTE | 2019-06-04 07:00 | NUR ---
bedside report received. pt is sleeping in bed, no s/s of distress. call light within reach and bed safety in place
[2019-06-04] MEDS: PANTOPRAZOLE SOD 40 MG TABEC PO SCH (07:30)
--- NOTE | 2019-06-04 07:51 | Diagnostic Imaging Report ---
EXAMINATION: CHEST SINGLE (PORTABLE) INDICATION: Pneumonia COMPARISON: Chest x-ray 06/02/2019 FINDINGS: TUBES and LINES: None. LUNGS: Normal lung volumes. Worse left infrahilar/basilar lung haziness No consolidations. PLEURA: No pleural effusion or pneumothorax. HEART AND MEDIASTINUM: The cardiomediastinal silhouette is within normal size limits. Calcified left hilar lymph node. Aortic calcifications. BONES AND SOFT TISSUES: No acute osseous lesion. Soft tissues are unremarkable. UPPER ABDOMEN: No free air under the diaphragm. IMPRESSION: Worse left infrahilar/basilar lung haziness compatible with pneumonia. Recommend follow-up chest radiograph in 6-8 weeks. Signed by: Bryant Andrade DO on 06/04/2019 7:47 AM
--- NOTE | 2019-06-04 08:00 | NUR ---
tube feeding set up through kangaroo pump at ordered 40mL/hr. no water flush ordered
[2019-06-04] MEDS: APIXABAN 5 MG TABLET PO SCH ×2 (08:26→20:26)
[2019-06-04] MEDS: HYDROCHLOROTHIAZIDE 25 MG TAB PO SCH (08:26)
[2019-06-04] MEDS: AMIODARONE HCL 200 MG TAB PO SCH ×2 (08:26→17:34)
[2019-06-04] MEDS: METOPROLOL TARTRATE 25 MG TAB PO SCH ×2 (08:27→17:00)
[2019-06-04] MEDS: MONTELUKAST SODIUM 10 MG TAB PO SCH (08:27)
[2019-06-04] MEDS: SERTRALINE HCL 50 MG TAB PO SCH (08:27)
[2019-06-04] MEDS: BENAZEPRIL HCL 10 MG TAB PO SCH (08:27)
[2019-06-04] MEDS: RIVASTIGMINE TRANSDERMAL 9.5MG/24HOURS PATCH TD SCH (09:04)
[2019-06-04] MEDS: AZELASTINE HCL(OPTH) 6 ML BOTTLE OP SCH ×2 (09:40→17:34)
[2019-06-04] MEDS: MULTIVITAMINS 5 ML LIQUID GT SCH (09:40)
--- NOTE | 2019-06-04 10:10 | NUR ---
Telephonic visit. Pt didn't answer phone. CÉSAR MICHELE Osteopathic Neurologist Spiritual Care Department O: [phone]
[2019-06-04] MEDS: CEFEPIME 1GM/NS 0.9% 50 ML 50 ML IV SCH (11:08)
[2019-06-04] MEDS: VANCOMYCIN 1GM/NS 250 ML 250 ML IV SCH (11:30)
[2019-06-04] MEDS ORDERED: LEVOTHYROXINE SODIUM 50 MCG TAB PO ONE (13:45)
[2019-06-04] MEDS ORDERED: LEVOTHYROXINE SODIUM 25 MCG TABLET PO ONE (14:45)
--- NOTE | 2019-06-04 14:52 | NUR ---
PT IS NOT FROM [facility], LIVES IN A PERSONAL [facility]. DISREGARD DPA INCORRECT INFORMATION. Addendum: 06/04/19 at 1453 by Tosin Flores CM Amended: Links added.
--- NOTE | 2019-06-04 14:58 | NUR ---
Nutrition Intervention Note RD Recommendation(s) for Physician: Plan of Care: RD following, monitoring for tolerance and adequacy Nutrition reason for involvement: TF on admit RD Assessment 06/03: 88 YOF admitted from SNF for possible parotitis, PNA, and UTI. Pt seen today for EN on admit. Pt obtunded and with hx of dementia, unable to obtain hx at this time. Pt does not appear malnourished. Noted pt previously admitted 02/01, noted wt loss of 13% in 5 months. TF initiated this am, tolerance pending. TF rec's provided and placed in chart, RN notified. Will continue to monitor. Principal Problems/Diagnoses: pneumonia, UTI, possible parotitis PMH: organic brain syndrome, dementia, afib, HTN, UTIs GI: LBM 06/03 Skin: no pressure ulcers Labs: 06/03: Na 139, K 3.7, BUN 32, Cr 0.88, Gluc 139, Phos 2.6, Mg 2 Meds: MVI, synthroid, remeron, lipitor, protonix, zofran Ht: 63in Wt: 122 lb BMI: 21.6 kg/m2 IBW: 115 lb Malnutrition Evaluation (06/04/19) The patient does not meet criteria for a specified degree of malnutrition at this time. Will re-evaluate at follow-up as appropriate. Unable to complete assessment / mentation. Nutrition Prescription (Diet Order): Jevity 1.2 with goal rate of 40 ml/hr Estimated Nutritional Needs: 0056-1058 calories/day (22-25 kcal/kg CBW) 83-111 g protein/day (1.5-2 g pro/kg CBW) Diet Adequacy: Not meeting calorie needs, Not meeting protein needs Diet Tolerance: pending, TF initiated today Diet Education Needs Assessment: Diet education not indicated, on TF. Nutrition Care Level: Moderate Nutrition Diagnosis: Pt obtunded with decreased appetite on admit related to current medical conditions and dementia as evidenced by requiring EN on admit. Goal: Patient will meet 75-100% of estimated needs by follow up Progress: N/A Interventions: -Composition, Rate, Route, Recommended Modifications, Collaboration with other providers Monitoring/Evaluation: -Total energy intake, Total protein intake, Formula/Solution, Prescription medication Signed: Dianne Fernandez RD, LD, [facility]
--- NOTE | 2019-06-04 15:18 | Progress Note ---
DATE: SUBJECTIVE: The patient's leukocytosis is improving. She is more awake. She still has some tenderness over her parotid gland. She was evaluated by ENT. PHYSICAL EXAMINATION: VITAL SIGNS: Blood pressure 104/61, saturation is 100% on 2 L. HEENT: Shows no facial swelling or erythema. CARDIAC: Reveals regular rate and rhythm with normal S1, S2. LUNGS: Auscultation of lungs reveals rhonchorous breath sounds bilaterally. There is no wheezing. ABDOMEN: Soft, nontender. There is no rebound or guarding. EXTREMITIES: Show no leg edema or calf tenderness. There is no cyanosis or clubbing. SKIN: Shows no rashes. NEUROLOGIC: Shows no focal abnormalities. LABORATORY DATA: BUN to creatinine ratio is 32 to 0.88. Other electrolytes are within normal limits. The TSH is 37.7. White blood cell count is 18.9, hemoglobin is 10, and the platelet count is 265. IMPRESSION: 1. Severe sepsis secondary to healthcare associated pneumonia, present on admission. 2. Parotitis. 3. Urinary tract infection. 4. Acute kidney injury. 5. Hypothyroidism. 6. Atrial fibrillation. 7. Metabolic encephalopathy. 8. Subacute lacunar infarct. PLAN: 1. Continue current antibiotics and await culture results. 2. Decrease vancomycin to 750 mg IV q.12. 3. Continue to monitor blood counts and electrolytes. 4. Increase Synthroid to 100 mcg a day. 5. Prognosis remains poor. 6. Case discussed with Internal Medicine. Dayron Demarco MD [facility]/KARISSA /[id number]
[2019-06-04] MEDS: PANTOPRAZOLE SODIUM 40 MG SUSPDR.PKT PEG SCH (16:02)
[2019-06-04] MEDS: DONEPEZIL HCL 5 MG TAB PO SCH (20:26)
[2019-06-04] MEDS: ATORVASTATIN 20 MG TAB PO SCH (20:26)
[2019-06-04] MEDS: LATANOPROST(OPTH) 2.5 ML BTL OP SCH (20:26)
[2019-06-04] MEDS: MIRTAZAPINE 15 MG TAB PO SCH (20:27)
[2019-06-04] MEDS: AMLODIPINE BESYLATE 5 MG TAB PO SCH (20:27)
[2019-06-05] VITALS (7 sets, daily range): BP systolic 110–138; BP diastolic 72–99
[2019-06-05] MEDS: GUAIFENESIN 200 MG/10 ML UDC PEG SCH ×6 (00:30→20:45)
[2019-06-05] MEDS: IPRATROPIUM BROMIDE 0.02% 2.5 ML NEB NEB SCH ×6 (03:07→23:50)
[2019-06-05 05:21] LABS: BASOPHILS # (AUTO) 0.1 (0.0-0.1); BASOPHILS % 0.3 % (0.0-1.0); EOSINOPHILS # (AUTO) 0.3 (0.0-0.4); EOSINOPHILS % 2.1 % (0.0-6.0); HEMATOCRIT 32.5 % (34.2-44.1); HEMOGLOBIN 10.3 g/dL (12.0-16.0); LYMPHOCYTES # (AUTO) 1.2 (1.0-3.2); LYMPHOCYTES % 7.6 % (18.0-39.1); MEAN CORPUSCULAR HEMOGLOBIN 29.9 pg (28-32); MEAN CORPUSCULAR HGB CONC 31.7 g/dL (31-35); MEAN CORPUSCULAR VOLUME 94.5 fL (81-99); MONOCYTES # (AUTO) 0.9 (0.2-0.8); MONOCYTES % 5.8 % (4.4-11.3); NEUTROPHILS # (AUTO) 13.3 (2.1-6.9); NEUTROPHILS % 83.4 % (38.7-80.0); PLATELET COUNT 283 x10e3/uL (140-360); RED BLOOD COUNT 3.44 x10e6/uL (3.6-5.1); RED CELL DISTRIBUTION WIDTH 14.5 % (11.7-14.4)
[2019-06-05] MEDS: LEVOTHYROXINE SODIUM 100 MCG TAB PO SCH (05:27)
[2019-06-05 05:44] LABS: ALANINE AMINOTRANSFERASE 39 IU/L (0-55); ALBUMIN 2.4 g/dL (3.5-5.0); ALBUMIN/GLOBULIN RATIO 0.7 (0.8-2.0); ALKALINE PHOSPHATASE 91 IU/L (40-150); ANION GAP 11.5 mmol/L (8-16); BLOOD UREA NITROGEN 19 mg/dL (7-26); BUN/CREATININE RATIO 24 (6-25); CALCIUM 8.3 mg/dL (8.4-10.2); CARBON DIOXIDE 26 mmol/L (22-29); CHLORIDE 103 mmol/L (98-107); CREATININE, SERUM 0.78 mg/dL (0.57-1.11); EST GLOMERULAR FILTRATION RATE > 60 ML/MIN (60-); GLUCOSE 159 mg/dL (74-118); POTASSIUM 3.5 mmol/L (3.5-5.1); SODIUM 137 mmol/L (136-145)
--- NOTE | 2019-06-05 05:58 | Diagnostic Imaging Report ---
EXAMINATION: CHEST SINGLE (PORTABLE) INDICATION: f/u Bronchitis, possible PNA vs Atelectasis, +hx CHF COMPARISON: Chest x-ray 06/04/2019 FINDINGS: TUBES and LINES: None. LUNGS: Moderate lung volumes. Slightly increased left retrocardiac opacity. Central vascular congestion without pulmonary edema. PLEURA: Possible trace left pleural effusion. No pneumothorax. HEART AND MEDIASTINUM: The cardiomediastinal silhouette is within normal size limits. Calcified left hilar lymph node. Aortic calcifications. BONES AND SOFT TISSUES: No acute osseous lesion. Soft tissues are unremarkable. UPPER ABDOMEN: No free air under the diaphragm. IMPRESSION: Left retrocardiac opacity is slightly increased and may represent pneumonia in the appropriate clinical setting. Signed by: Dr. Erica Flores MD on 06/05/2019 5:55 AM
[2019-06-05] MEDS ORDERED: LEVOTHYROXINE SODIUM 75 MCG TAB PO SCH (06:00)
[2019-06-05] MEDS ORDERED: VANCOMYCIN 750MG/NS 150ML IVPB 150 ML IV SCH (06:00)
--- NOTE | 2019-06-05 07:10 | NUR ---
PATIENT IS ALERT TO SELF AND IS HARD OF HEARING- PATIENT IS IN STABLE CONDITION WITH NO S/S OF RESPIRATORY DISTRESS. NO PAIN INDICATED. TELEMETRY APPLIED. TUBE FEEDINGS INFUSING. PATIENT'S RIGHT FOREARM/HAND IS CONTRACTED- SWELLING NOTED TO RIGHT HAND. DIAPER APPLIED. PATIENT RECEIVING A BED BATHE BY PCT'S AT THE MOMENT. BED ALARM APPLIED. CALL LIGHT IS WITHIN REACH, PATIENT INSTRUCTED TO CALL FOR ASSISTANCE NEEDED.
[2019-06-05] MEDS: MULTIVITAMINS 5 ML LIQUID GT SCH (08:35)
[2019-06-05] MEDS: METOPROLOL TARTRATE 25 MG TAB PO SCH ×2 (08:35→16:03)
[2019-06-05] MEDS: MONTELUKAST SODIUM 10 MG TAB PO SCH (08:35)
[2019-06-05] MEDS: HYDROCHLOROTHIAZIDE 25 MG TAB PO SCH (08:35)
[2019-06-05] MEDS: AZELASTINE HCL(OPTH) 6 ML BOTTLE OP SCH ×2 (08:35→16:04)
[2019-06-05] MEDS: BENAZEPRIL HCL 10 MG TAB PO SCH (08:35)
[2019-06-05] MEDS: AMIODARONE HCL 200 MG TAB PO SCH ×2 (08:35→16:03)
[2019-06-05] MEDS: APIXABAN 5 MG TABLET PO SCH ×2 (08:35→20:45)
[2019-06-05] MEDS: PANTOPRAZOLE SODIUM 40 MG SUSPDR.PKT PEG SCH ×2 (08:35→16:00)
[2019-06-05] MEDS: RIVASTIGMINE TRANSDERMAL 9.5MG/24HOURS PATCH TD SCH (08:36)
[2019-06-05] MEDS: SERTRALINE HCL 50 MG TAB PO SCH (08:36)
--- NOTE | 2019-06-05 09:38 | NUR ---
ASSESSMENT: Spiritual concern Telephone call with pt's daughter, Arlyn ([phone]). Pt's daughter overwhelmed with decisions concerning mother's illness. Pt's daughter states she has "become my mother's advocate." Pt's daughter states she has been thinking about hospice but would like more information. Pt's daughter states she wants the best for her mother and for her to "enjoy her last days." Intervention: Provided unhurried empathic listening. Facilitated illness review. Provided prayer and information on how to reach ic designer standard cells, if needed. Outcome: Pt's daughter expressed appreciation for support. Will follow up with CM. CÉSAR MICHELE Administrative Support Manager Spiritual Care Department O: [phone]
[2019-06-05] MEDS: CEFEPIME 1GM/NS 0.9% 50 ML 50 ML IV SCH (12:12)
--- NOTE | 2019-06-05 12:16 | NUR ---
Called and spoke with pt's daughter Arlyn [phone] regarding SNF eval. She states that she does not want her mom to go to a SNF. Said her mom has previously gone to SNF and did not do very well there. States pt is currently on service with [facility], but is currently on hold since the [facility] pt is at currently does not allow HH/hospice companies to visit. Arlyn states that her plan is for her mom to return to [facility] (even if HH is not allowed in at time of dc). States she has also been thinking about possibly signing pt up for hospice. States she has seen [facility] at the [facility] and would like to speak to someone for information. Arlyn said it was ok for Pauline with [facility] to call her. gave Pauline Stoddard's number to reach out and answer any questions she may have.
--- NOTE | 2019-06-05 16:41 | Progress Note ---
DATE: SUBJECTIVE: Blood cultures showed 1/2 bottles with Staph aureus. The patient is more alert after receiving intravenous fluids and hydration. PHYSICAL EXAMINATION: VITAL SIGNS: The patient is afebrile. The saturation is 100%. HEENT: Shows no facial swelling or erythema. CARDIAC: Reveals a regular rate and rhythm with normal S1, S2. LUNGS: Auscultation of lungs shows decreased breath sounds at the bases. There is no wheezing. ABDOMEN: Soft, nontender. There is no rebound or guarding. EXTREMITIES: Show no leg edema or calf tenderness. There is no cyanosis or clubbing. SKIN: Shows no rashes. LABORATORY DATA: BUN to creatinine ratio is 19 to 0.78. Glucose is 159. Albumin is 2.4 and white blood cell count is 15.99 and hemoglobin is 10.3. The platelet count is 283. IMPRESSION: 1. Staph aureus bacteremia with sepsis, present on admission. 2. Parotitis and adenitis. 3. Healthcare-associated pneumonia, present on admission. 4. Urinary tract infection. 5. Acute kidney injury. 6. Hypothyroidism. 7. Metabolic encephalopathy. PLAN: 1. Continue current antibiotics. 2. The patient will need echocardiogram for the Staph aureus bacteremia. She will also need ID consultation. Continued IV antibiotics. 3. PICC line. 4. Continue Synthroid. 5. Continue IV fluids. 6. Continue to monitor blood counts and creatinine. Dayron Demarco MD [facility] /[id number]
[2019-06-05] MEDS: VANCOMYCIN 750MG/NS 150ML IVPB 150 ML IV SCH (17:55)
--- NOTE | 2019-06-05 19:00 | NUR ---
RECEIVED REPORT FROM [facility] NURSE. ALERT AND ORIENTED TO PERSON. RESTING IN BED. 2 L/MIN NC. SWELLING TO R HAND AND CONTRACTION OF R ARM. L WRIST IV SALINE LOCK. R UA IV INFUSING VANCOMYCIN AT 10ML/HR. NO SIGNS INFILTRATION. PEG TUBE INFUSING JEVITY 1.2 AT 40ML/HR. NO ADVERSE SIGNS. BED LOCKED AND IN LOW POSITION. BED ALARM ON. SR UPX2. CALL LIGHT WITHIN REACH. Addendum: 06/06/19 at 0231 by Dolores Nichols RN PLEASE INCLUDE PATIENT CURRENTLY ON CONTACT ISOLATION.
[2019-06-05] MEDS: LEVALBUTEROL HCL SOLN NEBU 0.63 MG/3 ML NEB INH PRN ×2 (19:05→23:50)
--- NOTE | 2019-06-05 19:09 | NUR ---
PATIENT IS IN STABLE CONDITION WITH NO S/S OF RESPIRATORY DISTRESS. NO PAIN INDICATED. TELEMETRY APPLIED. 02 APPLIED. IV ANTIBIOTIC INFUSING. PATIENT PLACED ON HER BACK AT THIS TIME. DIAPER APPLIED; ALLEVYN APPLIED TO SACRUM. BED ALARM APPLIED. CALL LIGHT IS WITHIN REACH, PATIENT INSTRUCTED TO CALL FOR ASSISTANCE NEEDED. BEDSIDE SHIFT REPORT GIVEN TO ONCOMING NURSES.
[2019-06-05] MEDS: AMLODIPINE BESYLATE 5 MG TAB PO SCH (20:45)
[2019-06-05] MEDS: ATORVASTATIN 20 MG TAB PO SCH (20:45)
[2019-06-05] MEDS: MIRTAZAPINE 15 MG TAB PO SCH (20:45)
[2019-06-05] MEDS: DONEPEZIL HCL 5 MG TAB PO SCH (20:45)
[2019-06-05] MEDS: LATANOPROST(OPTH) 2.5 ML BTL OP SCH (21:00)
--- NOTE | 2019-06-05 21:17 | Consultation ---
DATE OF CONSULTATION: HISTORY OF PRESENT ILLNESS: Ms. Callahan, who is an 88-year-old white female from skilled care facility with organic brain syndrome, dementia, does not provide any meaningful information, history of atrial fibrillation, hypertension, recurrent UTI, hernia repair, , comes into the hospital for worsening mental status, came to the emergency room where she was evaluated. Her white count was elevated. Her urine showed infection, so she was admitted. The patient had a CAT scan of the face, which showed parotitis and adenitis. The patient is being admitted. The patient really does not provide any meaningful information. History was taken mainly from the chart. PAST MEDICAL HISTORY: Atrial fibrillation, hypertension, dementia, bacteria, UTI. PAST SURGICAL HISTORY: Hernia repair, . ALLERGIES: NKA. SOCIAL HISTORY: She is from [facility]. No smoking or drug abuse or alcohol abuse. FAMILY HISTORY: Could not be obtained. REVIEW OF SYSTEMS: Could not be obtained. PHYSICAL EXAMINATION: GENERAL: She is currently alert, comfortable, does not seem to be in acute distress. VITAL SIGNS: Stable, currently afebrile. HEENT: Normocephalic, nonicteric. She does have some left submandibular swelling. NECK: Supple. No JVD. CHEST: Few crackles. clear bilaterally COR: : S1 and S2. No S3, S4, or murmur. ABDOMEN: Soft. Bowel sounds present. EXTREMITIES: No edema. LABORATORY DATA: Her blood cultures are showing Staphylococcus aureus. Her white count is 15.9, when she first came was 34.9. Hemoglobin 13 and hematocrit 41. Her sodium 137, potassium 3.5 with a creatinine when she first came 1.1, it came down to 0.78. IMPRESSION: 1. Sepsis on admission secondary to Staphylococcus aureus bacteremia. Agree with vancomycin. We will get a PICC line anticipation on IV antibiotic for extended time. 2. Peritonitis, probably MR assay. 3. admission. Recommend to obtain echocardiogram to rule out endocarditis. 4. Acute kidney injury seems to be better . 5. Dementia. 6. Recheck blood cultures with followup; weekly CBC, weekly chem panel, weekly vancomycin trough. We will adjust antibiotic depending on culture and sensitivity. We will follow with you. MD BRADY Ingram/KARISSA /[id number]
--- NOTE | 2019-06-05 23:10 | NUR ---
ALTERNATING PRESSURE APPLIED TO BED.
[2019-06-06] VITALS (8 sets, daily range): BP systolic 107–136; BP diastolic 49–85
[2019-06-06] MEDS: GUAIFENESIN 200 MG/10 ML UDC PEG SCH ×6 (03:45→23:53)
--- NOTE | 2019-06-06 03:50 | NUR ---
DISCONTINUED L WRIST IV. NO SIGNS OF INFILTRATION. CATHETER INTACT.
[2019-06-06] MEDS: IPRATROPIUM BROMIDE 0.02% 2.5 ML NEB NEB SCH ×6 (04:10→23:00)
[2019-06-06] MEDS: LEVALBUTEROL HCL SOLN NEBU 0.63 MG/3 ML NEB INH PRN ×2 (04:10→20:00)
[2019-06-06 05:32] LABS: BASOPHILS # (AUTO) 0.1 (0.0-0.1); BASOPHILS % 0.4 % (0.0-1.0); EOSINOPHILS # (AUTO) 0.4 (0.0-0.4); EOSINOPHILS % 3.2 % (0.0-6.0); HEMATOCRIT 31.6 % (34.2-44.1); HEMOGLOBIN 10.1 g/dL (12.0-16.0); LYMPHOCYTES # (AUTO) 1.3 (1.0-3.2); LYMPHOCYTES % 9.8 % (18.0-39.1); MEAN CORPUSCULAR HEMOGLOBIN 30.1 pg (28-32); MONOCYTES # (AUTO) 0.9 (0.2-0.8); MONOCYTES % 6.5 % (4.4-11.3); NEUTROPHILS # (AUTO) 10.3 (2.1-6.9); NEUTROPHILS % 79.2 % (38.7-80.0); PLATELET COUNT 282 x10e3/uL (140-360); RED BLOOD COUNT 3.36 x10e6/uL (3.6-5.1); RED CELL DISTRIBUTION WIDTH 14.4 % (11.7-14.4)
--- NOTE | 2019-06-06 06:09 | NUR ---
SPOKE WITH MD AGUILERA CONCERNING CRITICAL VANCOMYCIN TROUGH. NO CHANGES MADE TO CURRENT VANCOMYCIN ORDER, ORDERS RECEIVED TO GIVE VANCOMYCIN ORDERED.
[2019-06-06 06:42] LABS: ALANINE AMINOTRANSFERASE 28 IU/L (0-55); ALBUMIN 2.1 g/dL (3.5-5.0); ALBUMIN/GLOBULIN RATIO 0.6 (0.8-2.0); ALKALINE PHOSPHATASE 78 IU/L (40-150); ANION GAP 11.1 mmol/L (8-16); BLOOD UREA NITROGEN 17 mg/dL (7-26); BUN/CREATININE RATIO 21 (6-25); CALCIUM 8.8 mg/dL (8.4-10.2); CARBON DIOXIDE 28 mmol/L (22-29); CHLORIDE 102 mmol/L (98-107); EST GLOMERULAR FILTRATION RATE > 60 ML/MIN (60-); GLUCOSE 149 mg/dL (74-118); POTASSIUM 3.1 mmol/L (3.5-5.1); SODIUM 138 mmol/L (136-145)
[2019-06-06] MEDS: LEVOTHYROXINE SODIUM 100 MCG TAB PO SCH (06:45)
--- NOTE | 2019-06-06 06:45 | NUR ---
REPLACED TUBE FEEDING AND TUBING. INFUSING 40ML/HR JEVITY 1.2 WITH 20ML/HR NS FLUSH. NO ADVERSE SIGNS.
[2019-06-06] MEDS: VANCOMYCIN 750MG/NS 150ML IVPB 150 ML IV SCH ×2 (06:57→18:07)
--- NOTE | 2019-06-06 07:00 | NUR ---
BEDSIDE REPORT GIVEN TO DAYSVTFT NURSE. ALERT AND ORIENTED TO PERSON. RESTING IN BED. R AC INFUSING VANCOMYCIN 100ML/HR. NO SIGNS OF INFILTRATION. 40 ML/HR JEVITY 1.2 INFUSING AT 40ML/HR TO PEG TUBE. NO ADVERSE SIGNS. BRIEF CDI. SR UPX2. BED ALARM ON. BED LOCKED AND IN LOW POSITION. CALL LIGHT WITHIN REACH.
--- NOTE | 2019-06-06 07:10 | NUR ---
PATIENT IS NONVERBAL BUT RESPONSE TO PHYSICAL TOUCH, EYES OPEN. PATIENT IN STABLE CONDITION WITH NO S/S OF RESPIRATORY DISTRESS. NO PAIN INDICATED. TELEMETRY APPLIED. DIAPER AND ALLEVYN APPLIED. BED ALARM APPLIED. CALL LIGHT IS WITHIN REACH, PATIENT INSTRUCTED TO CALL FOR ASSISTANCE NEEDED.
[2019-06-06] MEDS: METOPROLOL TARTRATE 25 MG TAB PO SCH ×2 (09:03→16:31)
[2019-06-06] MEDS: AZELASTINE HCL(OPTH) 6 ML BOTTLE OP SCH ×2 (09:03→16:31)
[2019-06-06] MEDS: RIVASTIGMINE TRANSDERMAL 9.5MG/24HOURS PATCH TD SCH (09:03)
[2019-06-06] MEDS: MONTELUKAST SODIUM 10 MG TAB PO SCH (09:03)
[2019-06-06] MEDS: MULTIVITAMINS 5 ML LIQUID GT SCH (09:03)
[2019-06-06] MEDS: SERTRALINE HCL 50 MG TAB PO SCH (09:03)
[2019-06-06] MEDS: AMIODARONE HCL 200 MG TAB PO SCH ×2 (09:03→16:31)
[2019-06-06] MEDS: HYDROCHLOROTHIAZIDE 25 MG TAB PO SCH (09:03)
[2019-06-06] MEDS: APIXABAN 5 MG TABLET PO SCH ×2 (09:03→20:33)
[2019-06-06] MEDS: PANTOPRAZOLE SODIUM 40 MG SUSPDR.PKT PEG SCH ×2 (09:03→16:31)
[2019-06-06] MEDS: BENAZEPRIL HCL 10 MG TAB PO SCH (09:03)
--- NOTE | 2019-06-06 09:59 | Progress Note ---
DATE: SUBJECTIVE: This is an 88-year-old female with complicated past medical history. She is diagnosed with MRSA bacteremia and left-sided parotiditis, currently comfortable in bed, not much interaction with me. Discussed with staff. REVIEW OF SYSTEMS: Unable to obtain review of systems secondary to the patient's medical condition; however, no new events or reports from nursing staff since last night besides the fact the blood culture came back with MRSA. OBJECTIVE: VITAL SIGNS: Temperature is 98.7, pulse is 76, respirations 20, and blood pressure 136/85. GENERAL: Comfortable in bed, not much interaction with me during my visit. CV: S1 and S2. CHEST: Equal expansion. Poor effort. No acute distress. ABDOMEN: Soft. No distention. Bowel sounds positive. HEENT: Moist with left-sided parotiditis. No pale. EXTREMITIES: Weak with no edema. LABORATORY STUDIES: White blood cells 13.01 from 15.99, actually coming down from originally 34.96; hemoglobin is 10.1; and platelet count of 282. Sodium 138, potassium 3.1, creatinine 0.8. Vancomycin trough was 19 today. Serology; influenza A and B antigen negative. Microbiology; blood culture from 06/02/2019, shows MRSA. Urine culture from 06/03/2019, is negative in 48 hours and recheck blood culture from 06/05/2019, is pending. RADIOLOGY STUDIES: Chest x-ray on 06/05/2019, shows left retrocardiac opacity, slightly increased and may represent pneumonia in appropriate clinical setting. ASSESSMENT AND PLAN: An 88-year-old female with: 1. Methicillin-resistant Staphylococcus aureus bacteremia. 2. Status post echo on 06/02/2019, showing 65% to 70% left ventricular ejection fraction. 3. Acute kidney injury, improved. 4. Hyperlipidemia. 5. Depression. 6. Overall very weak. The patient is currently on vancomycin IV with a trough as mentioned above. Per my discussion with the staff, daughters thinking about comfort care/hospice care. Discussed with Dr. Pressley in detail. Please refer to chart for more information. Continue with the current care at this point. Further management of this patient is based on daily findings on laboratory and physical examination and the patient's family decision on the course of treatment. Dictated by Edilson Ponce PA-C (Al) MD DAVID Ingram/KARISSA /[id number]
[2019-06-06] MEDS ORDERED: POTASSIUM CHLORIDE 20MEQ/15ML UDC NG SCH (11:30)
--- NOTE | 2019-06-06 12:47 | Diagnostic Imaging Report ---
EXAMINATION: CHEST XRAY LINE PLACEMENT INDICATION: Line placement COMPARISON: Chest radiograph 06/02/2019 FINDINGS: LINES/TUBES:Interval placement of left PICC line which terminates at the superior cavoatrial junction. LUNGS:The lungs are moderately inflated. Mild left basilar patchy opacity. High density left hilar nodular opacity measures 1.7 cm, stable dating back to at least 12/29/2017. PLEURA:No pleural effusion or pneumothorax. MEDIASTINUM:The cardiomediastinal silhouette appears unchanged in size and shape. Atherosclerotic calcifications of the thoracic aorta. BONES/SOFT TISSUES:No acute osseous injury. ABDOMEN:No free air under the diaphragm. IMPRESSION: Left PICC line terminates at the superior cavoatrial junction. Mild left basilar patchy opacity may represent subsegmental atelectasis versus superimposed aspiration or pneumonia in the proper clinical setting. Signed by: Haley Langston MD on 06/06/2019 12:44 PM
--- NOTE | 2019-06-06 13:00 | NUR ---
RECEIVED CALL FROM PT'S DTRSILVIA TO DISCUSS HER MOTHER'S DISCHARGE PLAN. STATES SHE WAS TOLD BY THE PERSONAL INTERMEDIATE THEY WOULD NOT BE RESPONSIBLE FOR HER MOTHER'S IV ABX. [facility] TRADITIONS ALSO INFORMED HER THE NURSES WOULD ONLY VISIT THE PT WEEKLY TO DO DRESSING CHANGE. EXPLAINED THE PROCESS TO THE DTR. VERBALIZED UNDERSTANDING. CONFERENCE CALL TO TASHIA POLLACK TO DISCUSS SNF AN OPTION. PROVIDED CHOICE: [facility]YARDS AND [facility]OC[facility]ARE. DTR STATES SHE AGAIN WANTED TO SPEAK W THE [facility] FOR CLAR[facility]. BRE AND TASHIA VERBALIZED UNDERSTANDING AND WILL AWAIT CALL BACK.
--- NOTE | 2019-06-06 14:08 | NUR ---
RECEIVED CALL BACK FROM SILVIA; PT'S DTR. STATES SHE WILL SPEAK W THE DOC ABOUT GIVING HER A FEW MORE DOSES OF THE ABX IV THEN DC BACK TO [facility] ON PO ABX. STATES SHE WOULD ALSO PROBABLY GO WITH THE HOSPICE OPTION; TRADITIONS. STATES SHE DID NOT WANT HER MOM TO BE A PIN CUSHION AND MAKE HER CONTINUE TO SUFFER. CM VERBALIZED UNDERSTANDING. CALL TO [facility] TO DISCUSS PT CHOICE W BEDSIDE RN, JIM. SW NOTIFIED.
--- NOTE | 2019-06-06 17:06 | Progress Note ---
DATE: SUBJECTIVE: The patient was seen by Infectious Disease yesterday. She was continued on the IV vancomycin. The family has subsequently opted for palliative care and less aggressive measures. PHYSICAL EXAMINATION: VITAL SIGNS: The blood pressure is 117/63 and the saturation is 100% on 2 L. HEENT: Shows no facial swelling or erythema. CARDIAC: Reveals regular rate and rhythm with normal S1 and S2. LUNGS: Auscultation of lungs reveals clear breath sounds bilaterally. There is no wheezing. ABDOMEN: Soft, nontender. There is no rebound or guarding. EXTREMITIES: Show no leg edema or calf tenderness. There is no cyanosis or clubbing. LABORATORY DATA: White blood cell count is 13, hemoglobin is 10.1. The platelet count is 282. The BUN to creatinine ratio is normal. The other electrolytes are within normal limits. The albumin is 2.1. IMPRESSION: 1. Staph aureus bacteremia secondary to parotiditis. 2. Healthcare associated pneumonia, present on admission. 3. Urinary tract infection. 4. Acute kidney injury. 5. Metabolic encephalopathy. 6. Hypothyroidism. PLAN: 1. Continue current antibiotics. 2. Continue Synthroid. 3. Palliative care and possible hospice. MD THERON Vasquez/KARISSA /[id number]
--- NOTE | 2019-06-06 19:32 | NUR ---
PATIENT TRANSFERRED TO [place] [address] ROOM 286 FROM [facility] RM 188. PATIENT IS IN STABLE CONDITION WITH NO S/S OF RESPIRATORY DISTRESS. NO PAIN INDICATED. TELEMETRY APPLIED. 02 APPLIED AT 2L NC. IV ANTIBIOTIC INFUSING. . DIAPER APPLIED. BED ALARM APPLIED. CALL LIGHT IS WITHIN REACH, PATIENT INSTRUCTED TO CALL FOR ASSISTANCE NEEDED. BEDSIDE SHIFT REPORT GIVEN TO ONCOMING NURSES.
[2019-06-06] MEDS: DONEPEZIL HCL 5 MG TAB PO SCH (20:33)
[2019-06-06] MEDS: AMLODIPINE BESYLATE 5 MG TAB PO SCH (20:33)
[2019-06-06] MEDS: MIRTAZAPINE 15 MG TAB PO SCH (20:33)
[2019-06-06] MEDS: ATORVASTATIN 20 MG TAB PO SCH (20:33)
[2019-06-06] MEDS: LATANOPROST(OPTH) 2.5 ML BTL OP SCH (20:33)
[2019-06-07] VITALS (9 sets, daily range): BP systolic 87–168; BP diastolic 53–94
[2019-06-07] MEDS: IPRATROPIUM BROMIDE 0.02% 2.5 ML NEB NEB SCH ×6 (03:35→23:30)
[2019-06-07] MEDS: GUAIFENESIN 200 MG/10 ML UDC PEG SCH ×6 (04:01→23:14)
[2019-06-07] MEDS: LEVOTHYROXINE SODIUM 100 MCG TAB PO SCH (05:13)
[2019-06-07] MEDS: VANCOMYCIN 750MG/NS 150ML IVPB 150 ML IV SCH ×2 (05:13→18:31)
[2019-06-07 05:52] LABS: BASOPHILS % 0.3 % (0.0-1.0); EOSINOPHILS # (AUTO) 0.5 (0.0-0.4); EOSINOPHILS % 3.7 % (0.0-6.0); HEMATOCRIT 30.3 % (34.2-44.1); HEMOGLOBIN 9.7 g/dL (12.0-16.0); LYMPHOCYTES # (AUTO) 0.9 (1.0-3.2); LYMPHOCYTES % 6.2 % (18.0-39.1); MEAN CORPUSCULAR VOLUME 93.8 fL (81-99); MONOCYTES # (AUTO) 0.9 (0.2-0.8); MONOCYTES % 5.9 % (4.4-11.3); NEUTROPHILS % 83.1 % (38.7-80.0); PLATELET COUNT 293 x10e3/uL (140-360); RED BLOOD COUNT 3.23 x10e6/uL (3.6-5.1); RED CELL DISTRIBUTION WIDTH 14.6 % (11.7-14.4)
[2019-06-07 06:15] LABS: ANION GAP 9.3 mmol/L (8-16); BLOOD UREA NITROGEN 16 mg/dL (7-26); BUN/CREATININE RATIO 23 (6-25); CALCIUM 8.4 mg/dL (8.4-10.2); CARBON DIOXIDE 29 mmol/L (22-29); CHLORIDE 101 mmol/L (98-107); CREATININE, SERUM 0.71 mg/dL (0.57-1.11); EST GLOMERULAR FILTRATION RATE > 60 ML/MIN (60-); GLUCOSE 150 mg/dL (74-118); MAGNESIUM 1.6 MG/DL (1.3-2.1); POTASSIUM 3.3 mmol/L (3.5-5.1); SODIUM 136 mmol/L (136-145)
--- NOTE | 2019-06-07 07:05 | NUR ---
PATIENT IS IN STABLE CONDITION WITH NO S/S OF RESPIRATORY DISTRESS. NO PAIN INDICATED. DIAPER APPLIED. BED ALARM APPLIED. CALL LIGHT IS WITHIN REACH, PATIENT INSTRUCTED TO CALL FOR ASSISTANCE NEEDED.
[2019-06-07] MEDS: LEVALBUTEROL HCL SOLN NEBU 0.63 MG/3 ML NEB INH PRN ×2 (07:30→19:42)
[2019-06-07] MEDS: SERTRALINE HCL 50 MG TAB PO SCH (09:19)
[2019-06-07] MEDS: AMIODARONE HCL 200 MG TAB PO SCH ×2 (09:19→17:15)
[2019-06-07] MEDS: METOPROLOL TARTRATE 25 MG TAB PO SCH ×2 (09:19→17:16)
[2019-06-07] MEDS: BENAZEPRIL HCL 10 MG TAB PO SCH (09:19)
[2019-06-07] MEDS: MULTIVITAMINS 5 ML LIQUID GT SCH (09:19)
[2019-06-07] MEDS: MONTELUKAST SODIUM 10 MG TAB PO SCH (09:19)
[2019-06-07] MEDS: PANTOPRAZOLE SODIUM 40 MG SUSPDR.PKT PEG SCH ×2 (09:19→17:15)
[2019-06-07] MEDS: APIXABAN 5 MG TABLET PO SCH ×2 (09:20→20:33)
[2019-06-07] MEDS: AZELASTINE HCL(OPTH) 6 ML BOTTLE OP SCH ×2 (09:20→17:15)
[2019-06-07] MEDS: HYDROCHLOROTHIAZIDE 25 MG TAB PO SCH (09:20)
--- NOTE | 2019-06-07 09:25 | NUR ---
CALL TO JONNATHAN @ [facility] TO DISCUSS PT RETURNING TO THE [facility]. JONNATHAN IS A HOSPICE NURSE AND STATES SHE WILL MANAGE THE HOSPICE CARE OF ANY PT'S AT THE [facility]. STATES SHE WORKS [facility] ALREADY AND THAT WOULD NOT BE A PROBLEM. STATES SHE WOULD NEED TO COORDINATE Colby ALVAREZ ON GETTING DME AND MEDS PRIOR TO THE PT DISCHARGING. PT LIVES IN PERSONAL [facility]: [facility] [address] [place] [address] EXECUTIVE ADMIN: JONNATHAN [phone] FAX [phone] CALL TO MALINDA TO GET PLAN FOR THE PT TO DC BACK TO [facility] TODAY. WILL AWAIT CALL BACK.
[2019-06-07] MEDS ORDERED: POTASSIUM CHLORIDE 20MEQ/15ML UDC NG ONE (11:15)
--- NOTE | 2019-06-07 11:27 | NUR ---
Nutrition Intervention Note RD Recommendation(s) for Physician: - Continue current TF regimen. - RD sign off care as pt transitioned to hospice. Plan of Care: RD following, monitoring for tolerance and adequacy Nutrition reason for involvement: Follow up RD Assessment 06/06: Following up. Per GILBERT Garcia, pt is tolerating Jevity 1.2 @40mL/hr with no residual. Plan to d/c today on hospice care. RD sign off. 06/03: 88 YOF admitted from SNF for possible parotitis, PNA, and UTI. Pt seen today for EN on admit. Pt obtunded and with hx of dementia, unable to obtain hx at this time. Pt does not appear malnourished. Noted pt previously admitted 02/01, noted wt loss of 13% in 5 months. TF initiated this am, tolerance pending. TF rec's provided and placed in chart, RN notified. Will continue to monitor. Principal Problems/Diagnoses: pneumonia, UTI, possible parotitis PMH: organic brain syndrome, dementia, afib, HTN, UTIs GI: Abdomen flat, soft, non-tender, +BM Skin: no pressure ulcers Labs: 06/06: Glucose 150 H Meds: eliquis, esidrix, protonix, MVI, lopressor, vancomycin, synthroid Ht: 63in Wt: 122 lb BMI: 21.6 kg/m2 IBW: 115 lb Malnutrition Evaluation (06/04/19) Unable to complete assessment 2/2 mentation. Nutrition Prescription (Diet Order): Jevity 1.2 with goal rate of 40 ml/hr Estimated Nutritional Needs: [id number] calories/day (22-25 kcal/kg CBW) 66-83 g protein/day (1.2-1.5 g pro/kg CBW) Diet Adequacy: meeting 95% calorie needs, meeting 80% protein needs Diet Tolerance: Tolerating EN Diet Education Needs Assessment: Diet education not indicated, on TF. Nutrition Care Level: Low Nutrition Diagnosis: Pt obtunded with decreased appetite on admit related to current medical conditions and dementia as evidenced by requiring EN on admit. Goal: Patient will meet 75-100% of estimated needs by follow up Progress: Goal met Interventions: -Composition, Rate, Route Monitoring/Evaluation: -Total energy intake, Total protein intake, Formula/Solution, Weight change Signed: Ana Paula Coronel, MS, RD, LD
--- NOTE | 2019-06-07 11:34 | Progress Note ---
DATE: SUBJECTIVE: The patient was seen and evaluated. Available labs and notes reviewed. Discussed with staff and discussed with Drew, the nurse practitioner, with the attending team. REVIEW OF SYSTEMS: Unable to obtain review of systems secondary to the patient's medical condition. MEDICATIONS: Medication list reviewed as far as Infectious Disease point of view, the patient is on vancomycin IV. LABORATORY STUDIES: White blood cells 14.46, hemoglobin 9.7, platelet 293. Sodium 136, potassium 3.3, creatinine 0.71. MICROBIOLOGY STUDIES: Blood culture on 06/01 MRSA, recheck blood culture on 06/04 is negative 24 hours. RADIOLOGY STUDIES: No new radiology studies available. The patient is status post left upper extremity PICC line placement. PHYSICAL EXAMINATION: VITAL SIGNS: Temperature is 97.9, pulse 61, respirations 16, blood pressure 100/67. GENERAL: Comfortable in bed, no acute distress. Awake, not much interaction verbally. HEENT: Moist. No pallor. No JVD. CV: S1-S2. CHEST: Equal expansion. Decreased breath sounds. No acute distress. ABDOMEN: Soft. No tenderness. No distention. EXTREMITIES: Weak. No edema. ASSESSMENT AND PLAN: 1. Methicillin-resistant Staphylococcus aureus bacteremia with recheck blood culture negative. I have discussed with the attending team, nurse practitioner, Drew. Family has changed their mind from IV to p.o. antibiotics. 2. Left parotiditis. 3. Atrial fibrillation. 4. Chronic obstructive pulmonary disease. 5. Dementia. 6. Debility/bed-bound. 7. Prescription in chart for doxy p.o. for six weeks in case if family wants to go with p.o. antibiotics. Thank you for this dictation. We will follow with you. Dictated by Edilson Ponce PA-C (Al) MD DAVID Ingram/KARISSA /[id number]
--- NOTE | 2019-06-07 13:43 | NUR ---
SPOKE WITH DAUGHTER, HERE AT BEDSIDE. SHE SIGNED CHOICE FOR [facility]. AND SIGNED IMM FILED IN CHART EDUCATED AND LEFT COPY AT BESIDE FOR FURTHER QUESTIONS. FAXED CLINICALS TO BUILDING THEY ARE CHECKING DAYS, SHE MAY BE LINITED ON DAYS AVAILABLE. AT THIS POINT THEY ARE SHOWING 27 DAYS. NEEDS 6 WEEKS OF ABX.
--- NOTE | 2019-06-07 13:45 | Progress Note ---
DATE: SUBJECTIVE: The patient is afebrile. Seems some more alert, but she still has some confusion. PHYSICAL EXAMINATION: VITAL SIGNS: The blood pressure is 119/94 and the saturation is 97% on 2 L. HEENT: Shows no facial swelling or erythema. CARDIAC: Reveals regular rate and rhythm with normal S1 and S2. LUNGS: Auscultation of lungs reveals clear breath sounds bilaterally. There is no wheezing. ABDOMEN: Soft and nontender. There is no rebound or guarding. EXTREMITIES: Shows no leg edema or calf tenderness. There is no cyanosis or clubbing. SKIN: Shows no rashes. NEUROLOGICAL: Shows the patient to be more animated, but still not interacting well. LABORATORY DATA: White blood cell count is 14.46 and the hemoglobin is 9.7. The platelet count is 293. The BUN to creatinine ratio is normal. Other electrolytes within normal limits. IMPRESSION: 1. Parotiditis with methicillin-resistant Staph aureus bacteremia. 2. Urinary tract infection. 3. Acute kidney injury. 4. Metabolic encephalopathy. 5. Hypertension. 6. Hypothyroidism. PLAN: 1. Continue current antibiotics. 2. Continue Synthroid. 3. Monitor renal function and electrolytes. 4. Pain control as needed. Dayron Demarco MD [facility]/KARISSA /[id number]
[2019-06-07] MEDS: RIVASTIGMINE TRANSDERMAL 9.5MG/24HOURS PATCH TD SCH (15:24)
--- NOTE | 2019-06-07 16:07 | NUR ---
[facility] FACILITY DISCHARGE INFORMATION PATIENT HAS BEEN ACCEPTED TO: NAME: ABBIE RUDOLPH ADDRESS: [id number] [place] [address] ISMAEL ACCEPTING DISPATCHER BUS AND TROLLEY: ABEL RODRIGUES ACCEPTING MD: DAWN ROOM: 411 NURSE CALL REPORT TO: [phone] IMM SIGNED AND OBTAINED (if applicable): IMM THE FOLLOWING DOCUMENTS MUST ACCOMPANY PATIENT FOR TRANSFER: COPIED CHART: PACKET
--- NOTE | 2019-06-07 17:32 | NUR ---
REPORT GIVEN TO RN WHO IS TAKING OVER CARE OF PATIENT AT THIS TIME. PATIENT IS IN STABLE CONDITION WITH NO S/S OF RESPIRATORY DISTRESS. NO PAIN INDICATED. TUBE FEEDING INFUSING. DIAPER APPLIED. BED ALARM APPLIED. CALL LIGHT IS WITHIN REACH, PATIENT INSTRUCTED TO CALL FOR ASSISTANCE NEEDED.
--- NOTE | 2019-06-07 19:50 | NUR ---
Received change of shift report from AM nurse. Walking rounds completed.
[2019-06-07] MEDS: DONEPEZIL HCL 5 MG TAB PO SCH (20:32)
[2019-06-07] MEDS: ATORVASTATIN 20 MG TAB PO SCH (20:33)
[2019-06-07] MEDS: AMLODIPINE BESYLATE 5 MG TAB PO SCH (20:33)
[2019-06-07] MEDS: MIRTAZAPINE 15 MG TAB PO SCH (20:33)
[2019-06-07] MEDS: LATANOPROST(OPTH) 2.5 ML BTL OP SCH (20:38)
[2019-06-08 00:15] VITALS: BP 132/70
[2019-06-08] MEDS: IPRATROPIUM BROMIDE 0.02% 2.5 ML NEB NEB SCH ×3 (02:55→11:28)
[2019-06-08] MEDS: GUAIFENESIN 200 MG/10 ML UDC PEG SCH ×3 (03:22→14:01)
[2019-06-08 04:46] VITALS: BP 121/62
[2019-06-08] MEDS: VANCOMYCIN 750MG/NS 150ML IVPB 150 ML IV SCH (04:57)
[2019-06-08] MEDS: LEVOTHYROXINE SODIUM 100 MCG TAB PO SCH (04:57)
--- NOTE | 2019-06-08 05:31 | NUR ---
Blood drawn from PICC line and flushed with 10cc of fluid.
[2019-06-08 05:56] LABS: BASOPHILS % 0.2 % (0.0-1.0); EOSINOPHILS # (AUTO) 0.6 (0.0-0.4); EOSINOPHILS % 4.5 % (0.0-6.0); HEMOGLOBIN 9.6 g/dL (12.0-16.0); LYMPHOCYTES % 7.7 % (18.0-39.1); MEAN CORPUSCULAR HEMOGLOBIN 29.8 pg (28-32); MEAN CORPUSCULAR VOLUME 93.2 fL (81-99); MONOCYTES # (AUTO) 0.9 (0.2-0.8); MONOCYTES % 6.8 % (4.4-11.3); NEUTROPHILS % 79.9 % (38.7-80.0); PLATELET COUNT 313 x10e3/uL (140-360); RED BLOOD COUNT 3.22 x10e6/uL (3.6-5.1); RED CELL DISTRIBUTION WIDTH 14.5 % (11.7-14.4)
[2019-06-08 06:23] LABS: ANION GAP 8.5 mmol/L (8-16); BLOOD UREA NITROGEN 14 mg/dL (7-26); BUN/CREATININE RATIO 21 (6-25); CALCIUM 8.6 mg/dL (8.4-10.2); CARBON DIOXIDE 32 mmol/L (22-29); CHLORIDE 100 mmol/L (98-107); CREATININE, SERUM 0.67 mg/dL (0.57-1.11); EST GLOMERULAR FILTRATION RATE > 60 ML/MIN (60-); GLUCOSE 131 mg/dL (74-118); POTASSIUM 3.5 mmol/L (3.5-5.1); SODIUM 137 mmol/L (136-145)
[2019-06-08 08:30] VITALS: BP 108/72
[2019-06-08] MEDS: BENAZEPRIL HCL 10 MG TAB PO SCH (08:32)
--- NOTE | 2019-06-08 08:42 | Progress Note ---
DATE: SUBJECTIVE: The patient is more awake. She has less tenderness in her submandibular area. PHYSICAL EXAMINATION: VITAL SIGNS: The blood pressure is 121/62 and the saturation is 100%. HEENT: Shows no facial swelling or erythema. CARDIAC: Reveals regular rate and rhythm with normal S1 and S2. LUNGS: Auscultation of lungs reveals rhonchorous breath sounds bilaterally. There is no wheezing. ABDOMEN: Soft, nontender. There is no rebound or guarding. EXTREMITIES: Show no leg edema or calf tenderness. IMPRESSION: 1. Parotiditis with methicillin-resistant Staphylococcus aureus bacteremia. 2. Urinary tract infection. 3. Metabolic encephalopathy. 4. Hypertension. 5. Hypothyroidism. PLAN: 1. Continue current antibiotics. 2. Continue Synthroid. 3. Out of bed as tolerated. Dayron Demarco MD [facility]/SURESHL /[id number]
[2019-06-08] MEDS: AZELASTINE HCL(OPTH) 6 ML BOTTLE OP SCH (08:49)
[2019-06-08] MEDS: PANTOPRAZOLE SODIUM 40 MG SUSPDR.PKT PEG SCH (08:49)
[2019-06-08] MEDS: MULTIVITAMINS 5 ML LIQUID GT SCH (08:49)
[2019-06-08] MEDS: APIXABAN 5 MG TABLET PO SCH (09:00)
[2019-06-08] MEDS: HYDROCHLOROTHIAZIDE 25 MG TAB PO SCH (09:00)
[2019-06-08] MEDS: RIVASTIGMINE TRANSDERMAL 9.5MG/24HOURS PATCH TD SCH (09:00)
[2019-06-08] MEDS: SERTRALINE HCL 50 MG TAB PO SCH (09:00)
[2019-06-08] MEDS: METOPROLOL TARTRATE 25 MG TAB PO SCH (09:00)
[2019-06-08] MEDS: AMIODARONE HCL 200 MG TAB PO SCH (09:00)
[2019-06-08] MEDS: MONTELUKAST SODIUM 10 MG TAB PO SCH (09:00)
[2019-06-08 10:22] VITALS: BP 106/78
[2019-06-08 12:32] VITALS: BP 132/68
[2019-06-08] MEDS ORDERED: ONDANSETRON HCL 4 MG ORAL DISINTEGRATING TAB PO PRN (13:30)
--- NOTE | 2019-06-08 23:24 | Discharge Summary ---
ADMISSION DIAGNOSES: Left parotiditis, healthcare-associated pneumonia present on admission with severe sepsis, hypertension, chronic paroxysmal atrial fibrillation, chronic obstructive pulmonary disease without exacerbation, hyperkalemia, advanced dementia with past medical history of cerebrovascular accident and dysphagia, chronic moderate protein-calorie malnutrition, hypothyroidism, glaucoma. DISCHARGE DIAGNOSES: Left parotiditis, healthcare-associated pneumonia present on admission with severe sepsis, hypertension, chronic paroxysmal atrial fibrillation, chronic obstructive pulmonary disease without exacerbation, hyperkalemia, advanced dementia with past medical history of cerebrovascular accident and dysphagia, chronic moderate protein-calorie malnutrition, hypothyroidism, glaucoma, methicillin-resistant Staphylococcus aureus bacteremia present on admission, rule out flu, rule out urinary tract infection. HISTORY: AFib, CHF, stroke on 04/22/2019, COPD, hypothyroidism, glaucoma, hypertension, hyperlipidemia, overactive bladder, DVT, dementia, depression, anxiety. SURGICAL HISTORY: PEG placement, umbilical hernia repair, bilateral cataract removal. FAMILY HISTORY: The patient's mother had a stroke. The patient's father had a CABG. SOCIAL HISTORY: Noncontributory. HOSPITAL COURSE: An 88-year-old female from [facility], admitted via EMS due to noted swelling of the left face for 1 day with difficulty in coughing up phlegm. She was in [facility] for 1 year and then was sent to a [facility] in March. At baseline, she is able to speak, but is hard of hearing. On admission, an echo was ordered that showed an EF of 65% to 70%. CT of the face showed findings suggestive of left parotiditis with left submandibular sialadenitis. No discrete drainable fluid collection. Chest x-ray showed subtle findings of bronchitis. The patient was started on vancomycin and cefepime. Pulmonology was consulted. UA looked as though the patient had a urine infection, but the culture was negative. After a couple days of IV antibiotics, the patient is doing much better. The blood culture came back positive for MRSA, so Infectious Disease was consulted and the patient had a PICC line placed. She will need 6 weeks of IV vancomycin per Infectious Disease recommendation. The patient also had an evaluation by Physical Therapy, who said the patient is total assist and Speech Therapy attempted to do a swallow evaluation per daughter's recommendation, but the patient was unable to follow commands to complete the evaluation on multiple attempts. She will discharge to [facility] as her [facility] is unable to give IV antibiotics and will not allow outside personnel to come in to administer it due to the COVID outbreak. The patient's daughter understands instructions and agrees to plan. Vital signs stable, the patient afebrile. Dictated by Dora Winston NP MD ISHMAEL Sung/MODL /[id number]
== END 2019-06-08 14:19 | DRG 871 ==
LOC: ER 21:42 → ERHOLD 06-03 01:08 → IMCU 06-03 02:21 → MED/SURG3 06-06 17:34
PROVIDERS: ADMIT Internal Medicine; ATTEND Internal Medicine
PROC: 02HV33Z Insertion of Infusion Device into Superior Vena Cava, Percutaneous Approach (ICD-10-PCS; principal; 2019-06-06)
PROC: B548ZZA Ultrasonography of Superior Vena Cava, Guidance (ICD-10-PCS; 2019-06-06)
DX: A41.02 Sepsis due to Methicillin resistant Staphylococcus aureus (principal); G93.41 Metabolic encephalopathy; J15.9 Unspecified bacterial pneumonia; K65.9 Peritonitis, unspecified; I63.81 Other cerebral infarction due to occlusion or stenosis of small artery; N17.9 Acute kidney failure, unspecified; N30.01 Acute cystitis with hematuria; I13.0 Hypertensive heart and chronic kidney disease with heart failure and stage 1 through stage 4 chronic kidney disease, or unspecified chronic kidney disease; E44.0 Moderate protein-calorie malnutrition; I50.32 Chronic diastolic (congestive) heart failure; Z66 Do not resuscitate; Z91.040 Latex allergy status; Z82.49 Family history of ischemic heart disease and other diseases of the circulatory system; Z82.3 Family history of stroke; Z84.89 Family history of other specified conditions; F03.90 Unspecified dementia, unspecified severity, without behavioral disturbance, psychotic disturbance, mood disturbance, and anxiety; I48.0 Paroxysmal atrial fibrillation; J44.9 Chronic obstructive pulmonary disease, unspecified; E03.9 Hypothyroidism, unspecified; E78.5 Hyperlipidemia, unspecified; N32.81 Overactive bladder; R32 Unspecified urinary incontinence; Z09 Encounter for follow-up examination after completed treatment for conditions other than malignant neoplasm; Z79.01 Long term (current) use of anticoagulants; Z86.718 Personal history of other venous thrombosis and embolism; Z93.1 Gastrostomy status; Z87.440 Personal history of urinary (tract) infections; K11.20 Sialoadenitis, unspecified; N18.9 Chronic kidney disease, unspecified; F09 Unspecified mental disorder due to known physiological condition; R65.20 Severe sepsis without septic shock; E87.5 Hyperkalemia; I69.391 Dysphagia following cerebral infarction; R13.10 Dysphagia, unspecified; H40.9 Unspecified glaucoma; J40 Bronchitis, not specified as acute or chronic; Z68.21 Body mass index [BMI] 21.0-21.9, adult; I88.9 Nonspecific lymphadenitis, unspecified; Z74.01 Bed confinement status
CPT/HCPCS: 36415; 36569; 70487; 71045; 80048; 80053; 80202; 81001; 82550; 82553; 83605; 83735; 83880; 84100; 84443; 84484; 85025; 87040; 87071; 87086; 87186; 87205; 87400; 93005; 93306; 94640; 96361; 97139; 99251; 99284; J0360; J0692; J3370; J7030; J7050; Q9967